=== PATIENT | male | born 1960 | race Hispanic/Latino ===

== ENCOUNTER 2017-10-06 06:20 | Emergency (ER) | payer OTHER, SELFPAY ==
[2017-10-06 07:05] LABS: #Basophils 0.1 thou/uL (0.0-0.2); #Eosinphils 0.1 thou/uL (0.0-0.7); #Lymphocytes 1.7 thou/uL (1.20-3.40); #Monocytes 1.1 thou/uL (0.11-0.59); #Neutrophils 10.4 thou/uL (1.40-6.50); %Basophils 0.6 % (0.0-1.0); %Eosinophils 0.4 % (0.0-10.0); %Lymphocytes 12.4 % (21.0-51.0); %Monocytes 8.3 % (0.0-10.0); %Neutrophils 78.3 % (42.0-75.0); Hemoglobin 15.9 g/dL (14.0-18.0); Mean Corpuscular HGB CONC 33.2 g/dL (32.0-36.0); Mean Corpuscular Hemoglobin 30.2 pg (27.0-31.0); Mean Corpuscular Volume 91.2 fl (80.0-94.0); Mean Platelet Volume 6.8 fL (7.4-10.4); Platelet Count 219 thou/uL (130-400); RBC Distribution Width 12.2 % (11.5-14.5); Red Blood Cell (RBC) Count 5.25 mill/uL (4.70-6.10); White Blood Cell (WBC) Count 13.3 thou/uL (4.8-10.8)
[2017-10-06 07:23] LABS: ALT (SGPT) 69 U/L (8-55); AST (SGOT) 53 U/L (5-34); Acetaminophen Less than 6.0 mcg/mL (10.0-30.0); Albumin 4.2 g/dL (3.5-5.0); Alcohol Less than 10 mg/dL (Less than 10); Alkaline Phosphatase 99 U/L (40-150); Anion Gap 16 mmol/L (10-20); BUN (Urea Nitrogen) 43 mg/dL (8.4-25.7); Bilirubin, Total 1.3 mg/dL (0.2-1.2); Calc. Creatinine Clearance 0 mL/min (70-130); Calcium 9.6 mg/dL (7.8-10.44); Carbon Dioxide 23 mmol/L (22-29); Chloride 100 mmol/L (98-107); Estimated GFR-MDRD 58; Globulin 3.7 g/dL (2.4-3.5); Glucose 142 mg/dL (70-105); Protein, Total 7.9 g/dL (6.0-8.3); Salicylate Less than 8.0 mg/dL (15.0-30.0); Sodium 135 mmol/L (136-145)
[2017-10-06 07:27] LABS: Troponin I Less than 0.010 ng/mL (< 0.028)
[2017-10-06 07:37] LABS: CKMB 8.5 ng/mL (0-6.6)
--- NOTE | 2017-10-06 07:42 | CT ---
HEAD CT WITHOUT CONTRAST: 10/06/2017 HISTORY: Altered mental status. COMPARISON: None. TECHNIQUE: Serial axial CT imaging at 5 mm intervals, from the vertex through the skull base, without contrast. FINDINGS: There is no intracranial hemorrhage, midline shift, or mass effect. There is mild white matter hypod ensity, which may signify a degree of small vessel disease. No intracranial hemorrhage, midline shif t, or mass effect. There is polypoid mucosal thickening within the alveolar recess of the right maxi llary sinus. The imaged paranasal sinuses/mastoid air cells are otherwise unremarkable. No displace d calvarial fracture. IMPRESSION: No acute findings. POS: [facility]
--- NOTE | 2017-10-06 07:45 | RAD ---
CHEST ONE VIEW: HISTORY: Altered mental status. COMPARISON: Chest, one view, 07/30/2015. FINDINGS: The lungs are hypoinflated. Bibasilar atelectasis. No pneumothorax. The cardiac silhouette and med iastinal contours are similar. No acute osseous abnormality. IMPRESSION: Lung hypoinflation and atelectasis with elevation of the right hemidiaphragm, chronic. No acute intr athoracic abnormality. POS: [facility]
[2017-10-06 09:36] LABS: Bilirubin Negative (Negative); Blood, Urine Negative (Negative); Clarity CLEAR (Clear); Glucose, Urine (Dipstick) 500 mg/dL (Negative); Leukocyte Negative (Negative); Nitrite Negative (Negative); Protein, Urine (Dipstick) Trace mg/dL (Neg-Trace); Specific Gravity, Urine 1.027 (1.002-1.036); pH, Urine 5.5 (5.0-9.0)
[2017-10-06 09:49] LABS: Amphetamine Not Detected (NotDetected); Barbiturates Screen Not Detected (NotDetected); Benzodiazepine Screen Not Detected (NotDetected); Cocaine Metabolite Screen Not Detected (NotDetected); Medtox Control Line Valid? VALID (VALID); Medtox Reader # READER 4; Methadone Not Detected (NotDetected); Methamphetamine Not Detected (NotDetected); Opiate Screen Not Detected (NotDetected); Oxycodone Screen Not Detected (NotDetected); Phencyclidine (PCP) Not Detected (NotDetected); THC/Cannabinoid Screen Not Detected (NotDetected); Tricyclic Screen Not Detected (NotDetected)
[2017-10-06 15:13] LABS: CKMB 10.2 ng/mL (0-6.6)
[2017-10-06 16:20] LABS: Troponin I Less than 0.010 ng/mL (< 0.028)
[2017-10-06 20:15] LABS: CKMB 7.1 ng/mL (0-6.6); Critical Call CKMBM RESULT DECREASING
== END 2017-10-07 02:47 ==
LOC: ERS 06:20
DX: F20.9 Schizophrenia, unspecified (principal); E11.9 Type 2 diabetes mellitus without complications; I10 Essential (primary) hypertension; I48.91 Unspecified atrial fibrillation; F31.9 Bipolar disorder, unspecified; F41.9 Anxiety disorder, unspecified; Z79.84 Long term (current) use of oral hypoglycemic drugs; Z79.899 Other long term (current) drug therapy
CPT/HCPCS: 36415; 51701; 70450; 71045; 80053; 80306; 80307; 81003; 82553; 84443; 84484; 85025; 93005; 96360; 96361

== ENCOUNTER 2017-10-09 19:09 | Inpatient (IN) | payer SELFPAY ==
[2017-10-09 20:14] LABS: #Basophils 0.1 thou/uL (0.0-0.2); #Eosinphils 0.2 thou/uL (0.0-0.7); #Lymphocytes 1.8 thou/uL (1.20-3.40); #Monocytes 0.8 thou/uL (0.11-0.59); #Neutrophils 6.4 thou/uL (1.40-6.50); %Basophils 0.6 % (0.0-1.0); %Lymphocytes 19.2 % (21.0-51.0); %Monocytes 8.8 % (0.0-10.0); %Neutrophils 69.3 % (42.0-75.0); Hemoglobin 14.8 g/dL (14.0-18.0); Mean Corpuscular HGB CONC 33.6 g/dL (32.0-36.0); Mean Corpuscular Hemoglobin 30.6 pg (27.0-31.0); Mean Corpuscular Volume 91.1 fl (80.0-94.0); Mean Platelet Volume 6.5 fL (7.4-10.4); Platelet Count 255 thou/uL (130-400); RBC Distribution Width 12.1 % (11.5-14.5); Red Blood Cell (RBC) Count 4.85 mill/uL (4.70-6.10); White Blood Cell (WBC) Count 9.2 thou/uL (4.8-10.8)
[2017-10-09 20:36] LABS: ALT (SGPT) 50 U/L (8-55); AST (SGOT) 55 U/L (5-34); Albumin 3.7 g/dL (3.5-5.0); Alkaline Phosphatase 98 U/L (40-150); Anion Gap 14 mmol/L (10-20); BUN (Urea Nitrogen) 28 mg/dL (8.4-25.7); Bilirubin, Total 0.7 mg/dL (0.2-1.2); CK (CPK) 1618 U/L (30-200); Calc. Creatinine Clearance 0 mL/min (70-130); Calcium 9.2 mg/dL (7.8-10.44); Carbon Dioxide 23 mmol/L (22-29); Chloride 106 mmol/L (98-107); Estimated GFR-MDRD 71; Globulin 3.2 g/dL (2.4-3.5); Glucose 122 mg/dL (70-105); Potassium 4.2 mmol/L (3.5-5.1); Protein, Total 6.9 g/dL (6.0-8.3); Sodium 139 mmol/L (136-145)
[2017-10-09 20:40] LABS: Troponin I Less than 0.010 ng/mL (< 0.028)
[2017-10-09 23:24] LABS: Troponin I Less than 0.010 ng/mL (< 0.028)
[2017-10-10 02:30] LABS: Troponin I 0.013 ng/mL (< 0.028)
[2017-10-10] MEDS ORDERED: Dextrose 5% in Water 1,000 ML IV PRN (13:05)
[2017-10-10] MEDS ORDERED: Dextrose 50% Abboject 50 ML SYRINGE SLOW IVP PRN (13:05)
[2017-10-10] MEDS ORDERED: Acetaminophen 325 MG TAB PO PRN (13:05)
[2017-10-10] MEDS ORDERED: HumaLOG 300 UNITS/3 ML VIAL SC PRN (13:05)
[2017-10-10] MEDS ORDERED: Acetaminophen 650 MG Suppository PR PRN (13:05)
--- NOTE | 2017-10-10 13:21 | HP ---
PRIMARY CARE PHYSICIAN: Dr. Ana Maria Tang CHIEF COMPLAINT: Abnormal labs. HISTORY OF PRESENT ILLNESS: Mr. Klein is a pleasant 57-year-old gentleman who was seen at [facility] on 10/10/2017. The patient is mumbling, unable to provide any history. History was obtained from review of medical chart as well as discussion with the emergency room physi yakov. Mr. Klein was at [facility]. He was found to have elevated CK level and was therefore transferred to the emergency room. REVIEW OF SYSTEMS: Review of systems could not be completed due to patient's noncooperation. PAST MEDICAL HISTORY: Chronic atrial fibrillation, bipolar disorder, hypertension, diabetes mellitus type 2, and schizophrenia. PAST SURGICAL HISTORY: Significant for appendectomy and tonsillectomy. SOCIAL HISTORY: He is a resident at [facility]. No history of tobacco us e, alcohol use or recreational drug use. FAMILY HISTORY: Unable to obtain. ALLERGIES: No known drug allergies. CURRENT MEDICATIONS: Amlodipine 10 mg daily, aspirin 325 mg daily, fluoxetine 10 mg daily, glipizide 5 mg 2 times a day, hydralazine 12.5 mg 3 times a day, lisinopril 30 mg daily, metformin 1000 mg 2 t imes a day, pravastatin 80 mg daily, Risperdal 0.5 mg 2 times a day, Plavix 75 mg daily, Zyprexa 10 m g 2 times a day and Klonopin 2 mg 2 times a day. PHYSICAL EXAMINATION: GENERAL: Mr. Klein is awake and alert, not in acute distress. VITAL SIGNS: Blood pressure is 143/98, pulse is 92, his breathing at rate of 18, and saturating 94% on 2 liters of oxygen. He is afebrile. EYES: No scleral icterus. No conjunctival pallor. ENT: Moist mucosal membranes, no oropharyngeal erythema or exudates. NECK: Supple, nontender, normal range of movement. Trachea is midline. RESPIRATORY: Accessory muscles of breathing are not active. Chest wall movements are symmetric bila terally. LUNGS: Clear to auscultation without wheeze, rhonchi or crepitations. CARDIOVASCULAR: S1 and S2 are heard, regular. Peripheral pulses palpable. No carotid bruit, no per icardial rub. ABDOMEN: Soft, nontender, bowel sounds heard, no hepatomegaly, no splenomegaly. MUSCULOSKELETAL: Power is 5/5 in all 4 extremities. NEUROLOGIC: Cranial nerves II-XII intact. Deep tendon reflexes are 2+. SKIN: No rashes or subcutaneous nodules. LYMPHATIC: No cervical lymphadenopathy. PSYCHIATRIC: Normal mood, normal affect. The patient is oriented to person, place, and time. LABORATORY DATA: Mr. Klein's labs and investigations were reviewed. He had an electrocardiogram , which showed atrial fibrillation, no ST changes to suggest an acute coronary syndrome. He has an u nremarkable CBC, normal sodium, normal potassium, elevated blood urea nitrogen of 28, normal creatini ne, elevated AST of 55, normal ALT, normal alkaline phosphatase, normal total bilirubin and elevated CK of 1618. Troponin I is negative x3. ASSESSMENT AND PLAN: Mr. Klein is a pleasant 57-year-old gentleman who was seen at [facility] on 10/10/2017. His problem list includes: 1. Rhabdomyolysis: Review of medical records reveals that he has had rhabdomyolysis in the past as well. He does not have any muscular rigidity on examination today. He will be admitted to the [facility] for intravenous hydration. We will hold his statin for now and recheck CK level. 2. Diabetes mellitus. Start Accu-Cheks, insulin sliding scale. 3. Atrial fibrillation. Stable, continue home medications. 4. Hypertension: Monitor vital signs, titrate antihypertensives as needed. 5. Schizophrenia and bipolar disorder. Continue home medications. Many thanks for allowing me to participate in your patient's care. Please feel free to contact me wi th any questions or concerns. LEVEL OF RISK: Moderate. LEVEL OF COMPLEXITY: Moderate.
[2017-10-10] MEDS: hydrALAZINE 25 MG TAB PO SCH ×2 (17:42→20:31)
[2017-10-10] MEDS: Sodium Chloride 0.9% 1,000 ML IV SCH ×2 (17:42→20:22)
[2017-10-10] MEDS: glipiZIDE 5 MG TAB PO SCH (17:49)
[2017-10-10] MEDS: metFORMIN 500 MG TAB PO SCH (17:49)
[2017-10-10 18:32] VITALS: BMI 32.9
[2017-10-10] MEDS: risperiDONE 1 MG TAB PO SCH (20:29)
[2017-10-10] MEDS: OLANZapine 5 MG TAB PO SCH (20:29)
[2017-10-10] MEDS: clonazePAM 1 MG TAB PO SCH (20:29)
[2017-10-10] MEDS ORDERED: FLU VACC QS2017-18 36 mo. & older 0.5 ML SYRINGE IM ONE (21:00)
[2017-10-11] MEDS: Sodium Chloride 0.9% 1,000 ML IV SCH ×3 (04:26→19:59)
[2017-10-11 05:40] LABS: #Basophils 0.1 thou/uL (0.0-0.2); #Eosinphils 0.4 thou/uL (0.0-0.7); #Lymphocytes 2.7 thou/uL (1.20-3.40); #Monocytes 0.7 thou/uL (0.11-0.59); #Neutrophils 4.3 thou/uL (1.40-6.50); %Basophils 1.3 % (0.0-1.0); %Eosinophils 4.4 % (0.0-10.0); %Lymphocytes 33.2 % (21.0-51.0); %Monocytes 8.4 % (0.0-10.0); %Neutrophils 52.8 % (42.0-75.0); Hemoglobin 14.9 g/dL (14.0-18.0); Mean Corpuscular Volume 93.8 fl (80.0-94.0); Mean Platelet Volume 6.6 fL (7.4-10.4); Platelet Count 240 thou/uL (130-400); White Blood Cell (WBC) Count 8.2 thou/uL (4.8-10.8)
[2017-10-11 05:48] LABS: Anion Gap 11 mmol/L (10-20); BUN (Urea Nitrogen) 10 mg/dL (8.4-25.7); Calc. Creatinine Clearance 137 mL/min (70-130); Calcium 8.7 mg/dL (7.8-10.44); Carbon Dioxide 27 mmol/L (22-29); Chloride 105 mmol/L (98-107); Estimated GFR-MDRD Greater than 90; Glucose 84 mg/dL (70-105); Sodium 139 mmol/L (136-145)
[2017-10-11] MEDS ORDERED: FLUoxetine HCl 10 MG CAP PO SCH (09:00)
[2017-10-11] MEDS ORDERED: Aspirin 325 mg Enteric Coated Tablet PO SCH (09:00)
[2017-10-11] MEDS ORDERED: Clopidogrel Bisulfate 75 MG TAB PO SCH (09:00)
[2017-10-11] MEDS: Amlodipine 10 MG TAB PO SCH (09:06)
[2017-10-11] MEDS: glipiZIDE 5 MG TAB PO SCH (09:06)
[2017-10-11] MEDS: metFORMIN 500 MG TAB PO SCH ×2 (09:06→16:50)
[2017-10-11] MEDS: clonazePAM 1 MG TAB PO SCH ×2 (09:06→20:01)
[2017-10-11] MEDS: hydrALAZINE 25 MG TAB PO SCH ×3 (09:07→20:01)
[2017-10-11] MEDS: risperiDONE 1 MG TAB PO SCH ×2 (09:08→20:01)
[2017-10-11] MEDS: OLANZapine 5 MG TAB PO SCH ×2 (09:08→20:01)
--- NOTE | 2017-10-11 15:29 | PDOC.PN ---
- Subjective Encounter Start Date: 10/11/17 Encounter Start Time: 15:27 Pt seen for followup re: rhabdomyolysis. Appears comfortable, mumbling, unable to complete ROS. - Objective MAR Reviewed: Yes Vital Signs & Weight: Vital Signs (12 hours) Temp Pulse Resp BP Pulse Ox 10/11/17 11:22 98.1 F 80 16 96/61 92 L 10/11/17 08:00 98 F 73 18 94 L 10/11/17 07:16 98 F 73 18 123/82 94 L 10/11/17 04:26 98.7 F 71 20 143/78 H 95 Weight Weight 210 lb 1.608 oz I&O: 10/10/17 10/11/17 10/12/17 06:59 06:59 06:59 Intake Total 1960 Balance 1960 Result Diagrams: 10/11/17 04:44 10/11/17 04:44 Additional Labs: Accuchecks 10/11/17 10/11/17 10/10/17 11:27 04:45 20:30 POC Glucose 78 82 92 10/10/17 10/10/17 19:30 17:48 POC Glucose 53 L* 93 Phys Exam - Physical Examination Constitutional: NAD HEENT: moist MMs Neck: supple Respiratory: clear to auscultation bilateral Cardiovascular: RRR Gastrointestinal: soft Musculoskeletal: no edema Neurological: moves all 4 limbs Lymphatic: no nodes Psychiatric: normal affect Skin: no rash Dx/Plan (1) Rhabdomyolysis Code(s): M62.82 - RHABDOMYOLYSIS Status: Acute Comment: CK improving. Continue IV fluids, recheck CK level. (2) Atrial fibrillation Code(s): I48.91 - UNSPECIFIED ATRIAL FIBRILLATION Status: Chronic Qualifiers: Atrial fibrillation type: chronic Qualified Code(s): I48.2 - Chronic atrial fibrillation Comment: stable (3) Bipolar disorder Code(s): F31.9 - BIPOLAR DISORDER, UNSPECIFIED Status: Chronic Comment: continue home medications (4) Diabetes type 2, controlled Code(s): E11.9 - TYPE 2 DIABETES MELLITUS WITHOUT COMPLICATIONS Status: Chronic Comment: continue accuchecks, insulin sliding scale (5) Hypertension Code(s): I10 - ESSENTIAL (PRIMARY) HYPERTENSION Status: Chronic Comment: Monitor vital signs, titrate antihypertensives as needed. - Plan * . Back to [facility] when CK improves, likely 24-48 hrs. Review of Systems - Medications/Allergies Allergies/Adverse Reactions: Allergies Allergy/AdvReac Type Severity Reaction Status Date / Time No Known Drug Allergies Allergy Verified 03/07/15 00:36 Medications: Current Medications Acetaminophen (Tylenol) 650 mg PO Q4H PRN PRN Reason: Headache/Fever or Pain Acetaminophen (Tylenol) 650 mg VT Q4H PRN PRN Reason: Headache/Fever or Pain Amlodipine Besylate (Norvasc) 10 mg PO DAILY REPLACED BY [facility] Last Admin: 10/11/17 09:06 Dose: 10 mg Aspirin (Ecotrin) 325 mg PO DAILY REPLACED BY [facility] Last Admin: 10/11/17 09:07 Dose: 325 mg Clonazepam (Klonopin) 2 mg PO BID REPLACED BY [facility] Last Admin: 10/11/17 09:06 Dose: 2 mg Clopidogrel Bisulfate (Plavix) 75 mg PO DAILY REPLACED BY [facility] Last Admin: 10/11/17 09:06 Dose: 75 mg Dextrose/Water (Dextrose 50%) 25 gm SLOW IVP PRN PRN PRN Reason: Hypoglycemia Fluoxetine HCl (Prozac) 10 mg PO DAILY REPLACED BY [facility] Last Admin: 10/11/17 09:06 Dose: 10 mg Glipizide (Glucotrol) 5 mg PO BID-AC REPLACED BY [facility] Last Admin: 10/11/17 09:06 Dose: 5 mg Glucagon (Glucagon) 1 mg IM PRN PRN PRN Reason: Hypoglycemia Hydralazine HCl (Apresoline) 12.5 mg PO TID REPLACED BY [facility] Last Admin: 10/11/17 14:44 Dose: Not Given Dextrose/Water (D5w) 1,000 mls @ 0 mls/hr IV .Q0M PRN; As Directed PRN Reason: Hypoglycemia Sodium Chloride (Normal Saline 0.9%) 1,000 mls @ 125 mls/hr IV .Q8H REPLACED BY [facility] Last Admin: 10/11/17 15:03 Dose: 1,000 mls Insulin Human Lispro (Humalog) 0 units SC .MILD SLIDING SCALE PRN PRN Reason: Mild Correctional Scale Metformin HCl (Glucophage) 1,000 mg PO BID-WM REPLACED BY [facility] Last Admin: 10/11/17 09:06 Dose: 1,000 mg Olanzapine (Zyprexa) 10 mg PO BID REPLACED BY [facility] Last Admin: 10/11/17 09:08 Dose: 10 mg Risperidone (Risperidone) 0.5 mg PO BID REPLACED BY [facility] Last Admin: 10/11/17 09:08 Dose: 0.5 mg
[2017-10-11] MEDS ORDERED: Melatonin 3 MG TAB PO PRN (15:32)
[2017-10-11] MEDS: Lorazepam 1 MG TAB PO SCH (20:01)
[2017-10-11] MEDS ORDERED: glipiZIDE 5 MG TAB PO SCH (21:00)
[2017-10-12] MEDS: Sodium Chloride 0.9% 1,000 ML IV SCH ×2 (04:11→12:15)
[2017-10-12 05:30] LABS: #Basophils 0.1 thou/uL (0.0-0.2); #Eosinphils 0.4 thou/uL (0.0-0.7); #Lymphocytes 2.1 thou/uL (1.20-3.40); #Monocytes 0.6 thou/uL (0.11-0.59); %Basophils 0.9 % (0.0-1.0); %Eosinophils 5.6 % (0.0-10.0); %Lymphocytes 29.6 % (21.0-51.0); %Monocytes 8.6 % (0.0-10.0); %Neutrophils 55.3 % (42.0-75.0); Hemoglobin 14.4 g/dL (14.0-18.0); Mean Corpuscular HGB CONC 32.2 g/dL (32.0-36.0); Mean Corpuscular Hemoglobin 29.6 pg (27.0-31.0); Mean Corpuscular Volume 91.9 fl (80.0-94.0); Mean Platelet Volume 6.4 fL (7.4-10.4); Platelet Count 241 thou/uL (130-400); Red Blood Cell (RBC) Count 4.88 mill/uL (4.70-6.10); White Blood Cell (WBC) Count 7.2 thou/uL (4.8-10.8)
[2017-10-12 05:46] LABS: Anion Gap 11 mmol/L (10-20); BUN (Urea Nitrogen) 11 mg/dL (8.4-25.7); CK (CPK) 502 U/L (30-200); Calc. Creatinine Clearance 129 mL/min (70-130); Calcium 8.9 mg/dL (7.8-10.44); Carbon Dioxide 27 mmol/L (22-29); Chloride 108 mmol/L (98-107); Estimated GFR-MDRD Greater than 90; Glucose 90 mg/dL (70-105); Potassium 4.1 mmol/L (3.5-5.1); Sodium 142 mmol/L (136-145)
[2017-10-12] MEDS ORDERED: glipiZIDE 5 MG TAB PO SCH ×4 (08:00→17:00)
[2017-10-12] MEDS ORDERED: Loratadine 10 MG TAB PO PRN (08:17)
[2017-10-12] MEDS ORDERED: Chloraseptic Spray 180 ml Bottle PO PRN (08:17)
[2017-10-12] MEDS ORDERED: HYDROcodone/Acetaminophen 5/325 mg Tablet PO PRN (08:17)
[2017-10-12] MEDS ORDERED: Loperamide HCl 2 MG CAP PO PRN (08:17)
[2017-10-12] MEDS ORDERED: Zolpidem Tartrate 5 MG TAB PO PRN (08:17)
[2017-10-12] MEDS ORDERED: Milk Of Magnesia 30 ML UDCUP PO PRN (08:17)
[2017-10-12] MEDS ORDERED: Eucerin (Mineral Oil/Petrolatum,White) 30 gm Jar TOP PRN (08:17)
[2017-10-12] MEDS ORDERED: Ondansetron HCl/PF 4 MG/2 ML Vial IVP PRN (08:17)
[2017-10-12] MEDS ORDERED: Artificial Tears 18 DROP/0.9 ML EA EYE PRN (08:17)
[2017-10-12] MEDS ORDERED: hydrALAZINE 20 MG/ML VIAL SLOW IVP PRN (08:17)
[2017-10-12] MEDS ORDERED: Ondansetron ODT 4 MG TAB PO PRN (08:17)
[2017-10-12] MEDS ORDERED: Senokot 8.6 MG TAB PO PRN (08:17)
[2017-10-12] MEDS ORDERED: Sodium Chloride 0.65% Nasal 44 ML BOT EA NARE PRN (08:17)
[2017-10-12] MEDS ORDERED: Diabetic Tussin 200 MG/10 ML UDCUP PO PRN (08:17)
[2017-10-12] MEDS ORDERED: Mag-Al 1200 mg/1200 mg/30 ML UDCUP PO PRN (08:17)
[2017-10-12] MEDS: Famotidine 20 MG TAB PO SCH ×2 (08:41→20:13)
[2017-10-12] MEDS: Lisinopril 20 MG TAB PO SCH (08:41)
[2017-10-12] MEDS: Lorazepam 1 MG TAB PO SCH ×5 (08:42→20:13)
[2017-10-12] MEDS: metFORMIN 500 MG TAB PO SCH (08:42)
[2017-10-12] MEDS: clonazePAM 1 MG TAB PO SCH ×2 (08:42→20:13)
[2017-10-12] MEDS: FLUoxetine HCl 10 MG CAP PO SCH (08:42)
[2017-10-12] MEDS: risperiDONE 1 MG TAB PO SCH ×2 (08:42→20:14)
[2017-10-12] MEDS: Aspirin 325 MG TAB PO SCH (08:42)
[2017-10-12] MEDS: Amlodipine 10 MG TAB PO SCH (08:42)
[2017-10-12] MEDS: OLANZapine 5 MG TAB PO SCH ×2 (08:43→20:14)
[2017-10-12] MEDS: hydrALAZINE 25 MG TAB PO SCH ×3 (08:43→20:14)
[2017-10-12] MEDS: Clopidogrel Bisulfate 75 MG TAB PO SCH (08:43)
--- NOTE | 2017-10-12 11:52 | PDOC.PN ---
- Subjective Encounter Start Date: 10/12/17 Encounter Start Time: 09:00 -: old records requested/rev Patient seen and examined. No new complaints. No overnight events pt is sleepy this morning, he is trying to get out of bed, pulls iv line - Objective MAR Reviewed: Yes Vital Signs & Weight: Vital Signs (12 hours) Temp Pulse Resp BP Pulse Ox 10/12/17 08:43 90 10/12/17 08:00 97.9 F 90 16 138/82 94 L 10/12/17 03:50 98.1 F 73 16 148/94 H 93 L 10/12/17 00:19 94 L 10/12/17 00:00 98.0 F 82 16 126/85 92 L Weight Weight 210 lb 1.608 oz I&O: 10/11/17 10/12/17 10/13/17 06:59 06:59 06:59 Intake Total 1960 1949 Output Total 600 Balance 1960 1349 Result Diagrams: 10/12/17 03:52 10/12/17 03:52 Additional Labs: Accuchecks 10/12/17 10/11/17 10/11/17 04:34 19:18 17:22 POC Glucose 92 116 H 150 H 10/11/17 10/11/17 16:02 11:27 POC Glucose 64 L 78 Phys Exam - Physical Examination Constitutional: NAD HEENT: PERRLA, moist MMs, sclera anicteric Neck: no JVD, supple Respiratory: no wheezing, no rales, no rhonchi Cardiovascular: RRR, no significant murmur, no rub Gastrointestinal: soft, non-tender, no distention, positive bowel sounds Musculoskeletal: no edema, pulses present Neurological: moves all 4 limbs Lymphatic: no nodes Skin: no rash, normal turgor Dx/Plan (1) Hypoglycemia associated with type 2 diabetes mellitus Code(s): E11.649 - TYPE 2 DIABETES MELLITUS WITH HYPOGLYCEMIA WITHOUT COMA Status: Acute (2) Rhabdomyolysis Code(s): M62.82 - RHABDOMYOLYSIS Status: Acute Comment: CK improving. Continue IV fluids, recheck CK level. (3) Bipolar disorder Code(s): F31.9 - BIPOLAR DISORDER, UNSPECIFIED Status: Chronic Comment: continue home medications (4) Diabetes type 2, controlled Code(s): E11.9 - TYPE 2 DIABETES MELLITUS WITHOUT COMPLICATIONS Status: Chronic Comment: continue accuchecks, insulin sliding scale (5) Hypertension Code(s): I10 - ESSENTIAL (PRIMARY) HYPERTENSION Status: Chronic Comment: Monitor vital signs, titrate antihypertensives as needed. (6) Lumbar stenosis with neurogenic claudication Code(s): M48.06 - SPINAL STENOSIS, LUMBAR REGION * DO NOT USE * Status: Chronic (7) Obesity (BMI 30-39.9) Code(s): E66.9 - OBESITY, UNSPECIFIED Status: Chronic (8) Paroxysmal atrial fibrillation Code(s): I48.0 - PAROXYSMAL ATRIAL FIBRILLATION Status: Chronic - Plan cont current plan of care, PT/OT, social media strategist * continue ivf at 75 ml per hour * medication reviewed as below * symptomatic treatment. * will need social work for discharge planning Review of Systems - Review of Systems Other: unable to review due to his variable level of mood - Medications/Allergies Allergies/Adverse Reactions: Allergies Allergy/AdvReac Type Severity Reaction Status Date / Time No Known Drug Allergies Allergy Verified 03/07/15 00:36 Medications: Current Medications Acetaminophen (Tylenol) 650 mg PO Q4H PRN PRN Reason: Headache/Fever or Pain Hydrocodone Bitart/Acetaminophen ([place] 5/325) 1 tab PO Q4H PRN PRN Reason: Moderate Pain (4-6) Al Hydroxide/Mg Hydroxide (Maalox) 15 ml PO Q4H PRN PRN Reason: Heartburn or Indigestion Amlodipine Besylate (Norvasc) 10 mg PO DAILY [facility] Last Admin: 10/12/17 08:42 Dose: 10 mg Artificial Tears (Tears Naturale) 0 drop EA EYE PRN PRN PRN Reason: Dry Eyes Aspirin (Aspirin) 325 mg PO DAILY [facility] Last Admin: 10/12/17 08:42 Dose: 325 mg Clonazepam (Klonopin) 2 mg PO BID [facility] Last Admin: 10/12/17 08:42 Dose: 2 mg Clopidogrel Bisulfate (Plavix) 75 mg PO DAILY [facility] Last Admin: 10/12/17 08:43 Dose: 75 mg Dextrose/Water (Dextrose 50%) 25 gm SLOW IVP PRN PRN PRN Reason: Hypoglycemia Famotidine (Pepcid) 20 mg PO BID [facility] Last Admin: 10/12/17 08:41 Dose: 20 mg Fluoxetine HCl (Prozac) 10 mg PO DAILY [facility] Last Admin: 10/12/17 08:42 Dose: 10 mg Glip[facility]) [facility] Glucagon (Glucagon) 1 mg IM PRN PRN PRN Reason: Hypoglycemia Guaifenesin (Robitussin Sf) 200 mg PO Q4H PRN PRN Reason: Cough Hydralazine HCl (Apresoline) 12.5 mg PO TID [facility] Last Admin: 10/12/17 08:43 Dose: 12.5 mg Hydralazine HCl (Apresoline) 20 mg SLOW IVP Q4H PRN PRN Reason: Systolic BP > 180 Dextrose/Water (D5w) 1,000 mls @ 0 mls/hr IV .Q0M PRN; As Directed PRN Reason: Hypoglycemia Sodium Chloride (Normal Saline 0.9%) 1,000 mls @ 125 mls/hr IV .Q8H [facility] Last Admin: 10/12/17 04:11 Dose: 1,000 mls Insulin Human Lispro (Humalog) 0 units SC .MILD SLIDING SCALE PRN PRN Reason: Mild Correctional Scale Lisinopril (Zestril) 30 mg PO DAILY [facility] Last Admin: 10/12/17 08:41 Dose: 30 mg Loperamide HCl (Imodium) 2 mg PO PRN PRN PRN Reason: Diarrhea/Loose Stools Loratadine (Claritin) 10 mg PO DAILYPRN PRN PRN Reason: Sinus Symptoms Lorazepam (Ativan) 1 mg PO TID [facility] Last Admin: 10/12/17 08:42 Dose: 1 mg Magnesium Hydroxide (Milk Of Magnesium) 30 ml PO DAILYPRN PRN PRN Reason: Constipation Melatonin (Melatonin) 3 mg PO HS PRN PRN Reason: Insomnia Metformin HCl (Glucophage) [facility] Last Admin: 10/12/17 08:42 Dose: 1,000 mg Mineral Oil/White Petrolatum (Eucerin Cream) 0 gm TOP BIDPRN PRN PRN Reason: Dry Skin Olanzapine (Zyprexa) 10 mg PO BID [facility] Last Admin: 10/12/17 08:43 Dose: 10 mg Ondansetron HCl (Zofran Odt) 4 mg PO Q6H PRN PRN Reason: Nausea/Vomiting Ondansetron HCl (Zofran) 4 mg IVP Q6H PRN PRN Reason: Nausea/Vomiting Phenol (Chloraseptic [place] 180 Ml Bot) 0 ml PO PRN PRN PRN Reason: Sore Throat Risperidone (Risperidone) 0.5 mg PO BID [facility] Last Admin: 10/12/17 08:42 Dose: 0.5 mg Senna (Senokot) 2 tab PO HSPRN PRN PRN Reason: Constipation Sodium Chloride ([place] Nasal [place] 0.65%) 0 ml EA NARE QIDPRN PRN PRN Reason: Nasal Congestion Sodium Chloride (Flush - Normal Saline) 10 ml IVF Q12HR [facility] Last Admin: 10/12/17 08:43 Dose: Not Given Sodium Chloride (Flush - Normal Saline) 10 ml IVF PRN PRN PRN Reason: Saline Flush Zolpidem Tartrate (Ambien) 5 mg PO HSPRN PRN PRN Reason: Insomnia
[2017-10-13] MEDS: Sodium Chloride 0.9% 1,000 ML IV SCH ×2 (01:27→16:15)
[2017-10-13 05:04] LABS: #Basophils 0.1 thou/uL (0.0-0.2); #Eosinphils 0.4 thou/uL (0.0-0.7); #Lymphocytes 2.8 thou/uL (1.20-3.40); #Monocytes 0.6 thou/uL (0.11-0.59); #Neutrophils 3.8 thou/uL (1.40-6.50); %Eosinophils 5.2 % (0.0-10.0); %Monocytes 8.3 % (0.0-10.0); %Neutrophils 49.5 % (42.0-75.0); Hemoglobin 14.5 g/dL (14.0-18.0); Mean Corpuscular HGB CONC 33.1 g/dL (32.0-36.0); Mean Corpuscular Hemoglobin 30.4 pg (27.0-31.0); Mean Platelet Volume 6.2 fL (7.4-10.4); Platelet Count 245 thou/uL (130-400); Red Blood Cell (RBC) Count 4.76 mill/uL (4.70-6.10); White Blood Cell (WBC) Count 7.7 thou/uL (4.8-10.8)
[2017-10-13 05:36] LABS: Anion Gap 9 mmol/L (10-20); BUN (Urea Nitrogen) 11 mg/dL (8.4-25.7); CK (CPK) 309 U/L (30-200); Calc. Creatinine Clearance 114 mL/min (70-130); Calcium 8.9 mg/dL (7.8-10.44); Carbon Dioxide 29 mmol/L (22-29); Chloride 107 mmol/L (98-107); Estimated GFR-MDRD 81; Glucose 101 mg/dL (70-105); Potassium 4.1 mmol/L (3.5-5.1); Sodium 141 mmol/L (136-145)
[2017-10-13] MEDS: OLANZapine 5 MG TAB PO SCH ×2 (08:14→20:52)
[2017-10-13] MEDS: clonazePAM 1 MG TAB PO SCH ×2 (08:15→20:52)
[2017-10-13] MEDS: Aspirin 325 MG TAB PO SCH (08:15)
[2017-10-13] MEDS: Famotidine 20 MG TAB PO SCH ×2 (08:15→20:53)
[2017-10-13] MEDS: hydrALAZINE 25 MG TAB PO SCH ×3 (08:15→20:54)
[2017-10-13] MEDS: Amlodipine 10 MG TAB PO SCH (08:15)
[2017-10-13] MEDS: FLUoxetine HCl 10 MG CAP PO SCH (08:15)
[2017-10-13] MEDS: Lisinopril 20 MG TAB PO SCH (08:16)
[2017-10-13] MEDS: Lorazepam 1 MG TAB PO SCH ×4 (08:16→20:53)
[2017-10-13] MEDS: Clopidogrel Bisulfate 75 MG TAB PO SCH (08:16)
[2017-10-13] MEDS: risperiDONE 1 MG TAB PO SCH ×2 (08:16→20:52)
--- NOTE | 2017-10-13 11:01 | PDOC.PN ---
- Subjective Encounter Start Date: 10/13/17 Encounter Start Time: 09:30 Patient seen and examined. No new complaints. No overnight events - Objective MAR Reviewed: Yes Vital Signs & Weight: Vital Signs (12 hours) Temp Pulse Resp BP BP Pulse Ox 10/13/17 08:16 137/86 10/13/17 08:00 98.6 F 77 20 144/84 H 93 L 10/13/17 07:38 98.6 F 77 20 144/84 H 93 L 10/13/17 04:00 97.7 F 88 20 130/85 94 L 10/13/17 00:17 98.3 F 88 20 116/84 95 Weight Weight 210 lb 1.608 oz I&O: 10/12/17 10/13/17 10/14/17 06:59 06:59 06:59 Intake Total 1949 1658 Output Total 600 Balance 1349 1658 Result Diagrams: 10/13/17 04:20 10/13/17 04:20 Additional Labs: Accuchecks 10/13/17 10/12/17 10/12/17 04:39 19:22 16:10 POC Glucose 100 172 H 112 H 10/12/17 11:06 POC Glucose 107 Phys Exam - Physical Examination Constitutional: NAD HEENT: PERRLA, moist MMs, sclera anicteric Neck: no JVD, supple Respiratory: no wheezing, no rales, no rhonchi Cardiovascular: RRR, no significant murmur, no rub Gastrointestinal: soft, non-tender, no distention, positive bowel sounds Musculoskeletal: no edema, pulses present Neurological: non-focal, normal sensation Lymphatic: no nodes Psychiatric: normal affect Skin: no rash, normal turgor Dx/Plan (1) Hypoglycemia associated with type 2 diabetes mellitus Code(s): E11.649 - TYPE 2 DIABETES MELLITUS WITH HYPOGLYCEMIA WITHOUT COMA Status: Acute (2) Rhabdomyolysis Code(s): M62.82 - RHABDOMYOLYSIS Status: Acute Comment: CK improving. Continue IV fluids, recheck CK level. (3) Bipolar disorder Code(s): F31.9 - BIPOLAR DISORDER, UNSPECIFIED Status: Chronic Comment: continue home medications (4) Diabetes type 2, controlled Code(s): E11.9 - TYPE 2 DIABETES MELLITUS WITHOUT COMPLICATIONS Status: Chronic Comment: continue accuchecks, insulin sliding scale (5) Hypertension Code(s): I10 - ESSENTIAL (PRIMARY) HYPERTENSION Status: Chronic Comment: Monitor vital signs, titrate antihypertensives as needed. (6) Lumbar stenosis with neurogenic claudication Code(s): M48.06 - SPINAL STENOSIS, LUMBAR REGION * DO NOT USE * Status: Chronic (7) Obesity (BMI 30-39.9) Code(s): E66.9 - OBESITY, UNSPECIFIED Status: Chronic (8) Paroxysmal atrial fibrillation Code(s): I48.0 - PAROXYSMAL ATRIAL FIBRILLATION Status: Chronic - Plan cont current plan of care * CK improved * today will call [facility] * needs to go back to psych facility if they take him * medication reviewed as below * symptomatic treatment. Review of Systems - Review of Systems Other: not reliable with pt as pt is psychotic - Medications/Allergies Allergies/Adverse Reactions: Allergies Allergy/AdvReac Type Severity Reaction Status Date / Time No Known Drug Allergies Allergy Verified 03/07/15 00:36 Medications: Current Medications Acetaminophen (Tylenol) 650 mg PO Q4H PRN PRN Reason: Headache/Fever or Pain Hydrocodone Bitart/Acetaminophen ([place] 5/325) 1 tab PO Q4H PRN PRN Reason: Moderate Pain (4-6) Al Hydroxide/Mg Hydroxide (Maalox) 15 ml PO Q4H PRN PRN Reason: Heartburn or Indigestion Amlodipine Besylate (Norvasc) 10 mg PO DAILY [facility] Last Admin: 10/13/17 08:15 Dose: 10 mg Artificial Tears (Tears Naturale) 0 drop EA EYE PRN PRN PRN Reason: Dry Eyes Aspirin (Aspirin) 325 mg PO DAILY [facility] Last Admin: 10/13/17 08:15 Dose: 325 mg Clonazepam (Klonopin) 2 mg PO BID [facility] Last Admin: 10/13/17 08:15 Dose: 2 mg Clopidogrel Bisulfate (Plavix) 75 mg PO DAILY [facility] Last Admin: 10/13/17 08:16 Dose: 75 mg Dextrose/Water (Dextrose 50%) 25 gm SLOW IVP PRN PRN PRN Reason: Hypoglycemia Famotidine (Pepcid) 20 mg PO BID [facility] Last Admin: 10/13/17 08:15 Dose: 20 mg Fluoxetine HCl (Prozac) 10 mg PO DAILY [facility] Last Admin: 10/13/17 08:15 Dose: 10 mg Glucagon (Glucagon) 1 mg IM PRN PRN PRN Reason: Hypoglycemia Guaifenesin (Robitussin Sf) 200 mg PO Q4H PRN PRN Reason: Cough Hydralazine HCl (Apresoline) 12.5 mg PO TID [facility] Last Admin: 10/13/17 08:15 Dose: 12.5 mg Hydralazine HCl (Apresoline) 20 mg SLOW IVP Q4H PRN PRN Reason: Systolic BP > 180 Dextrose/Water (D5w) 1,000 mls @ 0 mls/hr IV .Q0M PRN; As Directed PRN Reason: Hypoglycemia Sodium Chloride (Normal Saline 0.9%) 1,000 mls @ 75 mls/hr IV .[id number] [facility] Last Admin: 10/13/17 01:27 Dose: 1,000 mls Insulin Human Lispro (Humalog) 0 units SC .MILD SLIDING SCALE PRN PRN Reason: Mild Correctional Scale Lisinopril (Zestril) 30 mg PO DAILY [facility] Last Admin: 10/13/17 08:16 Dose: 30 mg Loperamide HCl (Imodium) 2 mg PO PRN PRN PRN Reason: Diarrhea/Loose Stools Loratadine (Claritin) 10 mg PO DAILYPRN PRN PRN Reason: Sinus Symptoms Lorazepam (Ativan) 1 mg PO TID [facility] Last Admin: 10/13/17 08:16 Dose: 1 mg Magnesium Hydroxide (Milk Of Magnesium) 30 ml PO DAILYPRN PRN PRN Reason: Constipation Last Admin: 10/13/17 08:29 Dose: 30 ml Melatonin (Melatonin) 3 mg PO HS PRN PRN Reason: Insomnia Mineral Oil/White Petrolatum (Eucerin Cream) 0 gm TOP BIDPRN PRN PRN Reason: Dry Skin Olanzapine (Zyprexa) 10 mg PO BID [facility] Last Admin: 10/13/17 08:14 Dose: 10 mg Ondansetron HCl (Zofran Odt) 4 mg PO Q6H PRN PRN Reason: Nausea/Vomiting Ondansetron HCl (Zofran) 4 mg IVP Q6H PRN PRN Reason: Nausea/Vomiting Phenol (Chloraseptic [place] 180 Ml Bot) 0 ml PO PRN PRN PRN Reason: Sore Throat Risperidone (Risperidone) 0.5 mg PO BID [facility] Last Admin: 10/13/17 08:16 Dose: 0.5 mg Senna (Senokot) 2 tab PO HSPRN PRN PRN Reason: Constipation Sodium Chloride ([place] Nasal [place] 0.65%) 0 ml EA NARE QIDPRN PRN PRN Reason: Nasal Congestion Sodium Chloride (Flush - Normal Saline) 10 ml IVF Q12HR [facility] Last Admin: 10/13/17 08:16 Dose: Not Given Sodium Chloride (Flush - Normal Saline) 10 ml IVF PRN PRN PRN Reason: Saline Flush Zolpidem Tartrate (Ambien) 5 mg PO HSPRN PRN PRN Reason: Insomnia
[2017-10-14] MEDS: Sodium Chloride 0.9% 1,000 ML IV SCH (04:03)
[2017-10-14] MEDS: clonazePAM 1 MG TAB PO SCH ×2 (09:10→20:48)
[2017-10-14] MEDS: Amlodipine 10 MG TAB PO SCH (09:10)
[2017-10-14] MEDS: Aspirin 325 MG TAB PO SCH (09:10)
[2017-10-14] MEDS: hydrALAZINE 25 MG TAB PO SCH ×3 (09:11→20:48)
[2017-10-14] MEDS: Famotidine 20 MG TAB PO SCH ×2 (09:11→20:49)
[2017-10-14] MEDS: FLUoxetine HCl 10 MG CAP PO SCH (09:11)
[2017-10-14] MEDS: Lisinopril 20 MG TAB PO SCH (09:12)
[2017-10-14] MEDS: Lorazepam 1 MG TAB PO SCH ×3 (09:13→20:49)
[2017-10-14] MEDS: Clopidogrel Bisulfate 75 MG TAB PO SCH (09:14)
[2017-10-14] MEDS: OLANZapine 5 MG TAB PO SCH ×2 (09:14→22:06)
[2017-10-14] MEDS: risperiDONE 1 MG TAB PO SCH ×2 (09:58→22:05)
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
--- NOTE | 2017-10-14 23:52 | PDOC.EVN ---
Event Note - Event Note Event Note: Bed free at the inpatient psychiatri c facility, report calleed to Dr Swain, pt accepted. Transferred to [facility] D/C summary per Dr Bhatt
--- NOTE | 2017-10-15 06:55 | PDOC.PN ---
- Subjective Encounter Start Date: 10/15/17 Encounter Start Time: 06:00 Patient seen and examined. No new complaints. No overnight events - Objective MAR Reviewed: Yes Vital Signs & Weight: Vital Signs (12 hours) Temp Pulse Resp BP BP Pulse Ox 10/15/17 04:30 97.7 F 89 20 142/90 H 95 10/15/17 00:52 97.6 F 69 18 123/90 94 L 10/14/17 20:48 79 137/91 H 10/14/17 20:00 98.1 F 77 20 137/91 H 94 L Weight Weight 210 lb 1.608 oz I&O: 10/13/17 10/14/17 10/15/17 06:59 06:59 06:59 Intake Total 6395 569 7849 Balance 3030 674 8938 Result Diagrams: 10/13/17 04:20 10/13/17 04:20 Additional Labs: Accuchecks 10/15/17 10/14/17 10/14/17 05:44 19:32 15:55 POC Glucose 146 H 147 H 91 10/14/17 11:10 POC Glucose 109 Phys Exam - Physical Examination Constitutional: NAD HEENT: PERRLA, moist MMs, sclera anicteric Neck: no JVD, supple Respiratory: no wheezing, no rales, no rhonchi Cardiovascular: RRR, no significant murmur, no rub Gastrointestinal: soft, non-tender, no distention, positive bowel sounds Musculoskeletal: no edema, pulses present Neurological: non-focal, normal sensation Lymphatic: no nodes Psychiatric: normal affect Skin: no rash, normal turgor Dx/Plan (1) Hypoglycemia associated with type 2 diabetes mellitus Code(s): E11.649 - TYPE 2 DIABETES MELLITUS WITH HYPOGLYCEMIA WITHOUT COMA Status: Resolved (2) Rhabdomyolysis Code(s): M62.82 - RHABDOMYOLYSIS Status: Resolved Comment: CK improving. Continue IV fluids, recheck CK level. (3) Bipolar disorder Code(s): F31.9 - BIPOLAR DISORDER, UNSPECIFIED Status: Chronic Comment: continue home medications (4) Diabetes type 2, controlled Code(s): E11.9 - TYPE 2 DIABETES MELLITUS WITHOUT COMPLICATIONS Status: Chronic Comment: continue accuchecks, insulin sliding scale (5) Hypertension Code(s): I10 - ESSENTIAL (PRIMARY) HYPERTENSION Status: Chronic Comment: Monitor vital signs, titrate antihypertensives as needed. (6) Lumbar stenosis with neurogenic claudication Code(s): M48.06 - SPINAL STENOSIS, LUMBAR REGION * DO NOT USE * Status: Chronic (7) Obesity (BMI 30-39.9) Code(s): E66.9 - OBESITY, UNSPECIFIED Status: Chronic (8) Paroxysmal atrial fibrillation Code(s): I48.0 - PAROXYSMAL ATRIAL FIBRILLATION Status: Chronic - Plan cont current plan of care * medication reviewed as below * symptomatic treatment * plan for discharge to psych facility. Review of Systems - Review of Systems Eyes: negative: Pain, Vision Change, Conjunctivae Inflammation, Eyelid Inflammation, Redness, Other ENT: negative: Ear Pain, Ear Discharge, Nose Pain, Nose Discharge, Nose Congestion, Mouth Pain, Mouth Swelling, Throat Pain, Throat Swelling, Other Respiratory: negative: Cough, Dry, Shortness of Breath, Hemoptysis, SOB with Excertion, Pleuritic Pain, Sputum, Wheezing Cardiovascular: negative: chest pain, palpitations, orthopnea, paroxysmal nocturnal dyspnea, edema, light headedness, other Gastrointestinal: negative: Nausea, Vomiting, Abdominal Pain, Diarrhea, Constipation, Melena, Hematochezia, Other Genitourinary: negative: Dysuria, Frequency, Incontinence, Hematuria, Retention , Other Musculoskeletal: negative: Neck Pain, Shoulder Pain, Arm Pain, Back Pain, Hand Pain, Leg Pain, Foot Pain, Other - Medications/Allergies Allergies/Adverse Reactions: Allergies Allergy/AdvReac Type Severity Reaction Status Date / Time No Known Drug Allergies Allergy Verified 03/07/15 00:36 Medications: Current Medications Acetaminophen (Tylenol) 650 mg PO Q4H PRN PRN Reason: Headache/Fever or Pain Last Admin: 10/13/17 12:49 Dose: 650 mg Hydrocodone Bitart/Acetaminophen ([place] 5/325) 1 tab PO Q4H PRN PRN Reason: Moderate Pain (4-6) Al Hydroxide/Mg Hydroxide (Maalox) 15 ml PO Q4H PRN PRN Reason: Heartburn or Indigestion Amlodipine Besylate (Norvasc) 10 mg PO DAILY [facility] Last Admin: 10/14/17 09:10 Dose: 10 mg Artificial Tears (Tears Naturale) 0 drop EA EYE PRN PRN PRN Reason: Dry Eyes Aspirin (Aspirin) 325 mg PO DAILY [facility] Last Admin: 10/14/17 09:10 Dose: 325 mg Clonazepam (Klonopin) 2 mg PO BID [facility] Last Admin: 10/14/17 20:48 Dose: 2 mg Clopidogrel Bisulfate (Plavix) 75 mg PO DAILY [facility] Last Admin: 10/14/17 09:14 Dose: 75 mg Dextrose/Water (Dextrose 50%) 25 gm SLOW IVP PRN PRN PRN Reason: Hypoglycemia Famotidine (Pepcid) 20 mg PO BID [facility] Last Admin: 10/14/17 20:49 Dose: 20 mg Fluoxetine HCl (Prozac) 10 mg PO DAILY [facility] Last Admin: 10/14/17 09:11 Dose: 10 mg Glucagon (Glucagon) 1 mg IM PRN PRN PRN Reason: Hypoglycemia Guaifenesin (Robitussin Sf) 200 mg PO Q4H PRN PRN Reason: Cough Hydralazine HCl (Apresoline) 12.5 mg PO TID [facility] Last Admin: 10/14/17 20:48 Dose: 12.5 mg Hydralazine HCl (Apresoline) 20 mg SLOW IVP Q4H PRN PRN Reason: Systolic BP > 180 Dextrose/Water (D5w) 1,000 mls @ 0 mls/hr IV .Q0M PRN; As Directed PRN Reason: Hypoglycemia Insulin Human Lispro (Humalog) 0 units SC .MILD SLIDING SCALE PRN PRN Reason: Mild Correctional Scale Lisinopril (Zestril) 30 mg PO DAILY [facility] Last Admin: 10/14/17 09:12 Dose: 30 mg Loperamide HCl (Imodium) 2 mg PO PRN PRN PRN Reason: Diarrhea/Loose Stools Loratadine (Claritin) 10 mg PO DAILYPRN PRN PRN Reason: Sinus Symptoms Lorazepam (Ativan) 1 mg PO TID [facility] Last Admin: 10/14/17 20:49 Dose: 1 mg Magnesium Hydroxide (Milk Of Magnesium) 30 ml PO DAILYPRN PRN PRN Reason: Constipation Last Admin: 10/13/17 08:29 Dose: 30 ml Melatonin (Melatonin) 3 mg PO HS PRN PRN Reason: Insomnia Mineral Oil/White Petrolatum (Eucerin Cream) 0 gm TOP BIDPRN PRN PRN Reason: Dry Skin Olanzapine (Zyprexa) 10 mg PO BID [facility] Last Admin: 10/14/17 22:06 Dose: 10 mg Ondansetron HCl (Zofran Odt) 4 mg PO Q6H PRN PRN Reason: Nausea/Vomiting Ondansetron HCl (Zofran) 4 mg IVP Q6H PRN PRN Reason: Nausea/Vomiting Phenol (Chloraseptic [place] 180 Ml Bot) 0 ml PO PRN PRN PRN Reason: Sore Throat Risperidone (Risperidone) 0.5 mg PO BID [facility] Last Admin: 10/14/17 22:05 Dose: 0.5 mg Senna (Senokot) 2 tab PO HSPRN PRN PRN Reason: Constipation Sodium Chloride ([place] Nasal [place] 0.65%) 0 ml EA NARE QIDPRN PRN PRN Reason: Nasal Congestion Sodium Chloride (Flush - Normal Saline) 10 ml IVF Q12HR [facility] Last Admin: 10/14/17 20:54 Dose: 10 ml Sodium Chloride (Flush - Normal Saline) 10 ml IVF PRN PRN PRN Reason: Saline Flush Zolpidem Tartrate (Ambien) 5 mg PO HSPRN PRN PRN Reason: Insomnia
[2017-10-15 08:08] VITALS: BP 107/78
[2017-10-15] MEDS: Clopidogrel Bisulfate 75 MG TAB PO SCH (08:28)
[2017-10-15] MEDS: Famotidine 20 MG TAB PO SCH (08:28)
[2017-10-15] MEDS: FLUoxetine HCl 10 MG CAP PO SCH (08:28)
[2017-10-15] MEDS: Aspirin 325 MG TAB PO SCH (08:28)
[2017-10-15] MEDS: risperiDONE 1 MG TAB PO SCH (08:29)
[2017-10-15] MEDS: OLANZapine 5 MG TAB PO SCH (08:29)
[2017-10-15 08:48] VITALS: TEMP 97.2
--- NOTE | 2017-10-15 11:55 | DIS ---
DATE OF ADMISSION: 10/09/2017 DATE OF DISCHARGE: 10/15/2017 PRIMARY CARE PHYSICIAN: [facility] call admission. DISCHARGE DISPOSITION: Inpatient psych facility. PRIMARY DISCHARGE DIAGNOSES: Psychosis, rhabdomyolysis. SECONDARY DISCHARGE DIAGNOSES: Schizophrenia, bipolar disorder, diabetes type 2, hypertension, lumba r stenosis with neurogenic claudication, obesity with body mass index 32, paroxysmal atrial fibrillat ion, diabetes type 2, hypoglycemia and rhabdomyolysis improved. PRIMARY PROCEDURE/OPERATION: None. RADIOLOGICAL INVESTIGATION: None. SIGNIFICANT LABORATORY DATA: Hemoglobin 14.5, CK 309, creatinine 0.96. DISCHARGE MEDICATIONS: Amlodipine 10 mg p.o. daily, aspirin 325 mg p.o. daily, clonazepam 2 mg p.o. b.i.d., Plavix 75 mg p.o. daily, Prozac 10 mg p.o. daily, glipizide 5 mg p.o. b.i.d., hydralazine 12. 5 mg p.o. t.i.d., lisinopril 30 mg p.o. daily, Ativan 1 mg p.o. t.i.d., melatonin 3 mg p.o. at bedtim e p.r.n., metformin 1000 mg p.o. b.i.d., Zyprexa 10 mg p.o. b.i.d., pravastatin 80 mg p.o. at bedtime , and risperidone 0.5 mg p.o. b.i.d. CONTRAINDICATIONS: None. CODE STATUS: FULL CODE. INPATIENT CONSULTANTS: None. ALLERGIES: No known drug allergy. DISCHARGE PLAN: Post hospital, patient will follow up with primary care physician. The patient is d ischarged to inpatient psych facility at [facility]. HOSPITAL COURSE: A 57-year-old male who was admitted by Dr. Arias, please see his H&P for f urther details. This patient has underlying history of bipolar disorder, schizophrenia. He was at [facility] where he was found with rhabdomyolysis and that is why he was sent to our hospital for medical treatment. The patient was hydrated with IV fluid and his CK improved to basel ine and normal. While in hospital, he was persistently psychotic and that is why we consulted [facility] a nd MR agreed to send him to inpatient psych facility. At this point, patient is hemodynamically stable while in hospital. He had one episode of hypoglycem ia, but that was resolved. His rhabdomyolysis, improved. The patient is seen and examined this morning, doc to doc was done. The patient is [facility]. Please see my progress note from today for further detail.
--- NOTE | 2017-10-18 22:58 | EKG ---
Test Reason : Blood Pressure : / mmHG Vent. Rate : 097 BPM Atrial Rate : 053 BPM P-R Int : 000 ms QRS Dur : 082 ms QT Int : 340 ms P-R-T Axes : 000 037 043 degrees QTc Int : 431 ms Atrial fibrillation RSR' or QR pattern in V1 suggests right ventricular conduction delay Septal infarct , age undetermined Abnormal ECG Confirmed by SANDI SEVILLA, SHELLEY ([id number]), manager editorial GARY CALIXTO ([id number]) on 10/18/2017 10:58:05 PM Referred By: Confirmed By:SHELLEY JUNIOR MD
== END 2017-10-15 08:47 | DRG 558 ==
LOC: ERS 19:09 → ERHOLD 21:10 → T4-B 10-10 15:58 → 3SW 10-14 23:53 → T4-B 10-15 00:04
PROVIDERS: ADMIT Internal Medicine; ATTEND Internal Medicine
PROC: 3E0234Z Introduction of Serum, Toxoid and Vaccine into Muscle, Percutaneous Approach (ICD-10-PCS; principal; 2017-10-15)
DX: Z23 Encounter for immunization; F20.9 Schizophrenia, unspecified; Z79.4 Long term (current) use of insulin; I48.2 Chronic atrial fibrillation; E66.9 Obesity, unspecified; M48.062 Spinal stenosis, lumbar region with neurogenic claudication; M62.82 Rhabdomyolysis; I48.0 Paroxysmal atrial fibrillation; E11.649 Type 2 diabetes mellitus with hypoglycemia without coma; F31.9 Bipolar disorder, unspecified; I10 Essential (primary) hypertension; Z68.32 Body mass index [BMI] 32.0-32.9, adult
CPT/HCPCS: 36415; 36416; 80048; 80053; 82550; 82553; 84484; 85025; 90471; 90682; 90732; 93005; 96360; 96361; A4216; G0008; G0009; Q2036

== ENCOUNTER 2017-10-25 15:46 | Observation (INO) | payer SELFPAY ==
[2017-10-25 16:38] LABS: Bilirubin Small (Negative); Blood, Urine Negative (Negative); Clarity CLEAR (Clear); Glucose, Urine (Dipstick) Negative (Negative); Leukocyte Negative (Negative); Nitrite Negative (Negative); Protein, Urine (Dipstick) Trace mg/dL (Neg-Trace); Specific Gravity, Urine 1.026 (1.002-1.036)
[2017-10-25 16:41] LABS: #Basophils 0.1 thou/uL (0.0-0.2); #Eosinphils 0.2 thou/uL (0.0-0.7); #Lymphocytes 2.8 thou/uL (1.20-3.40); #Monocytes 0.5 thou/uL (0.11-0.59); #Neutrophils 3.8 thou/uL (1.40-6.50); %Basophils 1.2 % (0.0-1.0); %Eosinophils 2.4 % (0.0-10.0); %Lymphocytes 38.5 % (21.0-51.0); %Monocytes 6.9 % (0.0-10.0); Hemoglobin 13.9 g/dL (14.0-18.0); Mean Corpuscular HGB CONC 33.5 g/dL (32.0-36.0); Mean Corpuscular Hemoglobin 31.3 pg (27.0-31.0); Mean Corpuscular Volume 93.3 fl (80.0-94.0); Mean Platelet Volume 7.3 fL (7.4-10.4); Platelet Count 229 thou/uL (130-400); RBC Distribution Width 12.2 % (11.5-14.5); Red Blood Cell (RBC) Count 4.44 mill/uL (4.70-6.10); White Blood Cell (WBC) Count 7.4 thou/uL (4.8-10.8)
[2017-10-25 16:52] LABS: Amphetamine Not Detected (NotDetected); Barbiturates Screen Not Detected (NotDetected); Benzodiazepine Screen Not Detected (NotDetected); Cocaine Metabolite Screen Not Detected (NotDetected); Medtox Control Line Valid? VALID (VALID); Medtox Reader # READER 1; Methadone Not Detected (NotDetected); Methamphetamine Not Detected (NotDetected); Opiate Screen Not Detected (NotDetected); Oxycodone Screen Not Detected (NotDetected); Phencyclidine (PCP) Not Detected (NotDetected); THC/Cannabinoid Screen Not Detected (NotDetected); Tricyclic Screen Not Detected (NotDetected)
[2017-10-25 16:55] LABS: Lactic Acid 3.3 mmol/L (0.5-2.2)
[2017-10-25 17:02] LABS: ALT (SGPT) 57 U/L (8-55); AST (SGOT) 65 U/L (5-34); Alkaline Phosphatase 92 U/L (40-150); Anion Gap 16 mmol/L (10-20); BUN (Urea Nitrogen) 20 mg/dL (8.4-25.7); Bilirubin, Total 0.7 mg/dL (0.2-1.2); CK (CPK) 1783 U/L (30-200); Calc. Creatinine Clearance 0 mL/min (70-130); Calcium 9.5 mg/dL (7.8-10.44); Carbon Dioxide 22 mmol/L (22-29); Chloride 106 mmol/L (98-107); Estimated GFR-MDRD 79; Globulin 3.2 g/dL (2.4-3.5); Glucose 106 mg/dL (70-105); Protein, Total 7.2 g/dL (6.0-8.3); Sodium 140 mmol/L (136-145)
[2017-10-25 17:05] LABS: Troponin I Less than 0.010 ng/mL (< 0.028)
[2017-10-25 17:10] LABS: CKMB 9.1 ng/mL (0-6.6)
--- NOTE | 2017-10-25 17:28 | RAD ---
SINGLE VIEW OF THE CHEST: 10/25/17 COMPARISON: 10/06/17 HISTORY: Altered mental status with abdominal pain. FINDINGS: Single view of the chest shows a normal sized cardiomediastinal silhouette. There is no evidence of c onsolidation, mass, or pleural effusion. The bones are unremarkable. IMPRESSION: No evidence of acute cardiopulmonary disease. POS: [facility]
--- NOTE | 2017-10-25 17:34 | CT ---
CT OF THE BRAIN WITHOUT CONTRAST: 10/25/17 COMPARISON: None. HISTORY: Altered mental status. History of schizophrenia and bipolar disorder. TECHNIQUE: Multiple contiguous axial images were obtained in a CT of the brain without contrast. FINDINGS: The brain is normal in morphology and attenuation without focal lesions or confluent areas of infarct ion. There is no evidence of hydrocephalus, intracranial hemorrhage or extra-axial fluid collection. The calvarium and overlying soft tissues are unremarkable. The visualized paranasal sinuses and masto id air cells are well aerated. IMPRESSION: No evidence of acute intracranial abnormality. POS: [facility]
--- NOTE | 2017-10-25 17:36 | CT ---
CT OF THE ABDOMEN AND PELVIS WITH CONTRAST: 10/25/17 COMPARISON: None. HISTORY: Right sided abdominal pain. Patient has schizophrenic and bipolar disorder. TECHNIQUE: Multiple contiguous axial images were obtained in a CT of the abdomen and pelvis with contrast. Coron al reformats were performed. FINDINGS: There is a 4.4 cm cyst in the left kidney. The liver, gallbladder, right kidney, adrenal glands, sple en, and pancreas are unremarkable. No free air, free fluid or stranding changes are seen in the abdom en or pelvis. The large and small bowel are unremarkable. The appendix is normal. No abdominal or pelvic lymphadeno odin are seen. Degenerative changes are seen in the spine. The visualized inferior thorax and abdomi nal wall soft tissues are unremarkable. IMPRESSION: 1. No evidence of acute intra-abdominal/pelvic abnormality. 2. Left renal cyst. POS: [facility]
--- NOTE | 2017-10-25 23:24 | HP ---
PRIMARY CARE PHYSICIAN: [facility] call [facility]. REASON FOR ADMISSION: Transfer from [facility] for rhabdomyolysis. HISTORY OF PRESENT ILLNESS: A 57-year-old male who has underlying schizophrenia, who was re cently admitted in our hospital on 10/10/2017 and he was discharged to [facility] on 10/15/2017. During that admission, we treated him for rhabdomyolysis. Unfortunately, thi s patient is schizophrenic and he is talking irrelevantly and he is not able to provide any reliable history, so history from him is not obtained. At [facility], they checked total CK, it was elevated. In the emergency r oom, the patient was given IV fluid. The patient's renal function was normal. The patient was tried to send him back to [facility], but they refused to take him and that is why patient is being admitted in our hospital for observation. REVIEW OF SYSTEMS: All review of systems tried to review with the patient, but unable to review katie use of his cognitive status, underlying schizophrenia and he is completely unreliable. ALLERGIES: No known drug allergy. CURRENT HOME MEDICATIONS: Amlodipine 10 mg p.o. daily, glipizide 5 mg p.o. b.i.d., lisinopril 30 mg p.o. daily, metformin 1000 mg p.o. b.i.d., risperidone 0.5 mg twice daily, Plavix 75 mg p.o. daily, D epakote 250 mg p.o. b.i.d., Pepcid 20 mg twice daily, Remeron 15 mg p.o. daily, perphenazine 2 mg twi ce daily. PAST MEDICAL HISTORY: Chronic atrial fibrillation, hypertension, diabetes type 2. PAST PSYCHIATRIC HISTORY: Bipolar disorder, schizophrenia. PAST SURGICAL HISTORY: Appendicectomy, tonsillectomy. SOCIAL HISTORY: The patient is transferred from [facility]. No history o f tobacco, alcohol or illicit drug abuse. FAMILY HISTORY: No strong family history of premature coronary artery disease, stroke or cancer as p er our medical record. EMERGENCY ROOM COURSE: The patient has received IV fluid 3 liter. PHYSICAL EXAMINATION: VITAL SIGNS: On arrival, blood pressure 118/80, pulse 83 irregular, respiratory rate 17, temperature 99.3, saturation 99% on room air, weight 90.7 kilograms. GENERAL: The patient is currently awake, talking irrelevantly, confused, psychotic. HEAD: Normocephalic, atraumatic. EYES: Pupils are round, reactive to light. Extraocular muscle intact. ENT: Oropharynx within normal limits. Moist mucous membranes. No oral lesion, no pharyngeal erythe ma, no exudate. NECK: Supple, no JVD, no thyromegaly, no carotid bruit, no jugular venous distention. LUNGS: Clear to auscultation without any rhonchi or rales. CARDIAC: S1, S2 irregularly irregular. No murmur elicited, no gallop, no rub. ABDOMEN: Soft, bowel sounds present, nontender, nondistended. No organomegaly, no mass, no suprapub ic tenderness. BACK: Unremarkable, no CVA tenderness. EXTREMITIES: Upper extremity: Passive movement of all joints are normal. Lower extremity: Trace p edal edema noted. No calf tenderness. Good distal pulsation. SKIN: No skin rash. HEMATOLOGICAL SYSTEM: No lymphadenopathy. PSYCHIATRIC: The patient is psychotic at this point, talking irrelevantly and incoherently. NEUROLOGIC: No focal neurological deficit noted. He moves all 4 limbs. Detailed neurological exami nemours foundation is not possible because of uncooperativeness. SIGNIFICANT LABORATORY DATA: EKG showing atrial fibrillation with controlled ventricular response. CT brain based on my review, no acute intracranial process. CT of the abdomen and pelvis showed no e vidence of intra-abdominal process. Chest x-ray based on my review, no acute cardiopulmonary process . CBC: WBC 7.4, hemoglobin 13.9, platelet 229. BMP: Sodium 140, potassium 4.0, chloride 106, carb on dioxide 22, anion gap 16, BUN 20, creatinine 0.98, glucose 106, calcium 9.5. LFT: AST 65, ALT 57 , alkaline phosphatase 92, albumin 4.0. CK 1783, CK-MB 9.1, troponin I less than 0.010. Ammonia lev el 40. Lactic acid 3.3 and then 1.8. Urinalysis unremarkable. Urine drug screen negative. ASSESSMENT AND PLAN: IMPRESSION: 1. Rhabdomyolysis. Looking at his old record, the patient has fluctuating level of total CK, suspec ting from his psychiatric medication, contributing to elevated total CK. The patient's renal functio n is normal. The patient has received IV fluid. The patient is currently asymptomatic from this per spective and because of total CK elevated and that is why suspecting his LFT abnormal as well as CK-M B is elevated. 2. Chronic atrial fibrillation, rate controlled. The patient is not a candidate for chronic anticoa gulation therapy because of his cognitive status. He will benefit from only aspirin therapy and his CHADS2 score is also very low. 3. Diabetes, type 2. We will continue glipizide 5 mg p.o. b.i.d., metformin 1000 mg p.o. b.i.d. and insulin as per sliding scale per protocol. 4. Hypertension. We will continue lisinopril 30 mg p.o. daily, amlodipine 10 mg p.o. daily. 5. Anxiety, depression, and bipolar disorder. At this point, we will continue patient medication, D epakote 250 mg twice daily, risperidone 0.5 mg twice daily and perphenazine 2 mg twice daily, and Rem loyda 15 mg p.o. daily. 6. Obesity. Dietary education given. 7. Lactic acidosis, may be related with metformin, but currently is improved. He does not have any source of infection. 8. Transaminitis, likely related with rhabdomyolysis. We will check his hepatitis profile tomorrow morning. 9. Deep venous thrombosis prophylaxis, Lovenox 40 mg subcu daily. 10. Gastrointestinal prophylaxis, Pepcid 20 mg p.o. b.i.d. 11. Code status: The patient is FULL CODE. The patient does not have any surrogate decision maker. Disposition plan based on clinical course. The patient will need [facility] evaluation and again psychiatr ic placement.
[2017-10-26] MEDS ORDERED: Sodium Chloride 0.45% 1,000 ML IV SCH (00:15)
[2017-10-26] MEDS ORDERED: Loperamide HCl 2 MG CAP PO PRN (00:29)
[2017-10-26] MEDS ORDERED: HumaLOG 300 UNITS/3 ML VIAL SC PRN ×2 (00:29)
[2017-10-26] MEDS ORDERED: Mag-Al 1200 mg/1200 mg/30 ML UDCUP PO PRN (00:29)
[2017-10-26] MEDS ORDERED: Milk Of Magnesia 30 ML UDCUP PO PRN ×2 (00:29→11:13)
[2017-10-26] MEDS ORDERED: Senokot 8.6 MG TAB PO PRN (00:29)
[2017-10-26] MEDS ORDERED: Dextrose 50% Abboject 50 ML SYRINGE SLOW IVP PRN (00:29)
[2017-10-26] MEDS ORDERED: Dextrose 5% in Water 1,000 ML IV PRN (00:29)
[2017-10-26] MEDS ORDERED: HYDROcodone/Acetaminophen 5/325 mg Tablet PO PRN (00:29)
[2017-10-26] MEDS ORDERED: Ondansetron ODT 4 MG TAB PO PRN (00:29)
[2017-10-26] MEDS ORDERED: Ondansetron HCl/PF 4 MG/2 ML Vial IVP PRN (00:29)
[2017-10-26] MEDS ORDERED: Zolpidem Tartrate 5 MG TAB PO PRN (00:29)
[2017-10-26] MEDS: Sodium Chloride 0.9% 1,000 ML IV SCH ×2 (01:39→14:59)
[2017-10-26 05:13] LABS: #Basophils 0.1 thou/uL (0.0-0.2); #Eosinphils 0.2 thou/uL (0.0-0.7); #Lymphocytes 3.1 thou/uL (1.20-3.40); #Monocytes 0.6 thou/uL (0.11-0.59); %Basophils 1.2 % (0.0-1.0); %Eosinophils 3.1 % (0.0-10.0); %Lymphocytes 44.2 % (21.0-51.0); %Monocytes 8.3 % (0.0-10.0); %Neutrophils 43.2 % (42.0-75.0); Hemoglobin 14.1 g/dL (14.0-18.0); Mean Corpuscular HGB CONC 33.5 g/dL (32.0-36.0); Mean Corpuscular Hemoglobin 30.6 pg (27.0-31.0); Mean Corpuscular Volume 91.2 fl (80.0-94.0); Mean Platelet Volume 6.9 fL (7.4-10.4); Platelet Count 213 thou/uL (130-400); Red Blood Cell (RBC) Count 4.61 mill/uL (4.70-6.10); White Blood Cell (WBC) Count 6.9 thou/uL (4.8-10.8)
[2017-10-26 05:45] LABS: ALT (SGPT) 57 U/L (8-55); AST (SGOT) 62 U/L (5-34); Albumin 3.9 g/dL (3.5-5.0); Alkaline Phosphatase 87 U/L (40-150); Anion Gap 11 mmol/L (10-20); BUN (Urea Nitrogen) 14 mg/dL (8.4-25.7); Bilirubin, Total 1.2 mg/dL (0.2-1.2); CK (CPK) 1495 U/L (30-200); Calc. Creatinine Clearance 125 mL/min (70-130); Calcium 9.1 mg/dL (7.8-10.44); Carbon Dioxide 27 mmol/L (22-29); Chloride 106 mmol/L (98-107); Estimated GFR-MDRD Greater than 90; Globulin 3.3 g/dL (2.4-3.5); Glucose 90 mg/dL (70-105); Potassium 3.8 mmol/L (3.5-5.1); Protein, Total 7.2 g/dL (6.0-8.3); Sodium 140 mmol/L (136-145)
[2017-10-26 05:48] LABS: HBCM Index 0.08 S/CO (0-0.79); HBSAg Index 0.19 S/CO (0-0.99); Hep A IgM AB Non-Reactive (NonReactive); Hep A IgM S/CO 0.13 S/CO (0-0.79); Hep B Surf Ag Non-Reactive S/CO (NonReactive); Hep C IgG Ab Non-Reactive (NonReactive); Hepatitis B Core IGM Abs Non-Reactive (NonReactive)
[2017-10-26] MEDS: Acetaminophen 325 MG TAB PO PRN (09:21)
[2017-10-26] MEDS: Famotidine 20 MG TAB PO SCH (09:21)
[2017-10-26] MEDS: Enoxaparin Sodium 40 MG/0.4 ML SYRINGE SC SCH (09:21)
[2017-10-26] MEDS ORDERED: Mag-Al Plus 1200 MG/1200 MG/120 MG/30 ML UDCUP PO PRN (11:13)
[2017-10-26] MEDS ORDERED: Docusate 100 MG CAP PO PRN (11:13)
[2017-10-26] MEDS ORDERED: hydrOXYzine Pamoate 25 mg Capsule PO PRN (11:13)
[2017-10-26] MEDS ORDERED: Acetaminophen ER (8hr) 650 MG TAB PO PRN ×2 (11:13)
[2017-10-26] MEDS ORDERED: cloNIDine 0.1 MG TAB PO PRN (11:13)
--- NOTE | 2017-10-26 11:18 | PDOC.PN ---
- Subjective Encounter Start Date: 10/26/17 Encounter Start Time: 07:40 Pt seen for followup re: rhabdomyolysis. Mumbling, unable to answer questions, unable to complete ROS. - Objective Resuscitation Status: Resuscitation Status FULL:Full Resuscitation MAR Reviewed: Yes Vital Signs & Weight: Vital Signs (12 hours) Temp Pulse Resp BP Pulse Ox 10/26/17 04:00 98.1 F 73 17 103/65 96 10/26/17 02:49 99 I&O: 10/25/17 10/26/17 10/27/17 06:59 06:59 06:59 Intake Total 375 Output Total 300 Balance 75 Result Diagrams: 10/26/17 04:53 10/26/17 04:53 Additional Labs: Accuchecks 10/26/17 06:27 POC Glucose 95 EKG Reviewed by me: Yes (Tele: marlen steve) Phys Exam - Physical Examination Obese HEENT: PERRLA, moist MMs, sclera anicteric, oral pharynx no lesions Neck: no nodes, no JVD, supple, full ROM Respiratory: no wheezing, no rales, no rhonchi, clear to auscultation bilateral Cardiovascular: no rub, irregular Gastrointestinal: soft, non-tender, no distention, positive bowel sounds Neurological: moves all 4 limbs Psychiatric: normal affect Dx/Plan (1) Rhabdomyolysis Code(s): M62.82 - RHABDOMYOLYSIS Status: Acute Comment: Continue IV fluids, follow CK levels. Etiology unclear at this time. (2) Diabetes type 2, controlled Code(s): E11.9 - TYPE 2 DIABETES MELLITUS WITHOUT COMPLICATIONS Status: Chronic Comment: On accuchecks, insulin sliding scale (3) Hypertension Code(s): I10 - ESSENTIAL (PRIMARY) HYPERTENSION Status: Chronic Comment: Monitor vital signs, titrate antihypertensives as needed. (4) Obesity (BMI 30-39.9) Code(s): E66.9 - OBESITY, UNSPECIFIED Status: Chronic Comment: stable (5) Paroxysmal atrial fibrillation Code(s): I48.0 - PAROXYSMAL ATRIAL FIBRILLATION Status: Chronic Comment: Rate-controlled. (6) Bipolar disorder Code(s): F31.9 - BIPOLAR DISORDER, UNSPECIFIED Status: Chronic Comment: Resume home medications - Plan * . Discontinue monitoring specialist, transfer to medical floor. Review of Systems - Medications/Allergies Allergies/Adverse Reactions: Allergies Allergy/AdvReac Type Severity Reaction Status Date / Time No Known Drug Allergies Allergy Verified 03/07/15 00:36 Medications: Current Medications Acetaminophen (Tylenol) 650 mg PO Q4H PRN PRN Reason: Headache/Fever or Pain Last Admin: 10/26/17 09:21 Dose: 650 mg Acetaminophen (Tylenol Er (8hr Arthritis Pain)) 650 mg PO Q4H PRN PRN Reason: Pain Hydrocodone Bitart/Acetaminophen ([place] 5/325) 1 tab PO Q4H PRN PRN Reason: Moderate Pain (4-6) Al Hydroxide/Mg Hydroxide (Maalox) 30 ml PO Q6H PRN PRN Reason: Heartburn or Indigestion Al Hydroxide/Mg Hydroxide (Maalox Plus) 30 ml PO Q4HR PRN PRN Reason: GI Upset Amlodipine Besylate (Norvasc) 10 mg PO DAILY [facility] Clonidine (Catapres) 0.1 mg PO TID PRN PRN Reason: Hypertension Clopidogrel Bisulfate (Plavix) 75 mg PO DAILY [facility] Dextrose/Water (Dextrose 50%) 25 gm SLOW IVP PRN PRN PRN Reason: Hypoglycemia Divalproex Sodium (Depakote Er) 500 mg PO HS [facility] Divalproex Sodium (Depakote Er) 250 mg PO DAILY [facility] Docusate Sodium (Colace) 100 mg PO DAILY PRN PRN Reason: Constipation Enoxaparin Sodium (Lovenox) 40 mg SC 0900 [facility] Last Admin: 10/26/17 09:21 Dose: 40 mg Famotidine (Pepcid) 20 mg PO BID [facility] Last Admin: 10/26/17 09:21 Dose: 20 mg Famotidine (Pepcid) 20 mg PO BID [facility] Fluoxetine HCl (Prozac) 10 mg PO DAILY [facility] Glipizide (Glucotrol) 5 mg PO DAILY [facility] Glucagon (Glucagon) 1 mg IM PRN PRN PRN Reason: Hypoglycemia Hydroxyzine Pamoate (Vistaril) 50 mg PO HS PRN PRN Reason: Insomnia Dextrose/Water (D5w) 1,000 mls @ 0 mls/hr IV .Q0M PRN; As Directed PRN Reason: Hypoglycemia Sodium Chloride (Normal Saline 0.9%) 1,000 mls @ 75 mls/hr IV .[id number] [facility] Last Admin: 10/26/17 01:39 Dose: 1,000 mls Insulin Human Lispro (Humalog) 0 units SC .MODERATE SLIDING SC PRN PRN Reason: Moderate Correctional Scale Insulin Human Lispro (Humalog) 0 units SC .BEDTIME SLIDING SC PRN PRN Reason: Bedtime Correctional Scale Lisinopril (Zestril) 30 mg PO DAILY [facility] Loperamide HCl (Imodium) 2 mg PO PRN PRN PRN Reason: Diarrhea/Loose Stools Loratadine (Claritin) 10 mg PO DAILY [facility] Magnesium Hydroxide (Milk Of Magnesium) 30 ml PO DAILYPRN PRN PRN Reason: Constipation Magnesium Hydroxide (Milk Of Magnesium) 30 ml PO Q4H PRN PRN Reason: Constipation Metformin HCl (Glucophage) 1,000 mg PO BID [facility] Mirtazapine (Remeron) 15 mg PO HS [facility] Non-Formulary Medication (Risperidone [Risperdal]) 0.5 mg PO DAILY [facility] Ondansetron HCl (Zofran Odt) 4 mg PO Q6H PRN PRN Reason: Nausea/Vomiting Ondansetron HCl (Zofran) 4 mg IVP Q6H PRN PRN Reason: Nausea/Vomiting Perphenazine (Trilafon) 2 mg PO BID [facility] Risperidone (Risperidone) 1 mg PO HS [facility] Senna (Senokot) 2 tab PO HSPRN PRN PRN Reason: Constipation Sodium Chloride (Flush - Normal Saline) 10 ml IVF PRN PRN PRN Reason: Saline Flush Zolpidem Tartrate (Ambien) 5 mg PO HSPRN PRN PRN Reason: Insomnia
[2017-10-26] MEDS ORDERED: Lorazepam 0.5 MG TAB PO SCH (14:30)
[2017-10-26] MEDS ORDERED: risperiDONE 1 MG TAB PO SCH (14:30)
[2017-10-26] MEDS ORDERED: Perphenazine 2 MG TAB PO SCH (14:30)
[2017-10-26] MEDS ORDERED: FLUoxetine HCl 10 MG CAP PO SCH (14:30)
[2017-10-26] MEDS ORDERED: Famotidine 20 MG TAB PO SCH (21:00)
[2017-10-26] MEDS: metFORMIN 500 MG TAB PO SCH (21:51)
[2017-10-26] MEDS: risperiDONE 1 MG TAB PO SCH (21:52)
[2017-10-26] MEDS: Mirtazapine 15 MG TAB PO SCH (21:52)
[2017-10-26] MEDS: Perphenazine 2 MG TAB PO SCH (22:14)
[2017-10-27] MEDS: Famotidine 20 MG TAB PO SCH ×3 (04:03→21:06)
[2017-10-27] MEDS: Sodium Chloride 0.9% 1,000 ML IV SCH ×2 (04:45→18:49)
[2017-10-27 05:23] LABS: #Basophils 0.1 thou/uL (0.0-0.2); #Eosinphils 0.2 thou/uL (0.0-0.7); #Lymphocytes 2.9 thou/uL (1.20-3.40); #Monocytes 0.5 thou/uL (0.11-0.59); #Neutrophils 2.3 thou/uL (1.40-6.50); %Basophils 1.1 % (0.0-1.0); %Eosinophils 3.9 % (0.0-10.0); %Lymphocytes 48.3 % (21.0-51.0); %Monocytes 8.1 % (0.0-10.0); %Neutrophils 38.5 % (42.0-75.0); Hemoglobin 14.5 g/dL (14.0-18.0); Mean Corpuscular Hemoglobin 30.7 pg (27.0-31.0); Mean Corpuscular Volume 93.1 fl (80.0-94.0); Mean Platelet Volume 7.4 fL (7.4-10.4); Platelet Count 224 thou/uL (130-400); RBC Distribution Width 11.9 % (11.5-14.5); Red Blood Cell (RBC) Count 4.71 mill/uL (4.70-6.10)
[2017-10-27 05:57] LABS: Anion Gap 16 mmol/L (10-20); BUN (Urea Nitrogen) 13 mg/dL (8.4-25.7); CK (CPK) 876 U/L (30-200); Calc. Creatinine Clearance 114 mL/min (70-130); Calcium 9.1 mg/dL (7.8-10.44); Carbon Dioxide 20 mmol/L (22-29); Chloride 107 mmol/L (98-107); Estimated GFR-MDRD 86; Glucose 97 mg/dL (70-105); Potassium 4.1 mmol/L (3.5-5.1); Sodium 139 mmol/L (136-145)
[2017-10-27] MEDS: risperiDONE 1 MG TAB PO SCH ×2 (08:52→21:07)
[2017-10-27] MEDS: Amlodipine 10 MG TAB PO SCH (08:53)
[2017-10-27] MEDS: Loratadine 10 MG TAB PO SCH (08:53)
[2017-10-27] MEDS: Clopidogrel Bisulfate 75 MG TAB PO SCH (08:53)
[2017-10-27] MEDS: metFORMIN 500 MG TAB PO SCH ×2 (08:53→21:06)
[2017-10-27] MEDS: Lisinopril 20 MG TAB PO SCH (08:54)
[2017-10-27] MEDS: FLUoxetine HCl 10 MG CAP PO SCH (08:54)
[2017-10-27] MEDS: glipiZIDE 5 MG TAB PO SCH (08:54)
[2017-10-27] MEDS: Perphenazine 2 MG TAB PO SCH ×2 (11:13→21:07)
[2017-10-27] MEDS: Enoxaparin Sodium 40 MG/0.4 ML SYRINGE SC SCH (11:13)
[2017-10-27 13:45] LABS: Troponin I Less than 0.010 ng/mL (< 0.028)
--- NOTE | 2017-10-27 14:55 | PDOC.PN ---
- Subjective Encounter Start Date: 10/27/17 Encounter Start Time: 14:54 Pt seen for followup re: rhabdomyolysis. Denies any chest pain or shortness of breath at this time, but reportedly had chest discomfort earlier per nursing staff. Otherwise, pt is mumbling, unable to complete ROS. - Objective Resuscitation Status: Resuscitation Status FULL:Full Resuscitation MAR Reviewed: Yes Vital Signs & Weight: Vital Signs (12 hours) Temp Pulse Resp BP Pulse Ox 10/27/17 11:20 98.5 F 94 18 146/89 H 94 L 10/27/17 08:40 98.5 F 75 18 146/97 H 94 L 10/27/17 03:51 98.4 F 79 16 162/110 H 93 L Weight Admit Weight 199 lb 3.2 oz Weight 199 lb 3.2 oz I&O: 10/26/17 10/27/17 10/28/17 06:59 06:59 06:59 Intake Total 375 3520 Output Total 300 2300 Balance 75 1220 Result Diagrams: 10/27/17 05:01 10/27/17 05:01 Additional Labs: Accuchecks 10/27/17 10/27/17 10/27/17 12:53 11:45 05:43 POC Glucose 107 57 L* 98 10/26/17 10/26/17 20:13 16:43 POC Glucose 125 H 85 EKG Reviewed by me: Yes (Tele: a. fib; 12 lead EKG: a. fib, no ST elevations) Phys Exam - Physical Examination Obese HEENT: PERRLA, moist MMs, sclera anicteric, oral pharynx no lesions Neck: no nodes, no JVD, supple, full ROM Respiratory: no wheezing, no rales, no rhonchi, clear to auscultation bilateral Cardiovascular: no rub, irregular Gastrointestinal: soft, non-tender, no distention, positive bowel sounds Musculoskeletal: pulses present Neurological: moves all 4 limbs Lymphatic: no nodes Psychiatric: normal affect Skin: no rash Dx/Plan (1) Rhabdomyolysis Code(s): M62.82 - RHABDOMYOLYSIS Status: Acute Comment: Continue IV fluids, CK improving. (2) Chest pain Code(s): R07.9 - CHEST PAIN, UNSPECIFIED Status: Acute Comment: Pt denies chest pain at this time. Trend troponins to r/o ACS. (3) Diabetes type 2, controlled Code(s): E11.9 - TYPE 2 DIABETES MELLITUS WITHOUT COMPLICATIONS Status: Chronic Comment: continue accuchecks, insulin sliding scale (4) Hypertension Code(s): I10 - ESSENTIAL (PRIMARY) HYPERTENSION Status: Chronic Comment: titrate antihypertensives as needed. (5) Obesity (BMI 30-39.9) Code(s): E66.9 - OBESITY, UNSPECIFIED Status: Chronic Comment: stable (6) Paroxysmal atrial fibrillation Code(s): I48.0 - PAROXYSMAL ATRIAL FIBRILLATION Status: Chronic Comment: Rate-controlled. (7) Bipolar disorder Code(s): F31.9 - BIPOLAR DISORDER, UNSPECIFIED Status: Chronic Comment: Resume home medications - Plan * . Review of Systems - Medications/Allergies Allergies/Adverse Reactions: Allergies Allergy/AdvReac Type Severity Reaction Status Date / Time No Known Drug Allergies Allergy Verified 03/07/15 00:36 Medications: Current Medications Acetaminophen (Tylenol) 650 mg PO Q4H PRN PRN Reason: Headache/Fever or Pain Last Admin: 10/26/17 09:21 Dose: 650 mg Hydrocodone Bitart/Acetaminophen ([place] 5/325) 1 tab PO Q4H PRN PRN Reason: Moderate Pain (4-6) Al Hydroxide/Mg Hydroxide (Maalox) 30 ml PO Q6H PRN PRN Reason: Heartburn or Indigestion Al Hydroxide/Mg Hydroxide (Maalox Plus) 30 ml PO Q4HR PRN PRN Reason: GI Upset Amlodipine Besylate (Norvasc) 10 mg PO DAILY [facility] Last Admin: 10/27/17 08:53 Dose: 10 mg Clonidine (Catapres) 0.1 mg PO TID PRN PRN Reason: Hypertension Clopidogrel Bisulfate (Plavix) 75 mg PO DAILY [facility] Last Admin: 10/27/17 08:53 Dose: 75 mg Dextrose/Water (Dextrose 50%) 25 gm SLOW IVP PRN PRN PRN Reason: Hypoglycemia Divalproex Sodium (Depakote Er) 500 mg PO HS [facility] Last Admin: 10/26/17 21:51 Dose: 500 mg Divalproex Sodium (Depakote Er) 250 mg PO DAILY [facility] Last Admin: 10/27/17 08:53 Dose: 250 mg Docusate Sodium (Colace) 100 mg PO DAILY PRN PRN Reason: Constipation Last Admin: 10/26/17 21:52 Dose: 100 mg Enoxaparin Sodium (Lovenox) 40 mg SC 0900 [facility] Last Admin: 10/27/17 11:13 Dose: 40 mg Famotidine (Pepcid) 20 mg PO BID [facility] Last Admin: 10/27/17 08:54 Dose: 20 mg Fluoxetine HCl (Prozac) 10 mg PO DAILY [facility] Last Admin: 10/27/17 08:54 Dose: 10 mg Glipizide (Glucotrol) 5 mg PO DAILY [facility] Last Admin: 10/27/17 08:54 Dose: 5 mg Glucagon (Glucagon) 1 mg IM PRN PRN PRN Reason: Hypoglycemia Hydroxyzine Pamoate (Vistaril) 50 mg PO HS PRN PRN Reason: Insomnia Dextrose/Water (D5w) 1,000 mls @ 0 mls/hr IV .Q0M PRN; As Directed PRN Reason: Hypoglycemia Sodium Chloride (Normal Saline 0.9%) 1,000 mls @ 75 mls/hr IV .[id number] [facility] Last Admin: 10/27/17 04:45 Dose: 1,000 mls Insulin Human Lispro (Humalog) 0 units SC .MODERATE SLIDING SC PRN PRN Reason: Moderate Correctional Scale Insulin Human Lispro (Humalog) 0 units SC .BEDTIME SLIDING SC PRN PRN Reason: Bedtime Correctional Scale Lisinopril (Zestril) 30 mg PO DAILY [facility] Last Admin: 10/27/17 08:54 Dose: 30 mg Loperamide HCl (Imodium) 2 mg PO PRN PRN PRN Reason: Diarrhea/Loose Stools Loratadine (Claritin) 10 mg PO DAILY [facility] Last Admin: 10/27/17 08:53 Dose: 10 mg Magnesium Hydroxide (Milk Of Magnesium) 30 ml PO Q4H PRN PRN Reason: Constipation Metformin HCl (Glucophage) 1,000 mg PO BID [facility] Last Admin: 10/27/17 08:53 Dose: 1,000 mg Mirtazapine (Remeron) 15 mg PO HS [facility] Last Admin: 10/26/17 21:52 Dose: 15 mg Ondansetron HCl (Zofran Odt) 4 mg PO Q6H PRN PRN Reason: Nausea/Vomiting Ondansetron HCl (Zofran) 4 mg IVP Q6H PRN PRN Reason: Nausea/Vomiting Perphenazine (Trilafon) 2 mg PO BID [facility] Last Admin: 10/27/17 11:13 Dose: 2 mg Risperidone (Risperidone) 0.5 mg PO DAILY [facility] Last Admin: 10/27/17 08:52 Dose: 0.5 mg Risperidone (Risperidone) 1 mg PO HS [facility] Last Admin: 10/26/17 21:52 Dose: 1 mg Senna (Senokot) 2 tab PO HSPRN PRN PRN Reason: Constipation Sodium Chloride (Flush - Normal Saline) 10 ml IVF PRN PRN PRN Reason: Saline Flush Zolpidem Tartrate (Ambien) 5 mg PO HSPRN PRN PRN Reason: Insomnia Last Admin: 10/26/17 21:52 Dose: 5 mg
[2017-10-27 17:38] LABS: CKMB 2.5 ng/mL (0-6.6); Troponin I Less than 0.010 ng/mL (< 0.028)
[2017-10-27] MEDS: Mirtazapine 15 MG TAB PO SCH (21:07)
[2017-10-27] MEDS: Acetaminophen 325 MG TAB PO PRN (21:08)
[2017-10-28 05:16] LABS: #Eosinphils 0.3 thou/uL (0.0-0.7); #Lymphocytes 2.8 thou/uL (1.20-3.40); #Monocytes 0.6 thou/uL (0.11-0.59); #Neutrophils 2.9 thou/uL (1.40-6.50); %Basophils 0.5 % (0.0-1.0); %Eosinophils 4.5 % (0.0-10.0); %Lymphocytes 42.1 % (21.0-51.0); %Monocytes 9.4 % (0.0-10.0); %Neutrophils 43.5 % (42.0-75.0); Hemoglobin 14.6 g/dL (14.0-18.0); Mean Corpuscular HGB CONC 33.3 g/dL (32.0-36.0); Mean Corpuscular Hemoglobin 30.1 pg (27.0-31.0); Mean Corpuscular Volume 90.6 fl (80.0-94.0); Mean Platelet Volume 7.3 fL (7.4-10.4); Platelet Count 237 thou/uL (130-400); RBC Distribution Width 12.1 % (11.5-14.5); Red Blood Cell (RBC) Count 4.84 mill/uL (4.70-6.10); White Blood Cell (WBC) Count 6.6 thou/uL (4.8-10.8)
[2017-10-28 05:50] LABS: Anion Gap 13 mmol/L (10-20); BUN (Urea Nitrogen) 13 mg/dL (8.4-25.7); CK (CPK) 535 U/L (30-200); Calc. Creatinine Clearance 116 mL/min (70-130); Carbon Dioxide 22 mmol/L (22-29); Chloride 107 mmol/L (98-107); Critical Call Chemistry 2NO.HSS@550; Estimated GFR-MDRD 87; Glucose 104 mg/dL (70-105); Potassium 3.9 mmol/L (3.5-5.1); Sodium 138 mmol/L (136-145)
[2017-10-28 06:37] LABS: Calcium 9.8 mg/dL (7.8-10.44)
[2017-10-28] MEDS: Sodium Chloride 0.9% 1,000 ML IV SCH ×2 (08:25→19:10)
[2017-10-28] MEDS: Lisinopril 20 MG TAB PO SCH (09:22)
[2017-10-28] MEDS: Enoxaparin Sodium 40 MG/0.4 ML SYRINGE SC SCH (09:22)
[2017-10-28] MEDS: Clopidogrel Bisulfate 75 MG TAB PO SCH (09:22)
[2017-10-28] MEDS: metFORMIN 500 MG TAB PO SCH ×2 (09:22→22:15)
[2017-10-28] MEDS: risperiDONE 1 MG TAB PO SCH ×2 (09:23→22:16)
[2017-10-28] MEDS: FLUoxetine HCl 10 MG CAP PO SCH (09:23)
[2017-10-28] MEDS: Loratadine 10 MG TAB PO SCH (09:23)
[2017-10-28] MEDS: Amlodipine 10 MG TAB PO SCH (09:23)
[2017-10-28] MEDS: glipiZIDE 5 MG TAB PO SCH (09:23)
[2017-10-28] MEDS: Famotidine 20 MG TAB PO SCH ×2 (09:24→22:14)
[2017-10-28] MEDS: Perphenazine 2 MG TAB PO SCH ×2 (09:24→22:16)
--- NOTE | 2017-10-28 14:30 | PDOC.PN ---
- Subjective Encounter Start Date: 10/28/17 Encounter Start Time: 07:40 Pt seen for followup re: rhabdomyolysis. Mumbling, unable to complete ROS. He does deny having any chest pain. - Objective Resuscitation Status: Resuscitation Status FULL:Full Resuscitation MAR Reviewed: Yes Vital Signs & Weight: Vital Signs (12 hours) Temp Pulse Resp BP BP Pulse Ox 10/28/17 12:03 98.4 F 75 18 138/82 95 10/28/17 08:55 99.0 F 84 16 137/77 94 L 10/28/17 08:10 99.0 F 84 16 10/28/17 04:30 97.6 F 74 18 141/88 H 93 L Weight Admit Weight 199 lb 3.2 oz Weight 205 lb 5 oz I&O: 10/27/17 10/28/17 10/29/17 06:59 06:59 06:59 Intake Total 3520 2460 472 Output Total 2300 850 Balance 1220 2460 -378 Result Diagrams: 10/28/17 04:42 10/28/17 04:42 Additional Labs: Accuchecks 10/28/17 10/28/17 10/27/17 10:16 05:55 20:40 POC Glucose 135 H 112 H 114 H 10/27/17 16:50 POC Glucose 90 EKG Reviewed by me: Yes (Tele: marlen steve) Phys Exam - Physical Examination Constitutional: NAD HEENT: PERRLA, moist MMs, sclera anicteric, oral pharynx no lesions Neck: no nodes, no JVD, supple, full ROM Respiratory: no wheezing, no rales, no rhonchi, clear to auscultation bilateral Cardiovascular: no rub, irregular Gastrointestinal: soft, non-tender, no distention, positive bowel sounds Neurological: moves all 4 limbs Psychiatric: normal affect Dx/Plan (1) Rhabdomyolysis Code(s): M62.82 - RHABDOMYOLYSIS Status: Acute Comment: CK improving. Continue IV fluids for now until discharge. (2) Diabetes type 2, controlled Code(s): E11.9 - TYPE 2 DIABETES MELLITUS WITHOUT COMPLICATIONS Status: Chronic Comment: continue accuchecks, insulin sliding scale (3) Hypertension Code(s): I10 - ESSENTIAL (PRIMARY) HYPERTENSION Status: Chronic Comment: Monitor vital signs and titrate antihypertensives as needed. Controlled at this time. (4) Obesity (BMI 30-39.9) Code(s): E66.9 - OBESITY, UNSPECIFIED Status: Chronic Comment: stable (5) Paroxysmal atrial fibrillation Code(s): I48.0 - PAROXYSMAL ATRIAL FIBRILLATION Status: Chronic Comment: Rate-controlled. (6) Bipolar disorder Code(s): F31.9 - BIPOLAR DISORDER, UNSPECIFIED Status: Chronic Comment: home medications resumed (7) Chest pain Code(s): R07.9 - CHEST PAIN, UNSPECIFIED Status: Resolved Comment: Pt denies chest pain. - Plan * . Pt medically cleared for discharge. Await [facility] input. Review of Systems - Medications/Allergies Allergies/Adverse Reactions: Allergies Allergy/AdvReac Type Severity Reaction Status Date / Time No Known Drug Allergies Allergy Verified 03/07/15 00:36 Medications: Current Medications Acetaminophen (Tylenol) 650 mg PO Q4H PRN PRN Reason: Headache/Fever or Pain Last Admin: 10/27/17 21:08 Dose: 650 mg Hydrocodone Bitart/Acetaminophen ([place] 5/325) 1 tab PO Q4H PRN PRN Reason: Moderate Pain (4-6) Al Hydroxide/Mg Hydroxide (Maalox) 30 ml PO Q6H PRN PRN Reason: Heartburn or Indigestion Al Hydroxide/Mg Hydroxide (Maalox Plus) 30 ml PO Q4HR PRN PRN Reason: GI Upset Amlodipine Besylate (Norvasc) [address] [facility] Last Admin: 10/28/17 09:23 Dose: 10 mg Clonidine (Catapres) 0.1 mg PO TID PRN PRN Reason: Hypertension Clopidogrel Bisulfate (Plavix) [address] [facility] Last Admin: 10/28/17 09:22 Dose: 75 mg Dextrose/Water (Dextrose 50%) 25 gm SLOW IVP PRN PRN PRN Reason: Hypoglycemia Divalproex Sodium (Depakote Er) [address] [facility] Last Admin: 10/27/17 21:06 Dose: 500 mg Divalproex Sodium (Depakote Er) [address] [facility] Last Admin: 10/28/17 09:24 Dose: 250 mg Docusate Sodium (Colace) 100 mg PO DAILY PRN PRN Reason: Constipation Last Admin: 10/26/17 21:52 Dose: 100 mg Enoxaparin Sodium (Lovenox) [address] [facility] Last Admin: 10/28/17 09:22 Dose: 40 mg Famotidine (Pepcid) [address] [facility] Last Admin: 10/28/17 09:24 Dose: 20 mg Fluoxetine HCl (Prozac) [address] [facility] Last Admin: 10/28/17 09:23 Dose: 10 mg Glipizide (Glucotrol) [address] [facility] Last Admin: 10/28/17 09:23 Dose: 5 mg Glucagon (Glucagon) 1 mg IM PRN PRN PRN Reason: Hypoglycemia Hydroxyzine Pamoate (Vistaril) 50 mg PO HS PRN PRN Reason: Insomnia Dextrose/Water (D5w) 1,000 mls @ 0 mls/hr IV .Q0M PRN; As Directed PRN Reason: Hypoglycemia Sodium Chloride (Normal Saline 0.9%) 1,000 mls @ 75 mls/hr IV .[id number] [facility] Last Admin: 10/28/17 08:25 Dose: Not Given Insulin Human Lispro (Humalog) 0 units SC .MODERATE SLIDING SC PRN PRN Reason: Moderate Correctional Scale Insulin Human Lispro (Humalog) 0 units SC .BEDTIME SLIDING SC PRN PRN Reason: Bedtime Correctional Scale Lisinopril (Zestril) [address] [facility] Last Admin: 10/28/17 09:22 Dose: 30 mg Loperamide HCl (Imodium) 2 mg PO PRN PRN PRN Reason: Diarrhea/Loose Stools Loratadine (Claritin) [address] [facility] Last Admin: 10/28/17 09:23 Dose: 10 mg Magnesium Hydroxide (Milk Of Magnesium) 30 ml PO Q4H PRN PRN Reason: Constipation Metformin HCl (Glucophage) 1,[address] [facility] Last Admin: 10/28/17 09:22 Dose: 1,000 mg Mirtazapine (Remeron) [address] [facility] Last Admin: 10/27/17 21:07 Dose: 15 mg Ondansetron HCl (Zofran Odt) 4 mg PO Q6H PRN PRN Reason: Nausea/Vomiting Ondansetron HCl (Zofran) 4 mg IVP Q6H PRN PRN Reason: Nausea/Vomiting Perphenazine (Trilafon) [address] [facility] Last Admin: 10/28/17 09:24 Dose: 2 mg Risperidone (Risperidone) 0.5 mg PO DAILY [facility] Last Admin: 10/28/17 09:23 Dose: 0.5 mg Risperidone (Risperidone) [address] [facility] Last Admin: 10/27/17 21:07 Dose: 1 mg Senna (Senokot) 2 tab PO HSPRN PRN PRN Reason: Constipation Sodium Chloride (Flush - Normal Saline) 10 ml IVF PRN PRN PRN Reason: Saline Flush Zolpidem Tartrate (Ambien) 5 mg PO HSPRN PRN PRN Reason: Insomnia Last Admin: 10/26/17 21:52 Dose: 5 mg
[2017-10-28] MEDS: Mirtazapine 15 MG TAB PO SCH (22:15)
[2017-10-29 04:59] LABS: #Basophils 0.1 thou/uL (0.0-0.2); #Eosinphils 0.3 thou/uL (0.0-0.7); #Lymphocytes 2.7 thou/uL (1.20-3.40); #Monocytes 0.7 thou/uL (0.11-0.59); #Neutrophils 3.9 thou/uL (1.40-6.50); %Basophils 0.7 % (0.0-1.0); %Eosinophils 3.7 % (0.0-10.0); %Lymphocytes 35.5 % (21.0-51.0); %Monocytes 8.9 % (0.0-10.0); %Neutrophils 51.2 % (42.0-75.0); Hemoglobin 14.2 g/dL (14.0-18.0); Mean Corpuscular HGB CONC 33.2 g/dL (32.0-36.0); Mean Corpuscular Hemoglobin 30.1 pg (27.0-31.0); Mean Corpuscular Volume 90.7 fl (80.0-94.0); Platelet Count 241 thou/uL (130-400); Red Blood Cell (RBC) Count 4.72 mill/uL (4.70-6.10); White Blood Cell (WBC) Count 7.6 thou/uL (4.8-10.8)
[2017-10-29 05:13] LABS: Anion Gap 12 mmol/L (10-20); BUN (Urea Nitrogen) 16 mg/dL (8.4-25.7); CK (CPK) 355 U/L (30-200); Calc. Creatinine Clearance 105 mL/min (70-130); Calcium 9.9 mg/dL (7.8-10.44); Carbon Dioxide 27 mmol/L (22-29); Chloride 105 mmol/L (98-107); Estimated GFR-MDRD 75; Glucose 95 mg/dL (70-105); Potassium 3.9 mmol/L (3.5-5.1); Sodium 140 mmol/L (136-145)
[2017-10-29] MEDS: Enoxaparin Sodium 40 MG/0.4 ML SYRINGE SC SCH (09:36)
[2017-10-29] MEDS: Lisinopril 20 MG TAB PO SCH (09:36)
[2017-10-29] MEDS: Famotidine 20 MG TAB PO SCH ×2 (09:36→19:32)
[2017-10-29] MEDS: Amlodipine 10 MG TAB PO SCH (09:37)
[2017-10-29] MEDS: Clopidogrel Bisulfate 75 MG TAB PO SCH (09:37)
[2017-10-29] MEDS: FLUoxetine HCl 10 MG CAP PO SCH (09:37)
[2017-10-29] MEDS: glipiZIDE 5 MG TAB PO SCH (09:37)
[2017-10-29] MEDS: Perphenazine 2 MG TAB PO SCH ×2 (09:37→19:32)
[2017-10-29] MEDS: metFORMIN 500 MG TAB PO SCH ×2 (09:37→19:32)
[2017-10-29] MEDS: Loratadine 10 MG TAB PO SCH (09:38)
[2017-10-29] MEDS: risperiDONE 1 MG TAB PO SCH ×3 (09:38→19:32)
--- NOTE | 2017-10-29 12:36 | PDOC.PN ---
- Subjective Encounter Start Date: 10/29/17 Encounter Start Time: 08:20 Pt seen for followup re: rhabdomyolysis. Unable to complete ROS because pt was mumbling. - Objective Resuscitation Status: Resuscitation Status FULL:Full Resuscitation MAR Reviewed: Yes Vital Signs & Weight: Vital Signs (12 hours) Temp Pulse Resp BP BP BP Pulse Ox 10/29/17 11:57 97.3 F L 91 18 118/81 91 L 10/29/17 09:37 80 10/29/17 09:36 141/88 H 10/29/17 08:00 98.2 F 80 20 10/29/17 07:58 98.2 F 80 20 133/92 H 94 L 10/29/17 04:00 98.6 F 75 20 148/95 H 93 L Weight Admit Weight 199 lb 3.2 oz Weight 205 lb 5 oz I&O: 10/28/17 10/29/17 10/30/17 06:59 06:59 06:59 Intake Total 2460 2200 Output Total 1950 Balance 2460 250 Result Diagrams: 10/29/17 04:35 10/29/17 04:35 Additional Labs: Accuchecks 10/29/17 10/29/17 10/28/17 11:32 04:34 19:48 POC Glucose 131 H 89 144 H 10/28/17 16:34 POC Glucose 72 Phys Exam - Physical Examination Constitutional: NAD HEENT: moist MMs Neck: supple Respiratory: clear to auscultation bilateral Cardiovascular: RRR Gastrointestinal: soft, non-tender Neurological: moves all 4 limbs Psychiatric: normal affect Dx/Plan (1) Rhabdomyolysis Code(s): M62.82 - RHABDOMYOLYSIS Status: Acute Comment: CK improved, pt if off of IV fluids. maintaining good oral intake. (2) Diabetes type 2, controlled Code(s): E11.9 - TYPE 2 DIABETES MELLITUS WITHOUT COMPLICATIONS Status: Chronic Comment: accuchecks, insulin sliding scale (3) Hypertension Code(s): I10 - ESSENTIAL (PRIMARY) HYPERTENSION Status: Chronic Comment: Stable (4) Obesity (BMI 30-39.9) Code(s): E66.9 - OBESITY, UNSPECIFIED Status: Chronic Comment: stable (5) Paroxysmal atrial fibrillation Code(s): I48.0 - PAROXYSMAL ATRIAL FIBRILLATION Status: Chronic Comment: Rate-controlled. (6) Bipolar disorder Code(s): F31.9 - BIPOLAR DISORDER, UNSPECIFIED Status: Chronic Comment: home medications resumed (7) Chest pain Code(s): R07.9 - CHEST PAIN, UNSPECIFIED Status: Resolved - Plan * . Review of Systems - Medications/Allergies Allergies/Adverse Reactions: Allergies Allergy/AdvReac Type Severity Reaction Status Date / Time No Known Drug Allergies Allergy Verified 03/07/15 00:36 Medications: Current Medications Acetaminophen (Tylenol) 650 mg PO Q4H PRN PRN Reason: Headache/Fever or Pain Last Admin: 10/27/17 21:08 Dose: 650 mg Hydrocodone Bitart/Acetaminophen ([place] 5/325) 1 tab PO Q4H PRN PRN Reason: Moderate Pain (4-6) Al Hydroxide/Mg Hydroxide (Maalox) 30 ml PO Q6H PRN PRN Reason: Heartburn or Indigestion Al Hydroxide/Mg Hydroxide (Maalox Plus) 30 ml PO Q4HR PRN PRN Reason: GI Upset Amlodipine Besylate (Norvasc) 10 mg PO DAILY [facility] Last Admin: 10/29/17 09:37 Dose: 10 mg Clonidine (Catapres) 0.1 mg PO TID PRN PRN Reason: Hypertension Clopidogrel Bisulfate (Plavix) 75 mg PO DAILY [facility] Last Admin: 10/29/17 09:37 Dose: 75 mg Dextrose/Water (Dextrose 50%) 25 gm SLOW IVP PRN PRN PRN Reason: Hypoglycemia Divalproex Sodium (Depakote Er) 500 mg PO HS [facility] Last Admin: 10/28/17 22:15 Dose: 500 mg Divalproex Sodium (Depakote Er) 250 mg PO DAILY [facility] Last Admin: 10/29/17 09:37 Dose: 250 mg Docusate Sodium (Colace) 100 mg PO DAILY PRN PRN Reason: Constipation Last Admin: 10/26/17 21:52 Dose: 100 mg Enoxaparin Sodium (Lovenox) 40 mg SC 0900 [facility] Last Admin: 10/29/17 09:36 Dose: 40 mg Famotidine (Pepcid) 20 mg PO BID [facility] Last Admin: 10/29/17 09:36 Dose: 20 mg Fluoxetine HCl (Prozac) 10 mg PO DAILY [facility] Last Admin: 10/29/17 09:37 Dose: 10 mg Glipizide (Glucotrol) 5 mg PO DAILY [facility] Last Admin: 10/29/17 09:37 Dose: 5 mg Glucagon (Glucagon) 1 mg IM PRN PRN PRN Reason: Hypoglycemia Hydroxyzine Pamoate (Vistaril) 50 mg PO HS PRN PRN Reason: Insomnia Dextrose/Water (D5w) 1,000 mls @ 0 mls/hr IV .Q0M PRN; As Directed PRN Reason: Hypoglycemia Insulin Human Lispro (Humalog) 0 units SC .MODERATE SLIDING SC PRN PRN Reason: Moderate Correctional Scale Insulin Human Lispro (Humalog) 0 units SC .BEDTIME SLIDING SC PRN PRN Reason: Bedtime Correctional Scale Lisinopril (Zestril) 30 mg PO DAILY [facility] Last Admin: 10/29/17 09:36 Dose: 30 mg Loperamide HCl (Imodium) 2 mg PO PRN PRN PRN Reason: Diarrhea/Loose Stools Loratadine (Claritin) 10 mg PO DAILY [facility] Last Admin: 10/29/17 09:38 Dose: 10 mg Magnesium Hydroxide (Milk Of Magnesium) 30 ml PO Q4H PRN PRN Reason: Constipation Metformin HCl (Glucophage) 1,000 mg PO BID [facility] Last Admin: 10/29/17 09:37 Dose: 1,000 mg Mirtazapine (Remeron) 15 mg PO HS [facility] Last Admin: 10/28/17 22:15 Dose: 15 mg Ondansetron HCl (Zofran Odt) 4 mg PO Q6H PRN PRN Reason: Nausea/Vomiting Ondansetron HCl (Zofran) 4 mg IVP Q6H PRN PRN Reason: Nausea/Vomiting Perphenazine (Trilafon) 2 mg PO BID [facility] Last Admin: 10/29/17 09:37 Dose: 2 mg Risperidone (Risperidone) 0.5 mg PO DAILY [facility] Last Admin: 10/29/17 09:38 Dose: 0.5 mg Risperidone (Risperidone) 1 mg PO HS [facility] Last Admin: 10/28/17 22:16 Dose: 1 mg Senna (Senokot) 2 tab PO HSPRN PRN PRN Reason: Constipation Sodium Chloride (Flush - Normal Saline) 10 ml IVF PRN PRN PRN Reason: Saline Flush Zolpidem Tartrate (Ambien) 5 mg PO HSPRN PRN PRN Reason: Insomnia Last Admin: 10/26/17 21:52 Dose: 5 mg
[2017-10-29 14:36] VITALS: BMI 34.1
[2017-10-29] MEDS: Mirtazapine 15 MG TAB PO SCH (19:32)
[2017-10-30] MEDS ORDERED: Ziprasidone 20 MG VIAL ONE (06:52)
[2017-10-30] MEDS ORDERED: Ziprasidone 20 MG VIAL IM SCH (07:00)
[2017-10-30] MEDS: Enoxaparin Sodium 40 MG/0.4 ML SYRINGE SC SCH (07:26)
[2017-10-30] MEDS: metFORMIN 500 MG TAB PO SCH (07:27)
[2017-10-30] MEDS: Lisinopril 20 MG TAB PO SCH (07:27)
[2017-10-30] MEDS: Amlodipine 10 MG TAB PO SCH (07:28)
[2017-10-30] MEDS: Famotidine 20 MG TAB PO SCH (07:28)
[2017-10-30] MEDS: risperiDONE 1 MG TAB PO SCH (07:28)
[2017-10-30] MEDS: FLUoxetine HCl 10 MG CAP PO SCH (07:28)
[2017-10-30] MEDS: glipiZIDE 5 MG TAB PO SCH (07:28)
[2017-10-30] MEDS: Clopidogrel Bisulfate 75 MG TAB PO SCH (07:28)
[2017-10-30] MEDS: Perphenazine 2 MG TAB PO SCH (07:28)
[2017-10-30] MEDS: Loratadine 10 MG TAB PO SCH (07:29)
[2017-10-30 07:41] VITALS: BP 127/89
[2017-10-30 09:22] VITALS: TEMP 98.4
--- NOTE | 2017-10-31 00:42 | DIS ---
DATE OF ADMISSION: 10/25/2017 DATE OF DISCHARGE: 10/30/2017 PRIMARY CARE PROVIDER: None. DISCHARGE DIAGNOSIS: Rhabdomyolysis. CONDITION OF PATIENT ON THE DAY OF DISCHARGE: Stable. I assessed Mr. Klein on the day of discha rge. He was mumbling, unable to provide any history. Vital signs are stable. S1 and S2 are heard, irregular. Lungs are clear to auscultation bilaterally. HOSPITAL COURSE: Mr. Klein is a pleasant 57-year-old gentleman who was admitted to [facility] on 10/25/2017 for rhabdomyolysis. He was treated with intravenous fluids. His creatinine was normal. On 10/29/2017, his CK level had improved to 355, down from 1814 on 10/25/2017 . [facility] was consulted. He is being discharged to [facility], from where he was admitted to the hospital. DISCHARGE DESTINATION: [facility]. DISCHARGE MEDICATIONS: No change was made to his preadmission home medications as dictated on histor y and physical note from 10/25/2017.
--- NOTE | 2017-11-02 08:39 | EKG ---
Test Reason : C/O CHEST PAIN Blood Pressure : / mmHG Vent. Rate : 098 BPM Atrial Rate : 078 BPM P-R Int : 000 ms QRS Dur : 092 ms QT Int : 344 ms P-R-T Axes : 000 028 -07 degrees QTc Int : 439 ms Atrial fibrillation Nonspecific T wave abnormality , probably digitalis effect Abnormal ECG Confirmed by MELISSA CASTRO MD ([id number]) on 11/02/2017 8:39:14 AM Referred By: RAMONA Confirmed By:MELISSA CASTRO MD
== END 2017-10-30 12:26 | disposition short-term general hospital (02) ==
LOC: ERS 15:46 → 2NO 22:32 → T4-A 10-28 19:04
PROVIDERS: ADMIT Internal Medicine; ATTEND Internal Medicine
DX: M62.82 Rhabdomyolysis (principal); F20.9 Schizophrenia, unspecified; I48.2 Chronic atrial fibrillation; I10 Essential (primary) hypertension; E11.9 Type 2 diabetes mellitus without complications; F31.9 Bipolar disorder, unspecified; F41.9 Anxiety disorder, unspecified; E66.9 Obesity, unspecified; E87.2 Acidosis; R74.0 Nonspecific elevation of levels of transaminase and lactic acid dehydrogenase [LDH]; R07.9 Chest pain, unspecified; Z68.34 Body mass index [BMI] 34.0-34.9, adult; Z79.84 Long term (current) use of oral hypoglycemic drugs; Z79.02 Long term (current) use of antithrombotics/antiplatelets; Z79.899 Other long term (current) drug therapy; Z90.49 Acquired absence of other specified parts of digestive tract; Z90.89 Acquired absence of other organs
CPT/HCPCS: 36415; 36416; 51701; 70450; 71045; 74177; 80048; 80053; 80074; 80306; 81003; 82140; 82550; 82553; 83605; 84484; 85025; 87086; 93005; 93010; 96360; 96361; 96372; G0378; G8996-GN-CH; G8997-GN-CH; J1650; J3486; Q0175

== ENCOUNTER 2017-11-06 04:21 | Emergency (ER) | payer SELFPAY ==
[2017-11-06 04:56] LABS: #Basophils 0.1 thou/uL (0.0-0.2); #Eosinphils 0.2 thou/uL (0.0-0.7); #Lymphocytes 2.6 thou/uL (1.20-3.40); #Monocytes 0.6 thou/uL (0.11-0.59); #Neutrophils 2.6 thou/uL (1.40-6.50); %Eosinophils 3.8 % (0.0-10.0); %Lymphocytes 42.5 % (21.0-51.0); %Monocytes 10.2 % (0.0-10.0); %Neutrophils 42.4 % (42.0-75.0); Hemoglobin 13.9 g/dL (14.0-18.0); Mean Corpuscular Hemoglobin 31.1 pg (27.0-31.0); Mean Corpuscular Volume 91.4 fl (80.0-94.0); Mean Platelet Volume 6.8 fL (7.4-10.4); Platelet Count 273 thou/uL (130-400); Red Blood Cell (RBC) Count 4.46 mill/uL (4.70-6.10)
[2017-11-06 05:15] LABS: ALT (SGPT) 70 U/L (8-55); AST (SGOT) 47 U/L (5-34); Albumin 4.1 g/dL (3.5-5.0); Alkaline Phosphatase 90 U/L (40-150); Anion Gap 11 mmol/L (10-20); BUN (Urea Nitrogen) 26 mg/dL (8.4-25.7); Bilirubin, Total 0.9 mg/dL (0.2-1.2); CK (CPK) 248 U/L (30-200); Calc. Creatinine Clearance 0 mL/min (70-130); Calcium 9.6 mg/dL (7.8-10.44); Carbon Dioxide 27 mmol/L (22-29); Chloride 105 mmol/L (98-107); Estimated GFR-MDRD 81; Globulin 3.2 g/dL (2.4-3.5); Glucose 93 mg/dL (70-105); Lipase 23 U/L (8-78); Potassium 4.1 mmol/L (3.5-5.1); Protein, Total 7.3 g/dL (6.0-8.3); Sodium 139 mmol/L (136-145)
[2017-11-06 05:20] LABS: CKMB 1.8 ng/mL (0-6.6); Troponin I Less than 0.010 ng/mL (< 0.028)
--- NOTE | 2017-11-06 09:01 | RAD ---
PORTABLE CHEST: Date: 11/06/17 COMPARISON: 10/15/17 study. HISTORY: Chest pain. FINDINGS: Heart size is upper limits of normal. Mediastinal structures appear unremarkable. Lungs are clear of any infiltrative process. IMPRESSION: No active intrathoracic disease. POS: [facility]
== END 2017-11-06 06:20 | disposition home or self-care (01) ==
LOC: ERS 04:21
DX: R07.9 Chest pain, unspecified (principal); F29 Unspecified psychosis not due to a substance or known physiological condition; I48.91 Unspecified atrial fibrillation; E11.9 Type 2 diabetes mellitus without complications; I10 Essential (primary) hypertension; F20.9 Schizophrenia, unspecified; F41.9 Anxiety disorder, unspecified; F31.9 Bipolar disorder, unspecified; Z79.84 Long term (current) use of oral hypoglycemic drugs; Z79.02 Long term (current) use of antithrombotics/antiplatelets; Z79.899 Other long term (current) drug therapy
CPT/HCPCS: 71045; 80053; 82550; 82553; 83690; 83880; 84484; 85025; 85379; 93005

== ENCOUNTER 2017-11-25 20:55 | Emergency (ER) | payer SELFPAY ==
[2017-11-25 21:45] LABS: Bilirubin Negative (Negative); Blood, Urine Negative (Negative); Clarity CLEAR (Clear); Glucose, Urine (Dipstick) Negative (Negative); Leukocyte Negative (Negative); Nitrite Negative (Negative); Protein, Urine (Dipstick) Negative (Neg-Trace); Specific Gravity, Urine 1.008 (1.002-1.036); Urobilinogen 0.2 mg/dL (0.2-1.0); pH, Urine 6.5 (5.0-9.0)
[2017-11-25 21:46] LABS: #Basophils 0.1 thou/uL (0.0-0.2); #Eosinphils 0.2 thou/uL (0.0-0.7); #Lymphocytes 2.8 thou/uL (1.20-3.40); #Monocytes 0.9 thou/uL (0.11-0.59); #Neutrophils 2.4 thou/uL (1.40-6.50); %Basophils 1.4 % (0.0-1.0); %Eosinophils 3.5 % (0.0-10.0); %Lymphocytes 44.2 % (21.0-51.0); %Monocytes 13.6 % (0.0-10.0); %Neutrophils 37.3 % (42.0-75.0); Mean Corpuscular HGB CONC 34.7 g/dL (32.0-36.0); Mean Corpuscular Hemoglobin 31.4 pg (27.0-31.0); Mean Corpuscular Volume 90.6 fl (80.0-94.0); Mean Platelet Volume 6.3 fL (7.4-10.4); Platelet Count 203 thou/uL (130-400); RBC Distribution Width 12.3 % (11.5-14.5); Red Blood Cell (RBC) Count 4.44 mill/uL (4.70-6.10); White Blood Cell (WBC) Count 6.3 thou/uL (4.8-10.8)
[2017-11-25 21:54] LABS: Amphetamine Not Detected (NotDetected); Barbiturates Screen Not Detected (NotDetected); Benzodiazepine Screen Not Detected (NotDetected); Cocaine Metabolite Screen Not Detected (NotDetected); Medtox Control Line Valid? VALID (VALID); Medtox Reader # READER 1; Methadone Not Detected (NotDetected); Methamphetamine Not Detected (NotDetected); Opiate Screen Not Detected (NotDetected); Oxycodone Screen Not Detected (NotDetected); Phencyclidine (PCP) Not Detected (NotDetected); THC/Cannabinoid Screen Not Detected (NotDetected); Tricyclic Screen Not Detected (NotDetected)
[2017-11-25 22:07] LABS: ALT (SGPT) 45 U/L (8-55); AST (SGOT) 37 U/L (5-34); Acetaminophen Less than 6.0 mcg/mL (10.0-30.0); Alcohol Less than 10 mg/dL (Less than 10); Alkaline Phosphatase 92 U/L (40-150); Anion Gap 8 mmol/L (10-20); BUN (Urea Nitrogen) 16 mg/dL (8.4-25.7); Bilirubin, Total 0.5 mg/dL (0.2-1.2); CK (CPK) 221 U/L (30-200); Calc. Creatinine Clearance 0 mL/min (70-130); Calcium 9.5 mg/dL (7.8-10.44); Carbon Dioxide 30 mmol/L (22-29); Chloride 105 mmol/L (98-107); Estimated GFR-MDRD 89; Globulin 3.2 g/dL (2.4-3.5); Glucose 135 mg/dL (70-105); Protein, Total 7.2 g/dL (6.0-8.3); Salicylate Less than 8.0 mg/dL (15.0-30.0); Sodium 139 mmol/L (136-145)
== END 2017-11-26 00:50 | disposition home or self-care (01) ==
LOC: ERS 20:55 → EEVIPCON 20:55 → ERS 11-26 00:50
DX: Z00.8 Encounter for other general examination (principal); E11.9 Type 2 diabetes mellitus without complications; F31.9 Bipolar disorder, unspecified; F41.9 Anxiety disorder, unspecified; F20.9 Schizophrenia, unspecified; I10 Essential (primary) hypertension; Z79.84 Long term (current) use of oral hypoglycemic drugs; Z79.899 Other long term (current) drug therapy
CPT/HCPCS: 36415; 80053; 80306; 80307; 81003; 82550; 84443; 85025; 93005; 94760; 96360

== ENCOUNTER 2017-11-29 17:48 | Emergency (ER) | payer SELFPAY ==
[2017-11-29 18:55] LABS: Hemoglobin 13.7 g/dL (14.0-18.0); Mean Corpuscular HGB CONC 33.6 g/dL (32.0-36.0); Mean Corpuscular Hemoglobin 30.7 pg (27.0-31.0); Mean Corpuscular Volume 91.4 fl (80.0-94.0); Mean Platelet Volume 6.5 fL (7.4-10.4); Platelet Count 198 thou/uL (130-400); RBC Distribution Width 12.3 % (11.5-14.5); Red Blood Cell (RBC) Count 4.47 mill/uL (4.70-6.10); White Blood Cell (WBC) Count 4.5 thou/uL (4.8-10.8)
[2017-11-29 19:08] LABS: Acetaminophen Less than 6.0 mcg/mL (10.0-30.0); Alcohol Less than 10 mg/dL (Less than 10); Salicylate Less than 8.0 mg/dL (15.0-30.0)
[2017-11-29 19:10] LABS: Eosinophils 4 % (0-10); Lymphocytes 55 % (21-51); MDiff Complete? YES; Monocytes 15 % (0-10); Neutrophil 13 % (42-75); PLT Morphology Comment Appears Adequate; RBC Morphology Normal; Reactive Lymphocytes 10 % (0-10)
[2017-11-29 19:12] LABS: ALT (SGPT) 46 U/L (8-55); AST (SGOT) 39 U/L (5-34); Albumin 3.8 g/dL (3.5-5.0); Alkaline Phosphatase 87 U/L (40-150); Anion Gap 15 mmol/L (10-20); BUN (Urea Nitrogen) 15 mg/dL (8.4-25.7); Bilirubin, Total 0.6 mg/dL (0.2-1.2); CK (CPK) 358 U/L (30-200); Calc. Creatinine Clearance 0 mL/min (70-130); Calcium 8.9 mg/dL (7.8-10.44); Carbon Dioxide 21 mmol/L (22-29); Chloride 106 mmol/L (98-107); Estimated GFR-MDRD 77; Globulin 3.1 g/dL (2.4-3.5); Glucose 121 mg/dL (70-105); Potassium 3.7 mmol/L (3.5-5.1); Protein, Total 6.9 g/dL (6.0-8.3); Sodium 138 mmol/L (136-145)
[2017-11-29 19:59] LABS: Bilirubin Negative (Negative); Blood, Urine Negative (Negative); Clarity CLEAR (Clear); Glucose, Urine (Dipstick) 500 mg/dL (Negative); Leukocyte Negative (Negative); Nitrite Negative (Negative); Protein, Urine (Dipstick) Negative (Neg-Trace); Specific Gravity, Urine 1.013 (1.002-1.036)
[2017-11-29 20:10] LABS: Amphetamine Not Detected (NotDetected); Barbiturates Screen Not Detected (NotDetected); Benzodiazepine Screen Not Detected (NotDetected); Cocaine Metabolite Screen Not Detected (NotDetected); Medtox Control Line Valid? VALID (VALID); Medtox Reader # READER 1; Methadone Not Detected (NotDetected); Methamphetamine Not Detected (NotDetected); Opiate Screen Not Detected (NotDetected); Oxycodone Screen Not Detected (NotDetected); Phencyclidine (PCP) Not Detected (NotDetected); THC/Cannabinoid Screen Not Detected (NotDetected); Tricyclic Screen Not Detected (NotDetected)
[2017-11-30] MEDS ORDERED: Aspirin 325 MG TAB ONE (14:06)
[2017-11-30] MEDS ORDERED: Amlodipine 5 MG TAB ONE (14:06)
[2017-11-30] MEDS ORDERED: Famotidine 20 MG TAB ONE (14:06)
[2017-11-30] MEDS ORDERED: Lisinopril 10 MG TAB ONE (14:06)
[2017-11-30] MEDS ORDERED: Lorazepam 1 MG TAB ONE (14:06)
[2017-11-30] MEDS ORDERED: metFORMIN 500 MG TAB PO SCH (14:15)
[2017-11-30] MEDS ORDERED: glipiZIDE 5 MG TAB PO SCH (14:15)
[2017-12-01] MEDS ORDERED: glipiZIDE 5 MG TAB PO ONE (08:00)
[2017-12-01] MEDS ORDERED: Divalproex Sodium DR 500 MG TAB PO ONE (08:00)
[2017-12-01] MEDS ORDERED: metFORMIN 500 MG TAB PO ONE (08:00)
[2017-12-01] MEDS ORDERED: Divalproex Sodium DR 500 MG TAB PO SCH (20:15)
[2017-12-01] MEDS ORDERED: clonazePAM 1 MG TAB PO SCH (20:15)
[2017-12-02] MEDS ORDERED: Famotidine 20 MG TAB PO SCH (08:30)
[2017-12-02] MEDS ORDERED: Lisinopril 10 MG TAB PO SCH (08:30)
[2017-12-02] MEDS ORDERED: Amlodipine 10 MG TAB PO SCH (08:30)
[2017-12-02] MEDS ORDERED: clonazePAM 1 MG TAB PO SCH ×2 (08:30→21:30)
[2017-12-02] MEDS ORDERED: glipiZIDE 5 MG TAB PO SCH (08:30)
[2017-12-02] MEDS ORDERED: metFORMIN 500 MG TAB PO SCH ×2 (08:30→21:30)
[2017-12-02] MEDS ORDERED: Mirtazapine 15 MG TAB PO SCH (21:30)
[2017-12-02] MEDS ORDERED: Divalproex Sodium DR 500 MG TAB PO ONE (21:30)
== END 2017-12-02 21:24 ==
LOC: ERS 17:48
DX: F20.9 Schizophrenia, unspecified (principal); E11.9 Type 2 diabetes mellitus without complications; I10 Essential (primary) hypertension; I48.91 Unspecified atrial fibrillation; F41.9 Anxiety disorder, unspecified; F31.9 Bipolar disorder, unspecified; Z79.84 Long term (current) use of oral hypoglycemic drugs; Z79.82 Long term (current) use of aspirin; Z79.899 Other long term (current) drug therapy
CPT/HCPCS: 36416; 80053; 80306; 80307; 81003; 82550; 84443; 85025; 96360

== ENCOUNTER 2018-01-17 17:58 | Inpatient (IN) | payer SELFPAY ==
[2018-01-17 18:42] LABS: #Basophils 0.1 thou/uL (0.0-0.2); #Eosinphils 0.1 thou/uL (0.0-0.7); #Lymphocytes 3.4 thou/uL (1.20-3.40); #Monocytes 1.3 thou/uL (0.11-0.59); #Neutrophils 8.2 thou/uL (1.40-6.50); %Basophils 0.7 % (0.0-1.0); %Lymphocytes 25.8 % (21.0-51.0); %Neutrophils 62.4 % (42.0-75.0); Hemoglobin 16.9 g/dL (14.0-18.0); Mean Corpuscular HGB CONC 33.6 g/dL (32.0-36.0); Mean Corpuscular Hemoglobin 30.6 pg (27.0-31.0); Mean Corpuscular Volume 91.1 fL (78.0-98.0); Mean Platelet Volume 6.7 fL (7.4-10.4); Platelet Count 305 thou/uL (130-400); RBC Distribution Width 11.9 % (11.5-14.5); Red Blood Cell (RBC) Count 5.53 mill/uL (4.70-6.10); White Blood Cell (WBC) Count 13.1 thou/uL (4.8-10.8)
[2018-01-17 19:00] LABS: ALT (SGPT) 52 U/L (8-55); AST (SGOT) 49 U/L (5-34); Albumin 4.5 g/dL (3.5-5.0); Alkaline Phosphatase 121 U/L (40-150); Anion Gap 19 mmol/L (10-20); BUN (Urea Nitrogen) 45 mg/dL (8.4-25.7); Bilirubin, Total 1.3 mg/dL (0.2-1.2); CK (CPK) 1284 U/L (30-200); Calc. Creatinine Clearance 0 mL/min (70-130); Calcium 9.9 mg/dL (7.8-10.44); Carbon Dioxide 20 mmol/L (22-29); Chloride 105 mmol/L (98-107); Estimated GFR-MDRD 44; Glucose 170 mg/dL (70-105); Lipase 27 U/L (8-78); Potassium 4.2 mmol/L (3.5-5.1); Protein, Total 8.5 g/dL (6.0-8.3); Sodium 140 mmol/L (136-145)
--- NOTE | 2018-01-17 19:00 | CT ---
CT OF THE BRAIN WITHOUT CONTRAST: 01/17/18 COMPARISON: 10/25/17. HISTORY: Altered mental status. TECHNIQUE: Multiple contiguous axial images were obtained in a CT of the brain without contrast. FINDINGS: The brain is normal in morphology and attenuation without focal lesions or confluent areas of infarct ion. There is no evidence of hydrocephalus, intracranial hemorrhage, or extra-axial fluid collection. The calvarium and overlying soft tissues are unremarkable. There is a mucous retention cyst in the ri ght maxillary sinus. The mastoid air cells are well aerated. IMPRESSION: No evidence of acute intracranial abnormality. POS: [facility]
--- NOTE | 2018-01-17 19:01 | RAD ---
SINGLE VIEW OF THE CHEST: 01/17/18 COMPARISON: None. HISTORY: Altered mental status. Chest pain. FINDINGS: Single view of the chest shows an enlarged cardiomediastinal silhouette. There is stable elevation of the right hemidiaphragm. There is no evidence of consolidation, mass, or pleural effusion. IMPRESSION: Cardiomegaly. POS: [facility]
[2018-01-17 19:02] LABS: Bilirubin Small (Negative); Blood, Urine Negative (Negative); Clarity CLEAR (Clear); Glucose, Urine (Dipstick) Negative (Negative); Leukocyte Trace (Negative); Nitrite Negative (Negative); Protein, Urine (Dipstick) 100 mg/dL (Neg-Trace); pH, Urine 5.5 (5.0-9.0)
[2018-01-17 19:04] LABS: Bacteria/HPF None Seen HPF (None Seen); Pathc Cast-AUWi Flag 2.18 (0-2.49); RBC/HPF 0-3 HPF (0-3); Squamous Epithelial 0-3 HPF (0-3); WBC/HPF 0-3 HPF (0-3)
[2018-01-17 19:04] LABS: CKMB 5.4 ng/mL (0-6.6); Troponin I Less than 0.010 ng/mL (< 0.028)
[2018-01-17 19:09] LABS: Hyaline Casts/LPF 0-3 HYALINE CAST LPF (0-3 Hyaline); Renal Epithelial None Seen HPF (0-3); Transitional Epithelial NONE SEEN HPF (0-3)
[2018-01-17] MEDS ORDERED: Cefepime 2 GM in Sodium Chloride 0.9% 100 ML IVPB SCH (20:45)
[2018-01-17 21:19] LABS: Acetaminophen Less than 6.0 mcg/mL (10.0-30.0); Alcohol Less than 10 mg/dL (Less than 10); Salicylate Less than 8.0 mg/dL (15.0-30.0)
[2018-01-17 21:33] LABS: Amphetamine Not Detected (NotDetected); Barbiturates Screen Not Detected (NotDetected); Benzodiazepine Screen Not Detected (NotDetected); Cocaine Metabolite Screen Not Detected (NotDetected); Medtox Control Line Valid? VALID (VALID); Medtox Reader # READER 1; Methadone Not Detected (NotDetected); Methamphetamine Not Detected (NotDetected); Opiate Screen Not Detected (NotDetected); Oxycodone Screen Not Detected (NotDetected); Phencyclidine (PCP) Not Detected (NotDetected); THC/Cannabinoid Screen Not Detected (NotDetected); Tricyclic Screen Not Detected (NotDetected)
[2018-01-17] MEDS ORDERED: Docusate 100 MG CAP PO PRN (21:34)
[2018-01-17] MEDS ORDERED: cloNIDine 0.1 MG TAB PO PRN (21:34)
[2018-01-17] MEDS ORDERED: cefTRIAXone\\ROCEPHIN 2 GM VIAL ONE (21:39)
[2018-01-17] MEDS ORDERED: Dextrose 50% Abboject 50 ML SYRINGE SLOW IVP PRN (22:07)
[2018-01-17] MEDS ORDERED: Dextrose 5% in Water 1,000 ML IV PRN (22:07)
[2018-01-17 22:17] LABS: CSF Source CSF; Clarity Clear (Clear); RBC Count - Manual 1 /cumm (None Seen); Tube # 4; WBC/NonHematics Count - Manual 2 /cumm (0-5)
[2018-01-17 22:18] LABS: CSF Source CSF; Clarity Clear (Clear); RBC Count - Manual 8 /cumm (None Seen); Tube # 1; WBC/NonHematics Count - Manual 1 /cumm (0-5)
[2018-01-17 22:39] LABS: Lactic Acid 1.3 mmol/L (0.5-2.2)
[2018-01-17 23:08] LABS: Color Of CSF Supernatant COLORLESS (Colorless); Unspun CSF Color COLORLESS (Colorless)
[2018-01-17 23:09] LABS: Tube # 3
[2018-01-17 23:15] LABS: CSF, Glucose 97 mg/dl (40-70); CSF, Protein 39 mg/dL (15-40)
--- NOTE | 2018-01-18 00:19 | HP ---
CODE STATUS: FULL CODE. HISTORY OF PRESENT ILLNESS: This is a 57-year-old male patient with past medical history of schizophrenia, history is obtained from records and ER staff since patient does not communicate properly, although he is alert. The patient presented with chief complaint of change in mental status. The patient had been confused, this is a recurrent admission for the same problem, he had been here in the hospital last time in records was in 2017 for the same symptoms. The patient seems to be confused, and noncooperative during the interview, only answer simple questions, the patient seems to be rigid, some hyperthermia with 100.9. Symptoms are moderate to severe, he seems calm, no clear triggers, no alleviating factors. We are considering diagnosis of infection, tap has been done. Also another diagnosis we were considering is neuroleptic malignant syndrome; however, it is not clear what medication he was taking at home, there is no hemodynamic or autonomic instability at this point. We will monitor on tele. We will hold psych medications. We will need Neurology assisted in the morning for further management, if patient deteriorates, we will place him in ICU. Respiratory status is stable. REVIEW OF SYSTEMS: Unable to obtain since patient is not able to give a clear history. PAST MEDICAL HISTORY: History of diabetes, type 2; hypertension; atrial fibrillation. PAST SURGICAL HISTORY: No surgical history found in records. PSYCHIATRIC HISTORY: Schizophrenia, anxiety, bipolar disorder, depression. SOCIAL HISTORY: No alcohol, no drugs. No smoking history. ALLERGIES: No reported drug allergies. MEDICATIONS: On record, metformin, Pepcid, Remeron, Norvasc, Glucotrol, lisinopril, aspirin, clonazepam, Depakote. This list was as per last admission , unable to know if this is completely accurate. PHYSICAL EXAMINATION: VITAL SIGNS: On presentation, blood pressure 108/79 with heart rate 99, respiratory rate 15, temperature 100.6, saturation 98 on room air. GENERAL APPEARANCE: The patient is alert, disoriented, unable to answer simple questions. HEENT: Eyes: Normal conjunctivae. Moist oral mucosa. Anicteric. NECK: No JVD. RESPIRATORY: Bilateral air entry. No rales, no wheezing. Symmetric expansion. CARDIOVASCULAR: Normal rate, regular rhythm, no murmurs, no gallops, no edema. ABDOMEN: Soft, normal bowel sounds. MUSCULOSKELETAL: Baseline range of motion and strength. No tenderness. The patient is rigid bilaterally with increased tone. SKIN: Warm and intact. No pallor, no rash, no redness. NEUROLOGIC: The patient has increased muscle tone in all 4 extremities. Able to bend his knees and also right upper extremities; however, there is some resistance with. Cranial nerves seem to be intact. PSYCHIATRIC: The patient is with a flat affect, no anxious, suboptimal judgment. LABORATORY DATA AND IMAGING: Labs are reviewed. White count 13.1, hemoglobin 16, MCV 91, platelet count 305. Sodium 140, potassium 4.2, chloride 105, carbon dioxide 20, anion gap 19, BUN 45, creatinine 1.6. In previous admissions , as per old records the creatinine was 1.0. Glucose 170. Lactic acid 2.3, calcium 9.9, total bilirubin 1.3, AST 49. CK 1284. Serum total protein 8.5, globulin 4.0, lipase 27. TSH 2.8. A urine was done. The patient has no red blood cells, no white blood cells, negative for blood. Urine tox was negative. Brain CT was done. The patient has no evidence of any acute intracranial abnormality. Chest x-ray was reviewed. The patient has cardiomegaly. EKG was discussed with the performing physician from ER, no acute abnormalities were seen. ASSESSMENT AND PLAN: The patient will be placed in the hospital for the following medical problems. 1. Fever of 100.6, unclear etiology. The patient also has increased rigidity, increased CK, elevated BUN and creatinine, there is always concern for neuroleptic malignant syndrome; however, it is not clear what medication the patient was taken at home. In one of the list, there was listed risperidone; however, in the other list is not showing that the patient was taken it. We will continue to monitor him. The patient has altered mental status, hyperthermia, and increased muscle tones with increased CK, however, but there is no hemodynamic or autonomic instability. We will monitor the patient on telemetry, we will rule out infection, spinal tap has been done, not resulted yet. For now, we will cover with broad spectrum antibiotics, follow cultures. We will hold any antipsychotic medications. 2. Uncontrolled diabetes, hyperglycemia, reconcile home medications. Sliding scale for optimal control. 3. Lactic acidosis. The patient has a lactic acid of 2.3. We will treat underlying condition. Continue hydration. Could be secondary to underlying sepsis. 4. Possible sepsis. The patient has elevated white count, fever, lactic acidosis, started on broad spectrum antibiotics, source not clear. If infection present, most likely source could be culture and sensitivity. Follow up culture, continue antibiotics, IV fluids. 5. Increase CK, small increase in CK of 1284, we will monitor CK. We will increase hydration. 6. Dehydration. The patient has high BUN and creatinine, we will continue hydration. Monitor kidney function. 7. Acute kidney injury with elevation of creatinine to 1.6. In previous admissions as per old records is1.0. Continue hydration, monitor kidney function. If not improving, may need Nephrology evaluation for assistance. 8. Deep venous thrombosis prophylaxis. 9. 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 Unclear, he had been taking medications at home. We will monitor, if any NMS is ruled out, need to restart the patient on antipsychotic medications. We will need neuro see him in the morning and psych evaluation. KIMD
[2018-01-18] MEDS: Sodium Chloride 0.9% 1,000 ML IV SCH ×4 (01:12→20:30)
[2018-01-18] MEDS: Cefepime 2 GM in Sodium Chloride 0.9% 100 ML IVPB SCH ×2 (01:19→15:14)
[2018-01-18] MEDS ORDERED: Famotidine 20 MG TAB PO SCH (09:00)
[2018-01-18] MEDS: Amlodipine 10 MG TAB PO SCH (09:04)
[2018-01-18] MEDS: Vancomycin HCl 1 GM in Premix Bag 1 BAG IVPB SCH ×2 (09:04→20:29)
[2018-01-18] MEDS: Clopidogrel Bisulfate 75 MG TAB PO SCH (09:05)
[2018-01-18] MEDS ORDERED: Cefepime 2 GM in Sodium Chloride 0.9% 100 ML IVPB SCH (10:00)
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
--- NOTE | 2018-01-18 12:24 | PDOC.PN ---
- Subjective Encounter Start Date: 01/18/18 Encounter Start Time: 08:45 Subjective: awake, responds to 1 or 2 questions well but moslty tangential responses or -: he remains mute. Not in distress -: says he is hungry - Objective MAR Reviewed: Yes Vital Signs & Weight: Vital Signs (12 hours) Temp Pulse Resp BP Pulse Ox 01/18/18 09:04 94 01/18/18 08:52 100.5 F H 94 28 H 178/95 H 98 01/18/18 04:00 99.1 F 97 16 149/92 H 99 Weight Weight 199 lb 1.6 oz Result Diagrams: 01/17/18 18:29 01/17/18 18:29 Additional Labs: Accuchecks 01/18/18 01/18/18 11:08 06:01 POC Glucose 214 H 130 H Phys Exam - Physical Examination HEENT: PERRLA, sclera anicteric Neck: no JVD, supple Respiratory: no wheezing, no rales Cardiovascular: RRR, no significant murmur Gastrointestinal: soft, non-tender, positive bowel sounds Musculoskeletal: no edema, pulses present Neurological: non-focal, moves all 4 limbs not fully oriented, flat affect, has been hallucinating per staff Dx/Plan (1) Acute encephalopathy Code(s): G93.40 - ENCEPHALOPATHY, UNSPECIFIED Status: Acute (2) Rhabdomyolysis Code(s): M62.82 - RHABDOMYOLYSIS Status: Acute (3) Sepsis Code(s): A41.9 - SEPSIS, UNSPECIFIED ORGANISM Status: Suspected Qualifiers: Sepsis type: sepsis due to unspecified organism Qualified Code(s): A41.9 - Sepsis, unspecified organism (4) Schizoaffective disorder Code(s): F25.9 - SCHIZOAFFECTIVE DISORDER, UNSPECIFIED Status: Chronic Qualifiers: Schizoaffective disorder type: unspecified Qualified Code(s): F25.9 - Schizoaffective disorder, unspecified (5) Diabetes type 2, controlled Code(s): E11.9 - TYPE 2 DIABETES MELLITUS WITHOUT COMPLICATIONS Status: Chronic Qualifiers: Diabetes mellitus director of food and nutrition insulin use: without mcc use Diabetes mellitus complication status: with unspecified complications Qualified Code(s) : E11.8 - Type 2 diabetes mellitus with unspecified complications Comment: accuchecks, insulin sliding scale (6) Hypertension Code(s): I10 - ESSENTIAL (PRIMARY) HYPERTENSION Status: Chronic Qualifiers: Hypertension type: essential hypertension Qualified Code(s): I10 - Essential (primary) hypertension Comment: Stable (7) Obesity (BMI 30-39.9) Code(s): E66.9 - OBESITY, UNSPECIFIED Status: Chronic - Plan continue iv hydration and antibiotics for 24hrs -: prelim blood csx2 and csf gram stain are -ve, UA is -ve for inf -: cxr shows no infiltrate but has right hemidiaphragm elevated ?chronic -: will dc antibiotics in am if he remains afebrile -: [facility] help to obtain home med list, unclear baseline cognition * . ck, cmp and cbc levels today and in am Will likely need inpt psych hospitalization May have 1:1 sitter (was suicidal and homicidal prior to arrival?) Hopefully by am he will be able to respond better with hydration. Will talk to son later today and get more info Review of Systems - Medications/Allergies Allergies/Adverse Reactions: Allergies Allergy/AdvReac Type Severity Reaction Status Date / Time No Known Drug Allergies Allergy Verified 01/17/18 23:28 Medications: Current Medications Acetaminophen (Tylenol Er (8hr Arthritis Pain)) 650 mg PO Q4H PRN PRN Reason: Pain Amlodipine Besylate (Norvasc) 10 mg PO DAILY [facility] Last Admin: 01/18/18 09:04 Dose: 10 mg Clonidine (Catapres) 0.1 mg PO TID PRN PRN Reason: Hypertension Clopidogrel Bisulfate (Plavix) 75 mg PO DAILY [facility] Last Admin: 01/18/18 09:05 Dose: 75 mg Dextrose/Water (Dextrose 50%) 25 gm SLOW IVP PRN PRN PRN Reason: Hypoglycemia Divalproex Sodium (Depakote Er) 500 mg PO HS [facility] Divalproex Sodium (Depakote Er) 250 mg PO DAILY [facility] Last Admin: 01/18/18 09:23 Dose: 250 mg Docusate Sodium (Colace) 100 mg PO DAILY PRN PRN Reason: Constipation Famotidine (Pepcid) 20 mg PO DAILY [facility] Last Admin: 01/18/18 09:05 Dose: 20 mg Glucagon (Glucagon) 1 mg IM PRN PRN PRN Reason: Hypoglycemia Sodium Chloride (Normal Saline 0.9%) 1,000 mls @ 150 mls/hr IV .Q6H40M [facility] Last Admin: 01/18/18 09:01 Dose: 1,000 mls Vancomycin HCl 1 gm/ Device 200 mls @ 200 mls/hr IVPB Q12HR [facility] Last Admin: 01/18/18 09:04 Dose: 200 mls Dextrose/Water (D5w) 1,000 mls @ 0 mls/hr IV .Q0M PRN; As Directed PRN Reason: Hypoglycemia Cefepime HCl 2 gm/ Sodium (Chloride) 100 mls @ 200 mls/hr IVPB 0200,1400 [facility] Last Admin: 01/18/18 01:19 Dose: 100 mls Insulin Human Regular (Humulin R) 0 units SC .MILD SLIDING SCALE PRN PRN Reason: Mild Correctional Scale
[2018-01-18 12:36] LABS: #Basophils 0.1 thou/uL (0.0-0.2); #Eosinphils 0.1 thou/uL (0.0-0.7); #Lymphocytes 2.6 thou/uL (1.20-3.40); #Monocytes 0.8 thou/uL (0.11-0.59); #Neutrophils 5.4 thou/uL (1.40-6.50); %Basophils 1.1 % (0.0-1.0); %Lymphocytes 28.6 % (21.0-51.0); %Monocytes 9.1 % (0.0-10.0); %Neutrophils 60.1 % (42.0-75.0); Hemoglobin 16.1 g/dL (14.0-18.0); Mean Corpuscular Hemoglobin 30.7 pg (27.0-31.0); Mean Corpuscular Volume 90.2 fL (78.0-98.0); Mean Platelet Volume 6.8 fL (7.4-10.4); Platelet Count 251 thou/uL (130-400); RBC Distribution Width 11.8 % (11.5-14.5); Red Blood Cell (RBC) Count 5.26 mill/uL (4.70-6.10)
[2018-01-18 12:56] LABS: Lactic Acid 1.5 mmol/L (0.5-2.2)
[2018-01-18 13:04] LABS: ALT (SGPT) 45 U/L (8-55); AST (SGOT) 43 U/L (5-34); Albumin 4.1 g/dL (3.5-5.0); Alkaline Phosphatase 109 U/L (40-150); Anion Gap 16 mmol/L (10-20); BUN (Urea Nitrogen) 26 mg/dL (8.4-25.7); Bilirubin, Total 1.3 mg/dL (0.2-1.2); CK (CPK) 971 U/L (30-200); Calc. Creatinine Clearance 97 mL/min (70-130); Calcium 9.5 mg/dL (7.8-10.44); Carbon Dioxide 21 mmol/L (22-29); Chloride 106 mmol/L (98-107); Estimated GFR-MDRD 71; Globulin 3.7 g/dL (2.4-3.5); Glucose 175 mg/dL (70-105); Protein, Total 7.8 g/dL (6.0-8.3); Sodium 139 mmol/L (136-145)
[2018-01-18] MEDS: Insulin Regular 300 UNITS/3 ML VIAL SC PRN (13:20)
[2018-01-18] MEDS: Famotidine 20 MG TAB PO SCH (20:29)
[2018-01-19] MEDS: Cefepime 2 GM in Sodium Chloride 0.9% 100 ML IVPB SCH (01:46)
[2018-01-19] MEDS: Sodium Chloride 0.9% 1,000 ML IV SCH ×2 (04:06→07:35)
[2018-01-19 05:11] LABS: #Eosinphils 0.3 thou/uL (0.0-0.7); #Lymphocytes 1.9 thou/uL (1.20-3.40); #Monocytes 0.7 thou/uL (0.11-0.59); #Neutrophils 3.7 thou/uL (1.40-6.50); %Basophils 0.5 % (0.0-1.0); %Eosinophils 3.9 % (0.0-10.0); %Lymphocytes 28.7 % (21.0-51.0); %Monocytes 11.1 % (0.0-10.0); %Neutrophils 55.7 % (42.0-75.0); Mean Corpuscular HGB CONC 33.6 g/dL (32.0-36.0); Mean Corpuscular Hemoglobin 30.3 pg (27.0-31.0); Mean Corpuscular Volume 90.2 fL (78.0-98.0); Mean Platelet Volume 6.8 fL (7.4-10.4); Platelet Count 195 thou/uL (130-400); RBC Distribution Width 11.6 % (11.5-14.5); Red Blood Cell (RBC) Count 4.97 mill/uL (4.70-6.10); White Blood Cell (WBC) Count 6.6 thou/uL (4.8-10.8)
[2018-01-19 05:41] LABS: ALT (SGPT) 44 U/L (8-55); AST (SGOT) 40 U/L (5-34); Albumin 3.7 g/dL (3.5-5.0); Alkaline Phosphatase 100 U/L (40-150); Anion Gap 13 mmol/L (10-20); BUN (Urea Nitrogen) 21 mg/dL (8.4-25.7); Bilirubin, Total 1.4 mg/dL (0.2-1.2); CK (CPK) 603 U/L (30-200); Calc. Creatinine Clearance 117 mL/min (70-130); Carbon Dioxide 24 mmol/L (22-29); Chloride 108 mmol/L (98-107); Estimated GFR-MDRD 88; Globulin 3.2 g/dL (2.4-3.5); Glucose 139 mg/dL (70-105); Potassium 3.6 mmol/L (3.5-5.1); Protein, Total 6.9 g/dL (6.0-8.3); Sodium 141 mmol/L (136-145)
[2018-01-19 08:40] LABS: Vancomycin, Trough 8.4 ug/mL
[2018-01-19] MEDS: Benztropine 1 MG TAB PO SCH (09:36)
[2018-01-19] MEDS: Amlodipine 10 MG TAB PO SCH (09:36)
[2018-01-19] MEDS: Clopidogrel Bisulfate 75 MG TAB PO SCH (09:36)
[2018-01-19] MEDS: Famotidine 20 MG TAB PO SCH ×2 (09:36→20:27)
--- NOTE | 2018-01-19 10:21 | PDOC.PN ---
- Subjective Encounter Start Date: 01/19/18 Encounter Start Time: 08:30 Subjective: awake, ate his breakfast -: not communicating much this am -: walked 80ft with PT yesterday - Objective MAR Reviewed: Yes Vital Signs & Weight: Vital Signs (12 hours) Temp Pulse Resp BP Pulse Ox 01/19/18 08:35 98.9 F 98 20 138/82 92 L 01/19/18 03:45 98.8 F 98 21 H 144/87 H 94 L 01/18/18 23:25 98.4 F 87 20 168/88 H 93 L Weight Weight 200 lb 11.2 oz I&O: 01/18/18 01/19/18 01/20/18 06:59 06:59 06:59 Intake Total 4139 Balance 4139 Result Diagrams: 01/19/18 04:49 01/19/18 04:49 Additional Labs: Accuchecks 01/19/18 01/18/18 01/18/18 06:09 20:57 17:05 POC Glucose 127 H 148 H 160 H 01/18/18 11:08 POC Glucose 214 H Phys Exam - Physical Examination HEENT: PERRLA, moist MMs Neck: no JVD, supple Respiratory: no wheezing, no rales Cardiovascular: no significant murmur, irregular Gastrointestinal: soft, non-tender, positive bowel sounds Musculoskeletal: no edema, pulses present Neurological: non-focal, moves all 4 limbs Dx/Plan (1) Acute encephalopathy Code(s): G93.40 - ENCEPHALOPATHY, UNSPECIFIED Status: Acute (2) Rhabdomyolysis Code(s): M62.82 - RHABDOMYOLYSIS Status: Acute (3) Sepsis Code(s): A41.9 - SEPSIS, UNSPECIFIED ORGANISM Status: Ruled-out Qualifiers: Sepsis type: sepsis due to unspecified organism Qualified Code(s): A41.9 - Sepsis, unspecified organism (4) Schizoaffective disorder Code(s): F25.9 - SCHIZOAFFECTIVE DISORDER, UNSPECIFIED Status: Chronic Qualifiers: Schizoaffective disorder type: unspecified Qualified Code(s): F25.9 - Schizoaffective disorder, unspecified (5) Diabetes type 2, controlled Code(s): E11.9 - TYPE 2 DIABETES MELLITUS WITHOUT COMPLICATIONS Status: Chronic Qualifiers: Diabetes mellitus skilled nursing insulin use: without skilled nursing use Diabetes mellitus complication status: with unspecified complications Qualified Code(s) : E11.8 - Type 2 diabetes mellitus with unspecified complications Comment: accuchecks, insulin sliding scale (6) Hypertension Code(s): I10 - ESSENTIAL (PRIMARY) HYPERTENSION Status: Chronic Qualifiers: Hypertension type: essential hypertension Qualified Code(s): I10 - Essential (primary) hypertension Comment: Stable (7) Obesity (BMI 30-39.9) Code(s): E66.9 - OBESITY, UNSPECIFIED Status: Chronic - Plan has afib/flutter on telemetry, will add cardizem cd 120mg bid, asp -: echo, dc norvasc, cefepime and vanc, add omnicef -: vaca cultures are -ve -: ck levels down to 603, no focal signs on clinical exam -: add geodon 20mg QHS with cogentin to depakote * . Needs in psychiatric facility, [facility] to start working towards the same. to ambulate as tolerated, has 1:1 sitter due to homicidal/suicidal ideation on arrival, none here so far, doesn't talk much to know anything. Review of Systems - Medications/Allergies Allergies/Adverse Reactions: Allergies Allergy/AdvReac Type Severity Reaction Status Date / Time No Known Drug Allergies Allergy Verified 01/17/18 23:28 Medications: Current Medications Acetaminophen (Tylenol Er (8hr Arthritis Pain)) 650 mg PO Q4H PRN PRN Reason: Pain Benztropine Mesylate (Cogentin) 1 mg PO DAILY [facility] Last Admin: 01/19/18 09:36 Dose: 1 mg Cefdinir (Omnicef) 300 mg PO BID [facility] Clonidine (Catapres) 0.1 mg PO TID PRN PRN Reason: Hypertension Clopidogrel Bisulfate (Plavix) 75 mg PO DAILY [facility] Last Admin: 01/19/18 09:36 Dose: 75 mg Dextrose/Water (Dextrose 50%) 25 gm SLOW IVP PRN PRN PRN Reason: Hypoglycemia Diltiazem HCl (Cardizem Cd) 120 mg PO BID [facility] Divalproex Sodium (Depakote Er) 500 mg PO HS [facility] Last Admin: 01/18/18 20:29 Dose: 500 mg Divalproex Sodium (Depakote Er) 250 mg PO DAILY [facility] Last Admin: 01/18/18 09:23 Dose: 250 mg Docusate Sodium (Colace) 100 mg PO DAILY PRN PRN Reason: Constipation Famotidine (Pepcid) 20 mg PO BID [facility] Last Admin: 01/19/18 09:36 Dose: 20 mg Glucagon (Glucagon) 1 mg IM PRN PRN PRN Reason: Hypoglycemia Dextrose/Water (D5w) 1,000 mls @ 0 mls/hr IV .Q0M PRN; As Directed PRN Reason: Hypoglycemia Insulin Human Regular (Humulin R) 0 units SC .MILD SLIDING SCALE PRN PRN Reason: Mild Correctional Scale Last Admin: 01/18/18 13:20 Dose: 3 unit Sodium Chloride (Flush - Normal Saline) 10 ml IVF Q12HR [facility] Last Admin: 01/19/18 09:36 Dose: 10 ml Sodium Chloride (Flush - Normal Saline) 10 ml IVF PRN PRN PRN Reason: Saline Flush Ziprasidone (Geodon) 20 mg PO HS [facility]
[2018-01-19] MEDS ORDERED: Furosemide 20 MG TAB PO SCH (10:30)
[2018-01-19] MEDS: Cefdinir 300 MG CAP PO SCH (20:27)
[2018-01-19] MEDS: Ziprasidone 20 MG CAP PO SCH (20:28)
[2018-01-20] MEDS: Benztropine 1 MG TAB PO SCH (11:57)
[2018-01-20] MEDS: Cefdinir 300 MG CAP PO SCH ×2 (11:57→22:27)
[2018-01-20] MEDS: Aspirin 325 MG TAB PO SCH (11:57)
[2018-01-20] MEDS: Famotidine 20 MG TAB PO SCH ×2 (11:58→22:28)
[2018-01-20] MEDS: Clopidogrel Bisulfate 75 MG TAB PO SCH (11:58)
--- NOTE | 2018-01-20 12:22 | PDOC.PN ---
- Subjective Encounter Start Date: 01/20/18 Encounter Start Time: 10:30 Subjective: awake, is closing his eyes and blinking rapidly -: not in distress -: sitter at bedside - Objective MAR Reviewed: Yes Vital Signs & Weight: Vital Signs (12 hours) Temp Pulse Resp BP Pulse Ox 01/20/18 08:00 97.1 F L 85 16 136/91 H 93 L 01/20/18 03:17 97.5 F L 85 17 116/71 93 L Weight Weight 197 lb 9.6 oz I&O: 01/19/18 01/20/18 01/21/18 06:59 06:59 06:59 Intake Total 4139 1384 Balance 4139 1384 Result Diagrams: 01/19/18 04:49 01/19/18 04:49 Additional Labs: Accuchecks 01/20/18 01/19/18 01/19/18 05:47 20:37 17:10 POC Glucose 129 H 203 H 151 H Phys Exam - Physical Examination HEENT: PERRLA, moist MMs Neck: no JVD, supple Respiratory: no wheezing, no rales Cardiovascular: RRR, no significant murmur Gastrointestinal: soft, no distention, positive bowel sounds Musculoskeletal: no edema, pulses present Neurological: non-focal, moves all 4 limbs Dx/Plan (1) Acute encephalopathy Code(s): G93.40 - ENCEPHALOPATHY, UNSPECIFIED Status: Acute Comment: sec to psychosis (2) Rhabdomyolysis Code(s): M62.82 - RHABDOMYOLYSIS Status: Acute Comment: resoving (3) Sepsis Code(s): A41.9 - SEPSIS, UNSPECIFIED ORGANISM Status: Ruled-out Qualifiers: Sepsis type: sepsis due to unspecified organism Qualified Code(s): A41.9 - Sepsis, unspecified organism (4) Schizoaffective disorder Code(s): F25.9 - SCHIZOAFFECTIVE DISORDER, UNSPECIFIED Status: Chronic Qualifiers: Schizoaffective disorder type: unspecified Qualified Code(s): F25.9 - Schizoaffective disorder, unspecified (5) Diabetes type 2, controlled Code(s): E11.9 - TYPE 2 DIABETES MELLITUS WITHOUT COMPLICATIONS Status: Chronic Qualifiers: Diabetes mellitus terminal operator insulin use: without terminal operator use Diabetes mellitus complication status: with unspecified complications Qualified Code(s) : E11.8 - Type 2 diabetes mellitus with unspecified complications Comment: accuchecks, insulin sliding scale (6) Hypertension Code(s): I10 - ESSENTIAL (PRIMARY) HYPERTENSION Status: Chronic Qualifiers: Hypertension type: essential hypertension Qualified Code(s): I10 - Essential (primary) hypertension Comment: Stable (7) Obesity (BMI 30-39.9) Code(s): E66.9 - OBESITY, UNSPECIFIED Status: Chronic (8) Afib Code(s): I48.91 - UNSPECIFIED ATRIAL FIBRILLATION Status: Chronic Qualifiers: Atrial fibrillation type: chronic Qualified Code(s): I48.2 - Chronic atrial fibrillation - Plan hemostable -: tx to medical floor -: to do MRI brain for completion sake to r/o organic issue -: needs inpt psychiatric unit, has no health insurance now -: [facility] is working on placement * . started geodon from last night with cogentin. may dc omnicef on discharge is on cardizem CD 120mg bid for chronic afib/flutter which is rate controlled Echo shows good ef. Ambulated 180ft day before yesterday, to mobilize as tolerated, oob to chair etc. sitter for h/o suicidal ideation prior to arrival. Review of Systems - Medications/Allergies Allergies/Adverse Reactions: Allergies Allergy/AdvReac Type Severity Reaction Status Date / Time No Known Drug Allergies Allergy Verified 01/17/18 23:28 Medications: Current Medications Acetaminophen (Tylenol Er (8hr Arthritis Pain)) 650 mg PO Q4H PRN PRN Reason: Pain Aspirin (Aspirin) 325 mg PO DAILY [facility] Last Admin: 01/20/18 11:57 Dose: Not Given Benztropine Mesylate (Cogentin) 1 mg PO DAILY [facility] Last Admin: 01/20/18 11:57 Dose: Not Given Cefdinir (Omnicef) 300 mg PO BID [facility] Last Admin: 01/20/18 11:57 Dose: Not Given Clonidine (Catapres) 0.1 mg PO TID PRN PRN Reason: Hypertension Clopidogrel Bisulfate (Plavix) 75 mg PO DAILY [facility] Last Admin: 01/20/18 11:58 Dose: Not Given Dextrose/Water (Dextrose 50%) 25 gm SLOW IVP PRN PRN PRN Reason: Hypoglycemia Diltiazem HCl (Cardizem Cd) 120 mg PO BID [facility] Last Admin: 01/20/18 11:58 Dose: Not Given Divalproex Sodium (Depakote Er) 500 mg PO HS [facility] Last Admin: 01/19/18 20:27 Dose: 500 mg Divalproex Sodium (Depakote Er) 250 mg PO DAILY [facility] Last Admin: 01/20/18 11:58 Dose: Not Given Docusate Sodium (Colace) 100 mg PO DAILY PRN PRN Reason: Constipation Famotidine (Pepcid) 20 mg PO BID [facility] Last Admin: 01/20/18 11:58 Dose: Not Given Glucagon (Glucagon) 1 mg IM PRN PRN PRN Reason: Hypoglycemia Dextrose/Water (D5w) 1,000 mls @ 0 mls/hr IV .Q0M PRN; As Directed PRN Reason: Hypoglycemia Insulin Human Regular (Humulin R) 0 units SC .MILD SLIDING SCALE PRN PRN Reason: Mild Correctional Scale Last Admin: 01/18/18 13:20 Dose: 3 unit Sodium Chloride (Flush - Normal Saline) 10 ml IVF Q12HR [facility] Last Admin: 01/20/18 09:15 Dose: 10 ml Sodium Chloride (Flush - Normal Saline) 10 ml IVF PRN PRN PRN Reason: Saline Flush Ziprasidone (Geodon) 20 mg PO HS [facility] Last Admin: 01/19/18 20:28 Dose: 20 mg
[2018-01-20 13:06] LABS: Anion Gap 12 mmol/L (10-20); BUN (Urea Nitrogen) 21 mg/dL (8.4-25.7); CK (CPK) 310 U/L (30-200); Calc. Creatinine Clearance 108 mL/min (70-130); Calcium 9.3 mg/dL (7.8-10.44); Carbon Dioxide 25 mmol/L (22-29); Chloride 106 mmol/L (98-107); Estimated GFR-MDRD 81; Glucose 149 mg/dL (70-105); Potassium 3.9 mmol/L (3.5-5.1); Sodium 139 mmol/L (136-145)
[2018-01-20 17:13] LABS: West Nile Virus IgG Ab - CSF Negative (Negative); West Nile Virus IgM Ab - CSF Negative (Negative)
[2018-01-20] MEDS: Ziprasidone 20 MG CAP PO SCH (22:28)
[2018-01-21 05:53] LABS: Anion Gap 12 mmol/L (10-20); BUN (Urea Nitrogen) 26 mg/dL (8.4-25.7); CK (CPK) 216 U/L (30-200); Calc. Creatinine Clearance 98 mL/min (70-130); Calcium 9.7 mg/dL (7.8-10.44); Carbon Dioxide 26 mmol/L (22-29); Chloride 108 mmol/L (98-107); Estimated GFR-MDRD 73; Glucose 136 mg/dL (70-105); Sodium 142 mmol/L (136-145)
[2018-01-21] MEDS: Aspirin 325 MG TAB PO SCH (09:00)
[2018-01-21] MEDS: Cefdinir 300 MG CAP PO SCH ×2 (09:01→20:03)
[2018-01-21] MEDS: Benztropine 1 MG TAB PO SCH (09:01)
[2018-01-21] MEDS: Clopidogrel Bisulfate 75 MG TAB PO SCH (09:01)
[2018-01-21] MEDS: Famotidine 20 MG TAB PO SCH ×2 (09:02→20:03)
[2018-01-21] MEDS: cloNIDine 0.1mg/24 Hour PATCH TD SCH (10:15)
--- NOTE | 2018-01-21 15:07 | PDOC.PN ---
- Subjective Encounter Start Date: 01/21/18 Encounter Start Time: 07:40 Pt seen for followup re: acute encephalopathy. Pt not speaking, unable to complete ROS. - Objective MAR Reviewed: Yes Vital Signs & Weight: Vital Signs (12 hours) Temp Pulse Resp BP Pulse Ox 01/21/18 09:01 99 01/21/18 08:01 99 F 99 16 156/103 H 95 01/21/18 08:00 99 F 78 16 95 01/21/18 04:00 144/90 H Weight Weight 193 lb I&O: 01/20/18 01/21/18 01/22/18 06:59 06:59 06:59 Intake Total 1384 Balance 1384 Result Diagrams: 01/19/18 04:49 01/21/18 05:09 Additional Labs: Accuchecks 01/21/18 01/21/18 01/21/18 11:54 04:52 00:23 POC Glucose 135 H 125 H 112 H 01/20/18 01/20/18 01/20/18 19:18 16:20 10:47 POC Glucose 114 H 124 H 141 H Labs reviewed by me Phys Exam - Physical Examination Constitutional: NAD HEENT: moist MMs, sclera anicteric, oral pharynx no lesions, 2+ tonsils Neck: no nodes, no JVD, supple, full ROM Respiratory: no wheezing, no rales, no rhonchi, clear to auscultation bilateral Cardiovascular: RRR, no rub S1, S2 Gastrointestinal: soft, non-tender, no distention, positive bowel sounds Neurological: moves all 4 limbs Psychiatric: normal affect Deviation from normal: Unable to assess orientation to person, place or time Dx/Plan (1) Acute encephalopathy Code(s): G93.40 - ENCEPHALOPATHY, UNSPECIFIED Status: Acute Comment: Improving (2) Rhabdomyolysis Code(s): M62.82 - RHABDOMYOLYSIS Status: Acute Comment: CK improving (3) Bipolar disorder Code(s): F31.9 - BIPOLAR DISORDER, UNSPECIFIED Status: Chronic Comment: await [facility] evrosi (4) Diabetes type 2, controlled Code(s): E11.9 - TYPE 2 DIABETES MELLITUS WITHOUT COMPLICATIONS Status: Chronic Qualifiers: Diabetes mellitus longterm insulin use: without longterm use Diabetes mellitus complication status: with unspecified complications Qualified Code(s) : E11.8 - Type 2 diabetes mellitus with unspecified complications Comment: continue accuchecks, insulin sliding scale (5) Hypertension Code(s): I10 - ESSENTIAL (PRIMARY) HYPERTENSION Status: Chronic Qualifiers: Hypertension type: essential hypertension Qualified Code(s): I10 - Essential (primary) hypertension Comment: controlled - Plan * . Review of Systems - Medications/Allergies Allergies/Adverse Reactions: Allergies Allergy/AdvReac Type Severity Reaction Status Date / Time No Known Drug Allergies Allergy Verified 01/17/18 23:28 Medications: Current Medications Acetaminophen (Tylenol Er (8hr Arthritis Pain)) 650 mg PO Q4H PRN PRN Reason: Pain Aspirin (Aspirin) 325 mg PO DAILY [facility] Last Admin: 01/21/18 09:00 Dose: Not Given Benztropine Mesylate (Cogentin) 1 mg PO DAILY [facility] Last Admin: 01/21/18 09:01 Dose: Not Given Cefdinir (Omnicef) 300 mg PO BID [facility] Last Admin: 01/21/18 09:01 Dose: Not Given Clonidine (Catapres) 0.1 mg PO TID PRN PRN Reason: Hypertension Clonidine (Rxakrfsv-Fbk-5 Patch) 0.1 mg TD Q7D [facility] Last Admin: 01/21/18 10:15 Dose: 0.1 mg Clopidogrel Bisulfate (Plavix) 75 mg PO DAILY [facility] Last Admin: 01/21/18 09:01 Dose: Not Given Dextrose/Water (Dextrose 50%) 25 gm SLOW IVP PRN PRN PRN Reason: Hypoglycemia Diltiazem HCl (Cardizem Cd) 120 mg PO BID [facility] Last Admin: 01/21/18 09:01 Dose: Not Given Divalproex Sodium (Depakote Er) 500 mg PO HS [facility] Last Admin: 01/20/18 22:28 Dose: Not Given Divalproex Sodium (Depakote Er) 250 mg PO DAILY [facility] Last Admin: 01/21/18 09:02 Dose: Not Given Docusate Sodium (Colace) 100 mg PO DAILY PRN PRN Reason: Constipation Famotidine (Pepcid) 20 mg PO BID [facility] Last Admin: 01/21/18 09:02 Dose: Not Given Glucagon (Glucagon) 1 mg IM PRN PRN PRN Reason: Hypoglycemia Dextrose/Water (D5w) 1,000 mls @ 0 mls/hr IV .Q0M PRN; As Directed PRN Reason: Hypoglycemia Insulin Human Regular (Humulin R) 0 units SC .MILD SLIDING SCALE PRN PRN Reason: Mild Correctional Scale Last Admin: 01/18/18 13:20 Dose: 3 unit Sodium Chloride (Flush - Normal Saline) 10 ml IVF Q12HR [facility] Last Admin: 01/21/18 09:02 Dose: 10 ml Sodium Chloride (Flush - Normal Saline) 10 ml IVF PRN PRN PRN Reason: Saline Flush Ziprasidone (Geodon) 20 mg PO HS [facility] Last Admin: 01/20/18 22:28 Dose: Not Given
[2018-01-21] MEDS: Sodium Chloride 0.9% 1,000 ML IV SCH (18:33)
[2018-01-21] MEDS: Ziprasidone 20 MG CAP PO SCH (20:03)
[2018-01-22] MEDS: Sodium Chloride 0.9% 1,000 ML IV SCH ×2 (06:15→12:52)
[2018-01-22] MEDS: Cefdinir 300 MG CAP PO SCH ×2 (08:13→20:49)
[2018-01-22] MEDS: Aspirin 325 MG TAB PO SCH (08:13)
[2018-01-22] MEDS: Famotidine 20 MG TAB PO SCH ×2 (08:14→20:50)
[2018-01-22] MEDS: Benztropine 1 MG TAB PO SCH (08:14)
[2018-01-22] MEDS: Clopidogrel Bisulfate 75 MG TAB PO SCH (08:15)
[2018-01-22] MEDS ORDERED: Aspirin 300 MG Suppository PR SCH (11:45)
[2018-01-22] MEDS ORDERED: Valproate Sodium 250 MG in Sodium Chloride 0.9% 100 ML IVPB SCH (11:45)
--- NOTE | 2018-01-22 15:09 | PDOC.PN ---
- Subjective Encounter Start Date: 01/22/18 Encounter Start Time: 10:40 Pt seen for followup re: acute encephalopathy. Pt is nonverbal, unable to complete ROS. - Objective MAR Reviewed: Yes Vital Signs & Weight: Vital Signs (12 hours) Temp Pulse Resp BP BP BP Pulse Ox 01/22/18 11:30 98.6 F 101 H 18 164/104 H 92 L 01/22/18 08:14 80 145/94 H 01/22/18 08:02 97.8 F 80 20 95 01/22/18 08:00 97.8 F 80 20 145/94 H 95 01/22/18 03:53 98.5 F 96 20 147/99 H 92 L Weight Weight 191 lb I&O: 01/21/18 01/22/18 01/23/18 06:59 06:59 06:59 Intake Total 1200 Balance 1200 Result Diagrams: 01/19/18 04:49 01/21/18 05:09 Additional Labs: Accuchecks 01/22/18 01/22/18 01/22/18 10:45 08:22 06:19 POC Glucose 119 H 127 H 121 H 01/21/18 01/21/18 21:09 16:31 POC Glucose 118 H 125 H Labs reviewed by me Phys Exam - Physical Examination Constitutional: NAD HEENT: moist MMs, sclera anicteric, oral pharynx no lesions, 2+ tonsils Neck: no nodes, no JVD, supple, full ROM Respiratory: no wheezing, no rales, no rhonchi, clear to auscultation bilateral Cardiovascular: RRR, no rub S1, S2 Gastrointestinal: soft, non-tender, no distention, positive bowel sounds Neurological: moves all 4 limbs Psychiatric: normal affect Dx/Plan (1) Acute encephalopathy Code(s): G93.40 - ENCEPHALOPATHY, UNSPECIFIED Status: Acute Comment: Improving, continue Geodon (2) Rhabdomyolysis Code(s): M62.82 - RHABDOMYOLYSIS Status: Acute Comment: Improving (3) Bipolar disorder Code(s): F31.9 - BIPOLAR DISORDER, UNSPECIFIED Status: Chronic Comment: await [facility] eval (4) Diabetes type 2, controlled Code(s): E11.9 - TYPE 2 DIABETES MELLITUS WITHOUT COMPLICATIONS Status: Chronic Qualifiers: Diabetes mellitus middle or intermediate school principal insulin use: without senior living use Diabetes mellitus complication status: with unspecified complications Qualified Code(s) : E11.8 - Type 2 diabetes mellitus with unspecified complications Comment: on accuchecks, insulin sliding scale (5) Hypertension Code(s): I10 - ESSENTIAL (PRIMARY) HYPERTENSION Status: Chronic Qualifiers: Hypertension type: essential hypertension Qualified Code(s): I10 - Essential (primary) hypertension Comment: controlled - Plan * . Review of Systems - Medications/Allergies Allergies/Adverse Reactions: Allergies Allergy/AdvReac Type Severity Reaction Status Date / Time No Known Drug Allergies Allergy Verified 01/17/18 23:28 Medications: Current Medications Acetaminophen (Tylenol Er (8hr Arthritis Pain)) 650 mg PO Q4H PRN PRN Reason: Pain Aspirin (Aspirin) 300 mg [place] DAILY [facility] Benztropine Mesylate (Cogentin) 1 mg PO DAILY [facility] Last Admin: 01/22/18 08:14 Dose: Not Given Cefdinir (Omnicef) 300 mg PO BID [facility] Last Admin: 01/22/18 08:13 Dose: Not Given Clonidine (Catapres) 0.1 mg PO TID PRN PRN Reason: Hypertension Clonidine (Kaqijysh-Zfh-6 Patch) 0.1 mg TD Q7D [facility] Last Admin: 01/21/18 10:15 Dose: 0.1 mg Clopidogrel Bisulfate (Plavix) 75 mg PO DAILY [facility] Last Admin: 01/22/18 08:15 Dose: Not Given Dextrose/Water (Dextrose 50%) 25 gm SLOW IVP PRN PRN PRN Reason: Hypoglycemia Diltiazem HCl (Cardizem Cd) 120 mg PO BID [facility] Last Admin: 01/22/18 08:14 Dose: Not Given Docusate Sodium (Colace) 100 mg PO DAILY PRN PRN Reason: Constipation Famotidine (Pepcid) 20 mg PO BID [facility] Last Admin: 01/22/18 08:14 Dose: Not Given Glucagon (Glucagon) 1 mg IM PRN PRN PRN Reason: Hypoglycemia Dextrose/Water (D5w) 1,000 mls @ 0 mls/hr IV .Q0M PRN; As Directed PRN Reason: Hypoglycemia Sodium Chloride (Normal Saline 0.9%) 1,000 mls @ 100 mls/hr IV .Q10H [facility] Last Admin: 01/22/18 12:52 Dose: 1,000 mls Valproic Acid 250 mg/ Sodium (Chloride) 102.5 mls @ 205 mls/hr IVPB QAM [facility] Valproic Acid 500 mg/ Sodium (Chloride) 105 mls @ 210 mls/hr IVPB HS [facility] Insulin Human Regular (Humulin R) 0 units SC .MILD SLIDING SCALE PRN PRN Reason: Mild Correctional Scale Last Admin: 01/18/18 13:20 Dose: 3 unit Sodium Chloride (Flush - Normal Saline) 10 ml IVF Q12HR [facility] Last Admin: 01/22/18 08:15 Dose: 10 ml Sodium Chloride (Flush - Normal Saline) 10 ml IVF PRN PRN PRN Reason: Saline Flush Ziprasidone (Geodon) 20 mg PO HS [facility] Last Admin: 01/21/18 20:03 Dose: Not Given
[2018-01-22] MEDS: Dextrose 5 % And 0.9 % NaCl 1,000 ML IV SCH (17:05)
[2018-01-22] MEDS: Ziprasidone 20 MG CAP PO SCH (20:50)
[2018-01-22] MEDS: Valproate Sodium 500 MG in Sodium Chloride 0.9% 100 ML IVPB SCH (20:53)
[2018-01-23] MEDS: Dextrose 5 % And 0.9 % NaCl 1,000 ML IV SCH ×2 (04:12→15:01)
[2018-01-23 05:25] LABS: #Basophils 0.1 thou/uL (0.0-0.2); #Eosinphils 0.3 thou/uL (0.0-0.7); #Lymphocytes 2.9 thou/uL (1.20-3.40); #Monocytes 0.6 thou/uL (0.11-0.59); #Neutrophils 4.2 thou/uL (1.40-6.50); %Basophils 1.1 % (0.0-1.0); %Eosinophils 4.1 % (0.0-10.0); %Lymphocytes 35.2 % (21.0-51.0); %Monocytes 7.9 % (0.0-10.0); %Neutrophils 51.8 % (42.0-75.0); Hemoglobin 15.7 g/dL (14.0-18.0); Mean Corpuscular HGB CONC 34.1 g/dL (32.0-36.0); Mean Corpuscular Hemoglobin 30.5 pg (27.0-31.0); Mean Corpuscular Volume 89.6 fL (78.0-98.0); Platelet Count 268 thou/uL (130-400); RBC Distribution Width 11.7 % (11.5-14.5); Red Blood Cell (RBC) Count 5.15 mill/uL (4.70-6.10); White Blood Cell (WBC) Count 8.1 thou/uL (4.8-10.8)
[2018-01-23 05:36] LABS: Anion Gap 13 mmol/L (10-20); BUN (Urea Nitrogen) 25 mg/dL (8.4-25.7); CK (CPK) 150 U/L (30-200); Calc. Creatinine Clearance 105 mL/min (70-130); Calcium 9.1 mg/dL (7.8-10.44); Carbon Dioxide 23 mmol/L (22-29); Chloride 109 mmol/L (98-107); Estimated GFR-MDRD 82; Glucose 141 mg/dL (70-105); Potassium 3.7 mmol/L (3.5-5.1); Sodium 141 mmol/L (136-145)
[2018-01-23] MEDS: Valproate Sodium 250 MG in Sodium Chloride 0.9% 100 ML IVPB SCH (08:27)
[2018-01-23] MEDS: Benztropine 1 MG TAB PO SCH (08:28)
[2018-01-23] MEDS: Aspirin 300 MG Suppository PR SCH (08:28)
[2018-01-23] MEDS: Cefdinir 300 MG CAP PO SCH ×2 (08:28→20:19)
[2018-01-23] MEDS: Clopidogrel Bisulfate 75 MG TAB PO SCH (08:31)
[2018-01-23] MEDS: Famotidine 20 MG TAB PO SCH ×2 (08:31→20:20)
[2018-01-23] MEDS ORDERED: hydrALAZINE 20 MG/ML VIAL SLOW IVP PRN (09:38)
--- NOTE | 2018-01-23 18:33 | PDOC.PN ---
- Subjective Encounter Start Date: 01/23/18 Encounter Start Time: 12:00 Ptseen for followup re: acute encephalopathy. Not answering questions, unable to complete ROS. - Objective MAR Reviewed: Yes Vital Signs & Weight: Vital Signs (12 hours) Temp Pulse Resp BP BP BP Pulse Ox 01/23/18 15:18 98.6 F 86 20 144/95 H 98 01/23/18 12:19 97.9 F 85 20 144/92 H 95 01/23/18 12:00 97.6 F 100 22 H 153/92 H 94 L 01/23/18 08:24 98.8 F 91 20 163/103 H 95 01/23/18 07:33 98.8 F 98 20 154/115 H 91 L Weight Weight 194 lb I&O: 01/22/18 01/23/18 01/24/18 06:59 06:59 06:59 Intake Total 1200 1100 1000 Balance 1200 1100 1000 Result Diagrams: 01/23/18 04:25 01/23/18 04:25 Additional Labs: Accuchecks 01/23/18 01/23/18 01/22/18 11:21 05:01 19:52 POC Glucose 142 H 144 H 129 H Labs reviewed by me Phys Exam - Physical Examination Obese HEENT: moist MMs, sclera anicteric, oral pharynx no lesions, 2+ tonsils Neck: no nodes, no JVD, supple, full ROM Respiratory: clear to auscultation bilateral Cardiovascular: RRR, no rub S1, S2 Gastrointestinal: soft, non-tender, no distention, positive bowel sounds Neurological: moves all 4 limbs Deviation from normal: Unable to assess affect or orientation to person, place or time Dx/Plan (1) Acute encephalopathy Code(s): G93.40 - ENCEPHALOPATHY, UNSPECIFIED Status: Acute Comment: continue Marta (2) Bipolar disorder Code(s): F31.9 - BIPOLAR DISORDER, UNSPECIFIED Status: Chronic Comment: await [facility] melissa (3) Diabetes type 2, controlled Code(s): E11.9 - TYPE 2 DIABETES MELLITUS WITHOUT COMPLICATIONS Status: Chronic Qualifiers: Diabetes mellitus long-term insulin use: without long-term use Diabetes mellitus complication status: with unspecified complications Qualified Code(s) : E11.8 - Type 2 diabetes mellitus with unspecified complications Comment: on accuchecks, insulin sliding scale (4) Hypertension Code(s): I10 - ESSENTIAL (PRIMARY) HYPERTENSION Status: Chronic Qualifiers: Hypertension type: essential hypertension Qualified Code(s): I10 - Essential (primary) hypertension Comment: controlled (5) Rhabdomyolysis Code(s): M62.82 - RHABDOMYOLYSIS Status: Resolved - Plan * . Review of Systems - Medications/Allergies Allergies/Adverse Reactions: Allergies Allergy/AdvReac Type Severity Reaction Status Date / Time No Known Drug Allergies Allergy Verified 01/17/18 23:28 Medications: Current Medications Acetaminophen (Tylenol Er (8hr Arthritis Pain)) 650 mg PO Q4H PRN PRN Reason: Pain Aspirin (Aspirin) 300 mg [place] DAILY [facility] Last Admin: 01/23/18 08:28 Dose: 300 mg Benztropine Mesylate (Cogentin) 1 mg PO DAILY [facility] Last Admin: 01/23/18 08:28 Dose: Not Given Cefdinir (Omnicef) 300 mg PO BID [facility] Last Admin: 01/23/18 08:28 Dose: Not Given Clonidine (Catapres) 0.1 mg PO TID PRN PRN Reason: Hypertension Clonidine (Wluyygnz-Onh-0 Patch) 0.1 mg TD Q7D [facility] Last Admin: 01/21/18 10:15 Dose: 0.1 mg Clopidogrel Bisulfate (Plavix) 75 mg PO DAILY [facility] Last Admin: 01/23/18 08:31 Dose: Not Given Dextrose/Water (Dextrose 50%) 25 gm SLOW IVP PRN PRN PRN Reason: Hypoglycemia Diltiazem HCl (Cardizem Cd) 120 mg PO BID [facility] Last Admin: 01/23/18 08:30 Dose: Not Given Docusate Sodium (Colace) 100 mg PO DAILY PRN PRN Reason: Constipation Famotidine (Pepcid) 20 mg PO BID [facility] Last Admin: 01/23/18 08:31 Dose: Not Given Glucagon (Glucagon) 1 mg IM PRN PRN PRN Reason: Hypoglycemia Hydralazine HCl (Apresoline) 10 mg SLOW IVP Q6H PRN PRN Reason: SBP>170 Dextrose/Water (D5w) 1,000 mls @ 0 mls/hr IV .Q0M PRN; As Directed PRN Reason: Hypoglycemia Valproic Acid 250 mg/ Sodium (Chloride) 102.5 mls @ 205 mls/hr IVPB QAM [facility] Last Admin: 01/23/18 08:27 Dose: 102.5 mls Valproic Acid 500 mg/ Sodium (Chloride) 105 mls @ 210 mls/hr IVPB HS [facility] Last Admin: 01/22/18 20:53 Dose: 105 mls Dextrose/Sodium Chloride (D5 0.9% Ns) 1,000 mls @ 70 mls/hr IV .[id number] [facility] Last Admin: 01/23/18 15:01 Dose: 1,000 mls Insulin Human Regular (Humulin R) 0 units SC .MILD SLIDING SCALE PRN PRN Reason: Mild Correctional Scale Last Admin: 01/18/18 13:20 Dose: 3 unit Sodium Chloride (Flush - Normal Saline) 10 ml IVF Q12HR [facility] Last Admin: 01/23/18 08:32 Dose: Not Given Sodium Chloride (Flush - Normal Saline) 10 ml IVF PRN PRN PRN Reason: Saline Flush Ziprasidone (Geodon) 20 mg PO [facility] Last Admin: 01/22/18 20:50 Dose: Not Given
[2018-01-23] MEDS: Valproate Sodium 500 MG in Sodium Chloride 0.9% 100 ML IVPB SCH (20:24)
[2018-01-23] MEDS: Ziprasidone 20 MG CAP PO SCH (20:28)
[2018-01-24 05:21] LABS: Anion Gap 11 mmol/L (10-20); BUN (Urea Nitrogen) 22 mg/dL (8.4-25.7); Calc. Creatinine Clearance 97 mL/min (70-130); Calcium 9.3 mg/dL (7.8-10.44); Carbon Dioxide 27 mmol/L (22-29); Chloride 108 mmol/L (98-107); Estimated GFR-MDRD 73; Glucose 146 mg/dL (70-105); Potassium 3.7 mmol/L (3.5-5.1); Sodium 142 mmol/L (136-145)
[2018-01-24] MEDS: Dextrose 5 % And 0.9 % NaCl 1,000 ML IV SCH ×3 (05:21→22:25)
[2018-01-24 05:27] LABS: #Basophils 0.1 thou/uL (0.0-0.2); #Eosinphils 0.3 thou/uL (0.0-0.7); #Lymphocytes 2.8 thou/uL (1.20-3.40); #Monocytes 0.7 thou/uL (0.11-0.59); #Neutrophils 4.3 thou/uL (1.40-6.50); %Basophils 1.3 % (0.0-1.0); %Eosinophils 3.2 % (0.0-10.0); %Lymphocytes 34.4 % (21.0-51.0); %Monocytes 8.6 % (0.0-10.0); %Neutrophils 52.5 % (42.0-75.0); Hemoglobin 16.2 g/dL (14.0-18.0); Mean Corpuscular HGB CONC 34.3 g/dL (32.0-36.0); Mean Corpuscular Hemoglobin 30.6 pg (27.0-31.0); Mean Corpuscular Volume 89.3 fL (78.0-98.0); Mean Platelet Volume 7.2 fL (7.4-10.4); Platelet Count 268 thou/uL (130-400); RBC Distribution Width 11.8 % (11.5-14.5); White Blood Cell (WBC) Count 8.2 thou/uL (4.8-10.8)
[2018-01-24] MEDS: Aspirin 300 MG Suppository PR SCH (07:30)
[2018-01-24] MEDS: Valproate Sodium 250 MG in Sodium Chloride 0.9% 100 ML IVPB SCH (07:45)
[2018-01-24] MEDS: Clopidogrel Bisulfate 75 MG TAB PO SCH (07:47)
[2018-01-24] MEDS: Benztropine 1 MG TAB PO SCH (07:47)
[2018-01-24] MEDS: Cefdinir 300 MG CAP PO SCH (07:47)
[2018-01-24] MEDS: Famotidine 20 MG TAB PO SCH ×3 (07:48→19:58)
[2018-01-24] MEDS ORDERED: Labetalol HCl 100 MG/20 ML VIAL SLOW IVP PRN (09:22)
[2018-01-24] MEDS: Acetaminophen ER (8hr) 650 MG TAB PO PRN (10:34)
[2018-01-24] MEDS: Insulin Regular 300 UNITS/3 ML VIAL SC PRN (12:44)
--- NOTE | 2018-01-24 13:31 | PDOC.PN ---
- Subjective Encounter Start Date: 01/24/18 Encounter Start Time: 07:40 - Objective Vital Signs & Weight: Vital Signs (12 hours) Temp Pulse Resp BP BP BP Pulse Ox 01/24/18 11:49 76 18 152/105 H 97 01/24/18 07:48 83 157/110 H 01/24/18 07:45 98.8 F 80 20 93 L 01/24/18 07:15 98.8 F 83 18 160/120 H 93 L 01/24/18 04:00 98.8 F 89 18 158/66 H 96 Weight Weight 196 lb 9.6 oz I&O: 01/23/18 01/24/18 01/25/18 06:59 06:59 06:59 Intake Total 1100 1800 Balance 1100 1800 Result Diagrams: 01/24/18 04:01 01/24/18 04:01 Additional Labs: Accuchecks 01/24/18 01/24/18 01/23/18 11:51 04:35 19:42 POC Glucose 189 H 135 H 130 H 01/23/18 16:24 POC Glucose 132 H Dx/Plan (1) Acute encephalopathy Code(s): G93.40 - ENCEPHALOPATHY, UNSPECIFIED Status: Acute Comment: continue Marta (2) Bipolar disorder Code(s): F31.9 - BIPOLAR DISORDER, UNSPECIFIED Status: Chronic Comment: await [facility] melissa (3) Diabetes type 2, controlled Code(s): E11.9 - TYPE 2 DIABETES MELLITUS WITHOUT COMPLICATIONS Status: Chronic Qualifiers: Diabetes mellitus intermediate insulin use: without termite inspector use Diabetes mellitus complication status: with unspecified complications Qualified Code(s) : E11.8 - Type 2 diabetes mellitus with unspecified complications Comment: on accuchecks, insulin sliding scale (4) Hypertension Code(s): I10 - ESSENTIAL (PRIMARY) HYPERTENSION Status: Chronic Qualifiers: Hypertension type: essential hypertension Qualified Code(s): I10 - Essential (primary) hypertension Comment: controlled - Plan * .
--- NOTE | 2018-01-24 14:29 | PDOC.PN ---
- Subjective Encounter Start Date: 01/24/18 Encounter Start Time: 07:40 Pt seen for followup re: acute encephalopathy. Opening eyes but not interacting. Nonverbal, unable to complete ROS. - Objective MAR Reviewed: Yes Vital Signs & Weight: Vital Signs (12 hours) Temp Pulse Resp BP BP BP Pulse Ox 01/24/18 11:49 76 18 152/105 H 97 01/24/18 07:48 83 157/110 H 01/24/18 07:45 98.8 F 80 20 93 L 01/24/18 07:15 98.8 F 83 18 160/120 H 93 L 01/24/18 04:00 98.8 F 89 18 158/66 H 96 Weight Weight 196 lb 9.6 oz I&O: 01/23/18 01/24/18 01/25/18 06:59 06:59 06:59 Intake Total 1100 1800 Balance 1100 1800 Result Diagrams: 01/24/18 04:01 01/24/18 04:01 Additional Labs: Accuchecks 01/24/18 01/24/18 01/23/18 11:51 04:35 19:42 POC Glucose 189 H 135 H 130 H 01/23/18 16:24 POC Glucose 132 H labs reviewed by me Phys Exam - Physical Examination Obesity HEENT: moist MMs, sclera anicteric, oral pharynx no lesions, 2+ tonsils Neck: no nodes, no JVD, supple, full ROM Respiratory: no wheezing, no rales, no rhonchi, clear to auscultation bilateral Cardiovascular: RRR, no rub S1, S2 Gastrointestinal: soft, non-tender, no distention, positive bowel sounds Neurological: moves all 4 limbs Psychiatric: normal affect Deviation from normal: Unable to assess orientation to person, place or time Dx/Plan (1) Acute encephalopathy Code(s): G93.40 - ENCEPHALOPATHY, UNSPECIFIED Status: Acute Comment: Improving, continue Geodon (2) Bipolar disorder Code(s): F31.9 - BIPOLAR DISORDER, UNSPECIFIED Status: Chronic Comment: awaiting [facility] eval (3) Diabetes type 2, controlled Code(s): E11.9 - TYPE 2 DIABETES MELLITUS WITHOUT COMPLICATIONS Status: Chronic Qualifiers: Diabetes mellitus intermediate insulin use: without pastry wrapper use Diabetes mellitus complication status: with unspecified complications Qualified Code(s) : E11.8 - Type 2 diabetes mellitus with unspecified complications Comment: continue accuchecks, insulin sliding scale (4) Hypertension Code(s): I10 - ESSENTIAL (PRIMARY) HYPERTENSION Status: Chronic Qualifiers: Hypertension type: essential hypertension Qualified Code(s): I10 - Essential (primary) hypertension Comment: controlled - Plan * . Review of Systems - Medications/Allergies Allergies/Adverse Reactions: Allergies Allergy/AdvReac Type Severity Reaction Status Date / Time No Known Drug Allergies Allergy Verified 01/17/18 23:28 Medications: Current Medications Acetaminophen (Tylenol Er (8hr Arthritis Pain)) 650 mg PO Q4H PRN PRN Reason: Pain Last Admin: 01/24/18 10:34 Dose: 650 mg Aspirin (Aspirin) 300 mg AK DAILY [facility] Last Admin: 01/24/18 07:30 Dose: 300 mg Benztropine Mesylate (Cogentin) 1 mg PO DAILY [facility] Last Admin: 01/24/18 07:47 Dose: Not Given Clonidine (Catapres) 0.1 mg PO TID PRN PRN Reason: Hypertension Clonidine (Ldbwjndx-Wlg-6 Patch) 0.1 mg TD Q7D [facility] Last Admin: 01/21/18 10:15 Dose: 0.1 mg Clopidogrel Bisulfate (Plavix) 75 mg PO DAILY [facility] Last Admin: 01/24/18 07:47 Dose: Not Given Dextrose/Water (Dextrose 50%) 25 gm SLOW IVP PRN PRN PRN Reason: Hypoglycemia Diltiazem HCl (Cardizem Cd) 120 mg PO BID [facility] Last Admin: 01/24/18 07:48 Dose: Not Given Docusate Sodium (Colace) 100 mg PO DAILY PRN PRN Reason: Constipation Famotidine (Pepcid) 20 mg PO BID [facility] Last Admin: 01/24/18 07:48 Dose: Not Given Glucagon (Glucagon) 1 mg IM PRN PRN PRN Reason: Hypoglycemia Hydralazine HCl (Apresoline) 10 mg SLOW IVP Q6H PRN PRN Reason: SBP>170 Dextrose/Water (D5w) 1,000 mls @ 0 mls/hr IV .Q0M PRN; As Directed PRN Reason: Hypoglycemia Valproic Acid 250 mg/ Sodium (Chloride) 102.5 mls @ 205 mls/hr IVPB QAM [facility] Last Admin: 01/24/18 07:45 Dose: 102.5 mls Valproic Acid 500 mg/ Sodium (Chloride) 105 mls @ 210 mls/hr IVPB HS [facility] Last Admin: 01/23/18 20:24 Dose: 105 mls Dextrose/Sodium Chloride (D5 0.9% Ns) 1,000 mls @ 70 mls/hr IV .[id number] [facility]US[facility] Last Admin: 01/24/18 12:04 Dose: Not Given Insulin Human Regular (Humulin R) 0 units SC .MILD SLIDING SCALE PRN PRN Reason: Mild Correctional Scale Last Admin: 01/24/18 12:44 Dose: 2 unit Labetalol HCl (Normodyne) 10 mg SLOW IVP Q8H PRN PRN Reason: SBP Greater Than 170 Sodium Chloride (Flush - Normal Saline) 10 ml IVF Q12HR [facility] Last Admin: 01/24/18 07:47 Dose: 10 ml Sodium Chloride (Flush - Normal Saline) 10 ml IVF PRN PRN PRN Reason: Saline Flush Ziprasidone (Geodon) 20 mg PO HS [facility] Last Admin: 01/23/18 20:28 Dose: Not Given
[2018-01-24] MEDS ORDERED: Bisacodyl 5 MG TAB PO SCH (15:30)
[2018-01-24] MEDS: Valproate Sodium 500 MG in Sodium Chloride 0.9% 100 ML IVPB SCH (20:00)
[2018-01-24] MEDS: Ziprasidone 20 MG CAP PO SCH (21:06)
[2018-01-25] MEDS: Dextrose 5 % And 0.9 % NaCl 1,000 ML IV SCH ×2 (01:54→17:54)
[2018-01-25 04:47] LABS: #Basophils 0.1 thou/uL (0.0-0.2); #Eosinphils 0.3 thou/uL (0.0-0.7); #Lymphocytes 3.5 thou/uL (1.20-3.40); #Monocytes 0.7 thou/uL (0.11-0.59); %Basophils 0.7 % (0.0-1.0); %Eosinophils 3.3 % (0.0-10.0); %Lymphocytes 41.7 % (21.0-51.0); %Monocytes 7.8 % (0.0-10.0); %Neutrophils 46.5 % (42.0-75.0); Hemoglobin 16.2 g/dL (14.0-18.0); Mean Corpuscular Hemoglobin 30.2 pg (27.0-31.0); Mean Corpuscular Volume 88.8 fL (78.0-98.0); Mean Platelet Volume 7.1 fL (7.4-10.4); Platelet Count 275 thou/uL (130-400); RBC Distribution Width 11.8 % (11.5-14.5); Red Blood Cell (RBC) Count 5.35 mill/uL (4.70-6.10); White Blood Cell (WBC) Count 8.5 thou/uL (4.8-10.8)
[2018-01-25 04:55] LABS: Anion Gap 11 mmol/L (10-20); BUN (Urea Nitrogen) 19 mg/dL (8.4-25.7); Calc. Creatinine Clearance 134 mL/min (70-130); Carbon Dioxide 22 mmol/L (22-29); Chloride 108 mmol/L (98-107); Estimated GFR-MDRD Greater than 90; Glucose 139 mg/dL (70-105); Potassium 3.4 mmol/L (3.5-5.1); Sodium 138 mmol/L (136-145)
[2018-01-25] MEDS: Valproate Sodium 250 MG in Sodium Chloride 0.9% 100 ML IVPB SCH (08:06)
[2018-01-25] MEDS: Aspirin 300 MG Suppository PR SCH (08:09)
[2018-01-25] MEDS: Famotidine 20 MG TAB PO SCH ×2 (08:17→21:02)
[2018-01-25] MEDS: Benztropine 1 MG TAB PO SCH (08:18)
[2018-01-25] MEDS: Clopidogrel Bisulfate 75 MG TAB PO SCH (08:18)
[2018-01-25] MEDS ORDERED: Potassium Chloride 20 MEQ TAB PO SCH (08:30)
[2018-01-25] MEDS ORDERED: Bisacodyl 5 MG TAB PO SCH (11:00)
[2018-01-25] MEDS ORDERED: Potassium Chloride 40 MEQ in Sodium Chloride 0.9% 500 ML IVPB SCH (12:00)
--- NOTE | 2018-01-25 14:53 | PDOC.PN ---
- Subjective Encounter Start Date: 01/25/18 Encounter Start Time: 08:40 Pt seen for followup re: acute encephalopathy. Opening eyes but nonverbal, unable to complete ROS. - Objective MAR Reviewed: Yes Vital Signs & Weight: Vital Signs (12 hours) Temp Pulse Resp BP BP Pulse Ox 01/25/18 12:23 153/104 H 01/25/18 08:12 98.2 F 73 18 157/99 H 95 01/25/18 08:00 99.0 F 77 16 95 01/25/18 04:30 99.0 F 77 16 144/101 H 97 Weight Weight 200 lb 1.6 oz I&O: 01/24/18 01/25/18 01/26/18 06:59 06:59 06:59 Intake Total 1800 1520 Balance 1800 1520 Result Diagrams: 01/25/18 04:22 01/25/18 04:22 Additional Labs: Accuchecks 01/25/18 01/25/18 01/24/18 11:50 04:37 20:19 POC Glucose 140 H 130 H 109 01/24/18 17:01 POC Glucose 138 H Labs reviewed by me Phys Exam - Physical Examination Obesity HEENT: moist MMs Neck: supple Respiratory: clear to auscultation bilateral Cardiovascular: RRR Gastrointestinal: soft Musculoskeletal: no edema Neurological: moves all 4 limbs Deviation from normal: Unable to assess Dx/Plan (1) Acute encephalopathy Code(s): G93.40 - ENCEPHALOPATHY, UNSPECIFIED Status: Acute Comment: Improving, continue Geodon, await [facility] bed (2) Bipolar disorder Code(s): F31.9 - BIPOLAR DISORDER, UNSPECIFIED Status: Chronic Comment: [facility] following (3) Diabetes type 2, controlled Code(s): E11.9 - TYPE 2 DIABETES MELLITUS WITHOUT COMPLICATIONS Status: Chronic Qualifiers: Diabetes mellitus nursing home insulin use: without nursing home use Diabetes mellitus complication status: with unspecified complications Qualified Code(s) : E11.8 - Type 2 diabetes mellitus with unspecified complications Comment: on accuchecks, insulin sliding scale (4) Hypertension Code(s): I10 - ESSENTIAL (PRIMARY) HYPERTENSION Status: Chronic Qualifiers: Hypertension type: essential hypertension Qualified Code(s): I10 - Essential (primary) hypertension Comment: controlled - Plan * . Review of Systems - Medications/Allergies Allergies/Adverse Reactions: Allergies Allergy/AdvReac Type Severity Reaction Status Date / Time No Known Drug Allergies Allergy Verified 01/17/18 23:28 Medications: Current Medications Acetaminophen (Tylenol Er (8hr Arthritis Pain)) 650 mg PO Q4H PRN PRN Reason: Pain Last Admin: 01/24/18 10:34 Dose: 650 mg Aspirin (Aspirin) 300 mg [place] DAILY [facility] Last Admin: 01/25/18 08:09 Dose: 300 mg Benztropine Mesylate (Cogentin) 1 mg PO DAILY [facility] Last Admin: 01/25/18 08:18 Dose: Not Given Clonidine (Catapres) 0.1 mg PO TID PRN PRN Reason: Hypertension Clonidine (Loawefhs-Szf-8 Patch) 0.1 mg TD Q7D [facility] Last Admin: 01/21/18 10:15 Dose: 0.1 mg Clopidogrel Bisulfate (Plavix) 75 mg PO DAILY [facility] Last Admin: 01/25/18 08:18 Dose: Not Given Dextrose/Water (Dextrose 50%) 25 gm SLOW IVP PRN PRN PRN Reason: Hypoglycemia Diltiazem HCl (Cardizem Cd) 120 mg PO BID [facility] Last Admin: 01/25/18 08:18 Dose: Not Given Docusate Sodium (Colace) 100 mg PO DAILY PRN PRN Reason: Constipation Famotidine (Pepcid) 20 mg PO BID [facility] Last Admin: 01/25/18 08:17 Dose: Not Given Glucagon (Glucagon) 1 mg IM PRN PRN PRN Reason: Hypoglycemia Hydralazine HCl (Apresoline) 10 mg SLOW IVP Q6H PRN PRN Reason: SBP>170 Dextrose/Water (D5w) 1,000 mls @ 0 mls/hr IV .Q0M PRN; As Directed PRN Reason: Hypoglycemia Valproic Acid 250 mg/ Sodium (Chloride) 102.5 mls @ 205 mls/hr IVPB QAM [facility] Last Admin: 01/25/18 08:06 Dose: 102.5 mls Valproic Acid 500 mg/ Sodium (Chloride) 105 mls @ 210 mls/hr IVPB HS [facility] Last Admin: 01/24/18 20:00 Dose: 105 mls Dextrose/Sodium Chloride (D5 0.9% Ns) 1,000 mls @ 70 mls/hr IV .[id number] [facility] Last Admin: 01/25/18 01:54 Dose: Not Given Potassium Chloride 40 meq/ (Sodium Chloride) 520 mls @ 130 mls/hr IVPB NOW [facility]US[facility] Stop: 01/25/18 15:59 Last Admin: 01/25/18 12:32 Dose: 520 mls Insulin Human Regular (Humulin R) 0 units SC .MILD SLIDING SCALE PRN PRN Reason: Mild Correctional Scale Last Admin: 01/24/18 12:44 Dose: 2 unit Labetalol HCl (Normodyne) 10 mg SLOW IVP Q8H PRN PRN Reason: SBP Greater Than 170 Sodium Chloride (Flush - Normal Saline) 10 ml IVF Q12HR [facility] Last Admin: 01/25/18 08:19 Dose: Not Given Sodium Chloride (Flush - Normal Saline) 10 ml IVF PRN PRN PRN Reason: Saline Flush Ziprasidone (Geodon) 20 mg PO HS [facility] Last Admin: 01/24/18 21:06 Dose: Not Given
[2018-01-25] MEDS: Valproate Sodium 500 MG in Sodium Chloride 0.9% 100 ML IVPB SCH (21:00)
[2018-01-25] MEDS: Ziprasidone 20 MG CAP PO SCH (21:02)
[2018-01-26] MEDS: Valproate Sodium 250 MG in Sodium Chloride 0.9% 100 ML IVPB SCH (08:42)
[2018-01-26] MEDS: Benztropine 1 MG TAB PO SCH (08:43)
[2018-01-26] MEDS: Aspirin 300 MG Suppository PR SCH (08:43)
[2018-01-26] MEDS: Famotidine 20 MG TAB PO SCH ×2 (08:44→20:22)
[2018-01-26] MEDS: Clopidogrel Bisulfate 75 MG TAB PO SCH (08:45)
[2018-01-26] MEDS: Dextrose 5 % And 0.9 % NaCl 1,000 ML IV SCH ×2 (09:18→20:29)
--- NOTE | 2018-01-26 11:11 | PDOC.PN ---
- Subjective Encounter Start Date: 01/26/18 Encounter Start Time: 11:09 Subjective: nonverbal, mental status unchanged - Objective MAR Reviewed: Yes Vital Signs & Weight: Vital Signs (12 hours) Temp Pulse Resp BP BP BP Pulse Ox 01/26/18 08:44 73 157/118 H 01/26/18 07:27 97.6 F 73 18 157/118 H 96 01/26/18 04:00 98.2 F 81 18 162/98 H 97 01/26/18 00:00 98.5 F 75 20 154/100 H 97 Weight Weight 195 lb 9 oz I&O: 01/25/18 01/26/18 01/27/18 06:59 06:59 06:59 Intake Total 1520 1960 Output Total 2 Balance 1520 1958 Result Diagrams: 01/25/18 04:22 01/25/18 04:22 Additional Labs: Accuchecks 01/26/18 01/25/18 01/25/18 05:09 21:01 16:41 POC Glucose 147 H 157 H 98 01/25/18 11:50 POC Glucose 140 H Phys Exam - Physical Examination Neck: no JVD Respiratory: clear to auscultation bilateral Cardiovascular: RRR, no significant murmur Gastrointestinal: soft, non-tender, positive bowel sounds Musculoskeletal: no edema Dx/Plan (1) Acute encephalopathy Code(s): G93.40 - ENCEPHALOPATHY, UNSPECIFIED Status: Acute Comment: Improving, continue Geodon, await [facility] bed (2) Schizoaffective disorder Code(s): F25.9 - SCHIZOAFFECTIVE DISORDER, UNSPECIFIED Status: Chronic Qualifiers: Schizoaffective disorder type: unspecified Qualified Code(s): F25.9 - Schizoaffective disorder, unspecified (3) Diabetes type 2, controlled Code(s): E11.9 - TYPE 2 DIABETES MELLITUS WITHOUT COMPLICATIONS Status: Chronic Qualifiers: Diabetes mellitus ferry terminal supervisor insulin use: without senior living use Diabetes mellitus complication status: with unspecified complications Qualified Code(s) : E11.8 - Type 2 diabetes mellitus with unspecified complications Comment: on accuchecks, insulin sliding scale (4) Hypertension Code(s): I10 - ESSENTIAL (PRIMARY) HYPERTENSION Status: Chronic Qualifiers: Hypertension type: essential hypertension Qualified Code(s): I10 - Essential (primary) hypertension Comment: controlled (5) Paroxysmal atrial fibrillation Code(s): I48.0 - PAROXYSMAL ATRIAL FIBRILLATION Status: Chronic Comment: Rate-controlled. - Plan major problem other than mental status in uncontrolled HTN -: add metoprolol 25 bid * .
[2018-01-26] MEDS ORDERED: Metoprolol Tartrate 25 MG TAB PO SCH (11:30)
[2018-01-26] MEDS: Valproate Sodium 500 MG in Sodium Chloride 0.9% 100 ML IVPB SCH (20:20)
[2018-01-26] MEDS: Metoprolol Tartrate 25 MG TAB PO SCH (20:22)
[2018-01-26] MEDS: Ziprasidone 20 MG CAP PO SCH (20:22)
[2018-01-27] MEDS: Valproate Sodium 250 MG in Sodium Chloride 0.9% 100 ML IVPB SCH (10:22)
[2018-01-27] MEDS: Aspirin 300 MG Suppository PR SCH (10:22)
[2018-01-27] MEDS: Metoprolol Tartrate 25 MG TAB PO SCH ×2 (10:22→20:00)
[2018-01-27] MEDS: Clopidogrel Bisulfate 75 MG TAB PO SCH (10:22)
[2018-01-27] MEDS: Benztropine 1 MG TAB PO SCH (10:22)
[2018-01-27] MEDS: Famotidine 20 MG TAB PO SCH ×2 (10:22→20:00)
[2018-01-27 10:55] VITALS: BMI 31.5
--- NOTE | 2018-01-27 11:34 | PDOC.PN ---
- Subjective Encounter Start Date: 01/27/18 Encounter Start Time: 11:33 Subjective: no appropriate responce - Objective MAR Reviewed: Yes Vital Signs & Weight: Vital Signs (12 hours) Temp Pulse Resp BP Pulse Ox 01/27/18 10:22 64 01/27/18 08:00 98.6 F 53 L 14 01/27/18 07:09 98.6 F 53 L 14 159/110 H 98 Weight Admit Weight 199 lb 1.6 oz Weight 195 lb 9 oz I&O: 01/26/18 01/27/18 01/28/18 06:59 06:59 06:59 Intake Total 1960 360 Output Total 2 Balance 1957 360 Result Diagrams: 01/25/18 04:22 01/25/18 04:22 Additional Labs: Accuchecks 01/27/18 01/26/18 01/26/18 05:47 20:28 16:55 POC Glucose 133 H 187 H 136 H 01/26/18 11:27 POC Glucose 132 H Phys Exam - Physical Examination catatonic Neck: no JVD Respiratory: clear to auscultation bilateral Cardiovascular: RRR, no significant murmur Gastrointestinal: soft, non-tender, positive bowel sounds Musculoskeletal: no edema Dx/Plan (1) Acute encephalopathy Code(s): G93.40 - ENCEPHALOPATHY, UNSPECIFIED Status: Acute Comment: Improving, continue Geodon, await [facility] bed (2) Schizoaffective disorder Code(s): F25.9 - SCHIZOAFFECTIVE DISORDER, UNSPECIFIED Status: Chronic Qualifiers: Schizoaffective disorder type: unspecified Qualified Code(s): F25.9 - Schizoaffective disorder, unspecified (3) Diabetes type 2, controlled Code(s): E11.9 - TYPE 2 DIABETES MELLITUS WITHOUT COMPLICATIONS Status: Chronic Qualifiers: Diabetes mellitus chcf insulin use: without chcf use Diabetes mellitus complication status: with unspecified complications Qualified Code(s) : E11.8 - Type 2 diabetes mellitus with unspecified complications Comment: on accuchecks, insulin sliding scale (4) Hypertension Code(s): I10 - ESSENTIAL (PRIMARY) HYPERTENSION Status: Chronic Qualifiers: Hypertension type: essential hypertension Qualified Code(s): I10 - Essential (primary) hypertension Comment: controlled (5) Paroxysmal atrial fibrillation Code(s): I48.0 - PAROXYSMAL ATRIAL FIBRILLATION Status: Chronic Comment: Rate-controlled. - Plan awaiting placement -: cont home meds -: no medical complications at present * .
[2018-01-27] MEDS: Insulin Regular 300 UNITS/3 ML VIAL SC PRN (17:10)
[2018-01-27] MEDS: Dextrose 5 % And 0.9 % NaCl 1,000 ML IV SCH (17:11)
[2018-01-27] MEDS: Valproate Sodium 500 MG in Sodium Chloride 0.9% 100 ML IVPB SCH (20:00)
[2018-01-27] MEDS: Ziprasidone 20 MG CAP PO SCH (20:01)
[2018-01-28] MEDS: Dextrose 5 % And 0.9 % NaCl 1,000 ML IV SCH (04:37)
[2018-01-28] MEDS: Valproate Sodium 250 MG in Sodium Chloride 0.9% 100 ML IVPB SCH (09:44)
[2018-01-28] MEDS: Famotidine 20 MG TAB PO SCH ×2 (09:44→21:31)
[2018-01-28] MEDS: cloNIDine 0.1mg/24 Hour PATCH TD SCH (09:44)
[2018-01-28] MEDS: Benztropine 1 MG TAB PO SCH (09:44)
[2018-01-28] MEDS: Clopidogrel Bisulfate 75 MG TAB PO SCH (09:44)
[2018-01-28] MEDS: Metoprolol Tartrate 25 MG TAB PO SCH ×2 (09:44→21:31)
[2018-01-28] MEDS: Aspirin 300 MG Suppository PR SCH (09:45)
--- NOTE | 2018-01-28 11:03 | PDOC.PN ---
- Subjective Encounter Start Date: 01/28/18 Encounter Start Time: 11:02 Subjective: some verbalization today, adequate po intake - Objective MAR Reviewed: Yes Vital Signs & Weight: Vital Signs (12 hours) Temp Pulse Resp BP Pulse Ox 01/28/18 08:00 97.5 F L 75 14 01/28/18 07:26 97.5 F L 75 14 146/98 H 95 Weight Admit Weight 199 lb 1.6 oz Weight 195 lb 9 oz I&O: 01/27/18 01/28/18 01/29/18 06:59 06:59 06:59 Intake Total 360 1020 Balance 360 1020 Result Diagrams: 01/25/18 04:22 01/25/18 04:22 Additional Labs: Accuchecks 01/27/18 01/27/18 01/27/18 20:45 15:49 11:22 POC Glucose 115 H 189 H 132 H Phys Exam - Physical Examination Neck: no JVD Respiratory: clear to auscultation bilateral Cardiovascular: RRR, no significant murmur Gastrointestinal: soft, positive bowel sounds Musculoskeletal: no edema Dx/Plan (1) Acute encephalopathy Code(s): G93.40 - ENCEPHALOPATHY, UNSPECIFIED Status: Acute Comment: Improving, continue Geodon, await [facility] bed (2) Schizoaffective disorder Code(s): F25.9 - SCHIZOAFFECTIVE DISORDER, UNSPECIFIED Status: Chronic Qualifiers: Schizoaffective disorder type: unspecified Qualified Code(s): F25.9 - Schizoaffective disorder, unspecified (3) Diabetes type 2, controlled Code(s): E11.9 - TYPE 2 DIABETES MELLITUS WITHOUT COMPLICATIONS Status: Chronic Qualifiers: Diabetes mellitus nursing home insulin use: without nursing home use Diabetes mellitus complication status: with unspecified complications Qualified Code(s) : E11.8 - Type 2 diabetes mellitus with unspecified complications Comment: on accuchecks, insulin sliding scale (4) Hypertension Code(s): I10 - ESSENTIAL (PRIMARY) HYPERTENSION Status: Chronic Qualifiers: Hypertension type: essential hypertension Qualified Code(s): I10 - Essential (primary) hypertension Comment: controlled (5) Paroxysmal atrial fibrillation Code(s): I48.0 - PAROXYSMAL ATRIAL FIBRILLATION Status: Chronic Comment: Rate-controlled. - Plan still awaiting inpt psychont current meds and therapies * .
[2018-01-28] MEDS: Acetaminophen ER (8hr) 650 MG TAB PO PRN (15:19)
[2018-01-28 19:26] LABS: #Basophils 0.1 thou/uL (0.0-0.2); #Eosinphils 0.2 thou/uL (0.0-0.7); #Lymphocytes 2.5 thou/uL (1.20-3.40); #Monocytes 0.6 thou/uL (0.11-0.59); #Neutrophils 6.1 thou/uL (1.40-6.50); %Basophils 1.1 % (0.0-1.0); %Eosinophils 1.7 % (0.0-10.0); %Lymphocytes 26.7 % (21.0-51.0); %Monocytes 6.6 % (0.0-10.0); %Neutrophils 63.9 % (42.0-75.0); Hemoglobin 16.3 g/dL (14.0-18.0); Mean Corpuscular HGB CONC 35.2 g/dL (32.0-36.0); Mean Corpuscular Hemoglobin 31.4 pg (27.0-31.0); Mean Corpuscular Volume 89.2 fL (78.0-98.0); Mean Platelet Volume 7.1 fL (7.4-10.4); Platelet Count 288 thou/uL (130-400); Red Blood Cell (RBC) Count 5.18 mill/uL (4.70-6.10); White Blood Cell (WBC) Count 9.5 thou/uL (4.8-10.8)
[2018-01-28 19:34] LABS: Hemoglobin A1c 6.2 % (4.0-6.0)
[2018-01-28 19:46] LABS: ALT (SGPT) 38 U/L (8-55); AST (SGOT) 26 U/L (5-34); Albumin 3.9 g/dL (3.5-5.0); Alkaline Phosphatase 111 U/L (40-150); Anion Gap 12 mmol/L (10-20); BUN (Urea Nitrogen) 15 mg/dL (8.4-25.7); Bilirubin, Total 1.3 mg/dL (0.2-1.2); Calc. Creatinine Clearance 95 mL/min (70-130); Calcium 9.2 mg/dL (7.8-10.44); Carbon Dioxide 22 mmol/L (22-29); Cardiac Risk 5.6 (Less than 4.5); Chloride 107 mmol/L (98-107); Cholesterol 151 mg/dl (< 200 Desired); Estimated GFR-MDRD 70; Globulin 3.2 g/dL (2.4-3.5); Glucose 214 mg/dL (70-105); HDL Cholesterol 27 mg/dL (>60 Neg Risk); LDL Cholesterol, Calculated 101 mg/dL; Potassium 3.4 mmol/L (3.5-5.1); Protein, Total 7.1 g/dL (6.0-8.3); Sodium 138 mmol/L (136-145); Triglycerides 117 mg/dL (Less than 150)
[2018-01-28] MEDS: Ziprasidone 20 MG CAP PO SCH (21:31)
[2018-01-29 03:00] LABS: Bilirubin Small (Negative); Blood, Urine Negative (Negative); Clarity CLEAR (Clear); Glucose, Urine (Dipstick) Negative (Negative); Leukocyte Negative (Negative); Nitrite Negative (Negative); Protein, Urine (Dipstick) Negative (Neg-Trace); Specific Gravity, Urine 1.019 (1.002-1.036); Urobilinogen > or = 8.0 mg/dL (0.2-1.0)
[2018-01-29 03:02] LABS: Bacteria/HPF None Seen HPF (None Seen); Hyaline Casts/LPF 0-3 HYALINE CAST LPF (0-3 Hyaline); Pathc Cast-AUWi Flag 0.14 (0-2.49); RBC/HPF 0-3 HPF (0-3); Squamous Epithelial 0-3 HPF (0-3); WBC/HPF 0-3 HPF (0-3)
[2018-01-29] MEDS ORDERED: Haloperidol Lactate 5 MG/ML VIAL IM PRN (09:48)
[2018-01-29] MEDS ORDERED: Haloperidol Lactate 5 MG/ML VIAL IM SCH (10:00)
[2018-01-29] MEDS: Clopidogrel Bisulfate 75 MG TAB PO SCH (10:24)
[2018-01-29] MEDS: Benztropine 1 MG TAB PO SCH (10:24)
[2018-01-29] MEDS: Aspirin 300 MG Suppository PR SCH (10:24)
[2018-01-29] MEDS: Metoprolol Tartrate 25 MG TAB PO SCH ×2 (10:25→20:27)
[2018-01-29] MEDS: Famotidine 20 MG TAB PO SCH ×2 (10:25→20:27)
[2018-01-29 11:48] VITALS: TEMP 97.6
--- NOTE | 2018-01-29 12:09 | PDOC.PN ---
- Subjective Encounter Start Date: 01/29/18 Encounter Start Time: 12:08 Subjective: non-verbal - Objective MAR Reviewed: Yes Vital Signs & Weight: Vital Signs (12 hours) Temp Pulse Resp BP Pulse Ox 01/29/18 11:45 97.6 F 72 16 149/95 H 97 01/29/18 10:24 57 L 01/29/18 09:25 97.5 F L 57 L 16 97 01/29/18 07:30 97.5 F L 57 L 16 155/96 H 95 01/29/18 04:00 98.5 F 64 20 144/90 H 99 Weight Admit Weight 199 lb 1.6 oz Weight 195 lb 9 oz I&O: 01/28/18 01/29/18 01/30/18 06:59 06:59 06:59 Intake Total 1020 Output Total 250 Balance 1020 -250 Result Diagrams: 01/28/18 19:18 01/28/18 19:18 Additional Labs: Accuchecks 01/29/18 01/29/18 01/28/18 11:06 04:50 23:37 POC Glucose 131 H 114 H 114 H 01/28/18 01/28/18 01/28/18 19:28 16:05 04:38 POC Glucose 174 H 163 H 137 H Phys Exam - Physical Examination Neck: no JVD Respiratory: clear to auscultation bilateral Cardiovascular: no significant murmur, irregular Gastrointestinal: soft, positive bowel sounds Musculoskeletal: no edema Dx/Plan (1) Acute encephalopathy Code(s): G93.40 - ENCEPHALOPATHY, UNSPECIFIED Status: Acute Comment: Improving, continue Geodon, await [facility] bed (2) Schizoaffective disorder Code(s): F25.9 - SCHIZOAFFECTIVE DISORDER, UNSPECIFIED Status: Chronic Qualifiers: Schizoaffective disorder type: unspecified Qualified Code(s): F25.9 - Schizoaffective disorder, unspecified (3) Diabetes type 2, controlled Code(s): E11.9 - TYPE 2 DIABETES MELLITUS WITHOUT COMPLICATIONS Status: Chronic Qualifiers: 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 - Plan medically stable, awaiting [facility] * .
--- NOTE | 2018-01-29 13:22 | DIS ---
PRIMARY CARE PROVIDER: Dr. Ana Maria Tang DATE OF ADMISSION: 01/17/2018 DATE OF DISCHARGE: 01/29/2018 DISCHARGE DISPOSITION: Discharged to [facility]. FINAL DIAGNOSES: 1. Encephalopathy. 2. Schizoaffective disorder. 3. Diabetes mellitus type 2. 4. Hypertension. 5. Atrial fibrillation. DISCHARGE MEDICATIONS: Clonidine 0.1 mg p.o. t.i.d. p.r.n., clonidine TTS 1 patch change every 7 day s, Geodon 20 mg at bedtime, metoprolol 25 mg twice a day, Depakote 250 a.m., 500 p.m., diltiazem 120 mg p.o. b.i.d., Plavix 75 mg a day, Cogentin 1 mg a day, Tylenol Arthritis Pain. ALLERGIES: No known allergies. CODE STATUS: FULL. PENDING AT THE TIME OF DISCHARGE: Nothing. CONSULTATIONS: Dr. Niki Camp PROCEDURES: Lumbar puncture. HOSPITAL COURSE: The patient admitted to [facility] through the [facility] with history of schizophrenia. The patient has been confused, noncooperative. He had been brou ght to the emergency room for mental status changes. He has had homicidal and suicidal ideations. Physical exam was done revealing initial CBC showed a mild elevation of white count of 13.1, hemoglob in 16.9, platelet count 305,000. This was repeated frequently. The white cell count cleared up on d ay 2. His discharge CBC is normal. Chemistries; admitting creatinine 1.61, BUN 45, creatinine kinas e 1284, bilirubin 3.3, AST 49. Admitting lactic acid was 2.3. His rhabdomyolysis cleared rapidly. His lactic acidosis cleared rapidly. His blood sugar remained well controlled during his hospital st ay, his hemoglobin A1c is 6.2. His last electrolytes revealed a sodium 138, potassium 3.4, BUN 15, c reatinine 1.08, bilirubin still minimally elevated at 1.3, most consistent with either [place] or [place] syndrome, benign liver variant. His EKG x2 revealed atrial fibrillation, controlled ventricular response. He had a LP which revealed 1 red cell, 2 white cells, colorless clear, CSF culture was neg ative. Urine culture was negative. Blood cultures negative x2. The patient has been in the hospital some 12 days. He has been cleared for transfer for over a week. He has now been accepted at the [facility]. He has been transferred there. Currently, his mental status remains the same. He is noncommunicative. He does feed himself. He does move and do things, but he is not cooperative on any level. As mentioned before, studies were done to find a reason for his change in mental status, encephalopathy other than his schizoaffective disorder, none was found. FOLLOWUP: Follow up will be at the [facility]. I have spoken with the admitting physicia n within the last hour and they have agreed to accept the patient who is medically stable.
[2018-01-29] MEDS ORDERED: cloNIDine 0.2mg/24 Hour PATCH TD SCH (18:15)
[2018-01-29] MEDS: Ziprasidone 20 MG CAP PO SCH (20:27)
[2018-01-29 20:30] VITALS: BP 148/96
== END 2018-01-29 21:15 | DRG 71 ==
LOC: ERS 17:58 → 2NO 20:24 → T4-A 01-20 12:34
PROVIDERS: ADMIT Hospitalist; ATTEND Hospitalist
PROC: 009U3ZX Drainage of Spinal Canal, Percutaneous Approach, Diagnostic (ICD-10-PCS; principal; 2018-01-17)
DX: G93.40 Encephalopathy, unspecified (principal); M62.82 Rhabdomyolysis; E87.2 Acidosis; N17.9 Acute kidney failure, unspecified; I48.0 Paroxysmal atrial fibrillation; I10 Essential (primary) hypertension; F41.9 Anxiety disorder, unspecified; F31.9 Bipolar disorder, unspecified; R32 Unspecified urinary incontinence; F25.8 Other schizoaffective disorders; E11.65 Type 2 diabetes mellitus with hyperglycemia; E86.0 Dehydration; E66.9 Obesity, unspecified; R45.850 Homicidal ideations; F29 Unspecified psychosis not due to a substance or known physiological condition; Z79.899 Other long term (current) drug therapy; Z79.84 Long term (current) use of oral hypoglycemic drugs; Z79.82 Long term (current) use of aspirin
CPT/HCPCS: 36415; 36416; 51701; 62270; 70450; 71045; 80048; 80053; 80061; 80202; 80306; 80307; 81001; 81003; 81015; 82140; 82550; 82553; 82945; 83036; 83605; 83690; 83735; 84157; 84443; 84484; 85025; 86592; 86788; 86789; 87040; 87070; 87086; 87205; 89051; 93005; 93010; 93306; 96361; 96365; 96366; 96367; 96375; 99156; 99157; A4216; G8978-GP-CL; G8979-GP-CJ; J0692; J0696; J1630; J1815; J1956; J3370; J3480; J7050

== ENCOUNTER 2019-03-24 14:05 | Emergency (ER) | payer SELFPAY ==
[2019-03-24 14:55] LABS: #Basophils 0.1 thou/uL (0.0-0.2); #Eosinphils 0.1 thou/uL (0.0-0.7); #Lymphocytes 2.5 thou/uL (1.20-3.40); #Monocytes 0.7 thou/uL (0.11-0.59); #Neutrophils 6.2 thou/uL (1.40-6.50); %Basophils 0.7 % (0.0-1.0); %Eosinophils 1.5 % (0.0-10.0); %Lymphocytes 25.6 % (21.0-51.0); %Monocytes 7.3 % (0.0-10.0); %Neutrophils 64.8 % (42.0-75.0); Mean Corpuscular HGB CONC 32.7 g/dL (32.0-36.0); Mean Corpuscular Hemoglobin 30.1 pg (27.0-31.0); Mean Corpuscular Volume 92.1 fL (78.0-98.0); Mean Platelet Volume 7.6 fL (7.4-10.4); Platelet Count 167 thou/uL (130-400); RBC Distribution Width 12.3 % (11.5-14.5); Red Blood Cell (RBC) Count 4.64 mill/uL (4.70-6.10); White Blood Cell (WBC) Count 9.5 thou/uL (4.8-10.8)
[2019-03-24 15:06] LABS: ALT (SGPT) 62 U/L (8-55); AST (SGOT) 49 U/L (5-34); Albumin 4.3 g/dL (3.5-5.0); Alkaline Phosphatase 149 U/L (40-150); Anion Gap 13 mmol/L (10-20); BUN (Urea Nitrogen) 17 mg/dL (8.4-25.7); Bilirubin, Total 0.5 mg/dL (0.2-1.2); Calc. Creatinine Clearance 0 mL/min (70-130); Calcium 9.9 mg/dL (7.8-10.44); Carbon Dioxide 28 mmol/L (22-29); Chloride 93 mmol/L (98-107); Estimated GFR-MDRD 47; Globulin 3.5 g/dL (2.4-3.5); Glucose 517 mg/dL (70-105); Potassium 4.4 mmol/L (3.5-5.1); Protein, Total 7.8 g/dL (6.0-8.3); Sodium 130 mmol/L (136-145)
[2019-03-24 16:16] LABS: Bilirubin Negative (Negative); Blood, Urine Negative (Negative); Glucose, Urine (Dipstick) >=1000 mg/dL (Negative); Leukocyte Negative (Negative); Nitrite Negative (Negative); Protein, Urine (Dipstick) Negative (Neg-Trace)
[2019-03-24 16:17] LABS: Clarity Clear (Clear)
== END 2019-03-24 16:36 | disposition home or self-care (01) ==
LOC: ERS 14:05
DX: E11.65 Type 2 diabetes mellitus with hyperglycemia (principal); I10 Essential (primary) hypertension; I48.91 Unspecified atrial fibrillation; F20.9 Schizophrenia, unspecified; F31.9 Bipolar disorder, unspecified; F41.9 Anxiety disorder, unspecified
CPT/HCPCS: 36416; 80053; 81003; 82010; 85025; 96360; 96361

== ENCOUNTER 2019-06-26 09:45 | Emergency (ER) | payer MEDICARE, SELFPAY ==
--- NOTE | 2019-06-26 10:40 | RAD ---
Chest PA and lateral: HISTORY: Productive cough, fever COMPARISON: 01/17/2019 FINDINGS: Fairly prominent right hemidiaphragm elevation. Patchy alveolar parenchymal changes in the right lung evidence for pneumonia. There is some associated bilateral pleural thickening worse on the right side and somewhat more prominent than on the prior study. The left lung is clear. Heart size is ankita l. IMPRESSION: Evidence for right lung pneumonia. Right hemidiaphragm elevation. Pleural thickening.
[2019-06-26 10:42] LABS: Hemoglobin 13.6 g/dL (14.0-18.0); Mean Corpuscular HGB CONC 33.8 g/dL (32.0-36.0); Mean Corpuscular Hemoglobin 30.5 pg (27.0-31.0); Mean Corpuscular Volume 90.3 fL (78.0-98.0); Mean Platelet Volume 7.1 fL (7.4-10.4); Platelet Count 148 thou/uL (130-400); RBC Distribution Width 11.8 % (11.5-14.5); Red Blood Cell (RBC) Count 4.46 mill/uL (4.70-6.10); White Blood Cell (WBC) Count 6.6 thou/uL (4.8-10.8)
[2019-06-26 11:13] LABS: ALT (SGPT) 57 U/L (8-55); AST (SGOT) 52 U/L (5-34); Albumin 4.2 g/dL (3.5-5.0); Alkaline Phosphatase 117 U/L (40-110); Anion Gap 15 mmol/L (10-20); BUN (Urea Nitrogen) 13 mg/dL (8.4-25.7); Bilirubin, Total 0.7 mg/dL (0.2-1.2); Calc. Creatinine Clearance 0 mL/min (70-130); Calcium 9.2 mg/dL (7.8-10.44); Carbon Dioxide 26 mmol/L (22-29); Chloride 99 mmol/L (98-107); Estimated GFR-MDRD 65; Globulin 3.2 g/dL (2.4-3.5); Glucose 308 mg/dL (70-105); Potassium 4.3 mmol/L (3.5-5.1); Protein, Total 7.4 g/dL (6.0-8.3); Sodium 136 mmol/L (136-145)
[2019-06-26 11:19] LABS: Band 1 % (5-11); Eosinophils 1 % (0-10); Lymphocytes 14 % (21-51); MDiff Complete? YES; Monocytes 22 % (0-10); Neutrophil 61 % (42-75); Platelet Morphology Comment Appears Adequate; RBC Morphology Normal
== END 2019-06-26 12:25 | disposition home or self-care (01) ==
LOC: ERS 09:45
DX: J18.9 Pneumonia, unspecified organism (principal); I49.9 Cardiac arrhythmia, unspecified; I48.91 Unspecified atrial fibrillation; E11.9 Type 2 diabetes mellitus without complications; I10 Essential (primary) hypertension; F20.9 Schizophrenia, unspecified; F41.9 Anxiety disorder, unspecified; F31.9 Bipolar disorder, unspecified
CPT/HCPCS: 36415; 71046; 80053; 85025; 94640; J7620

== ENCOUNTER 2019-07-27 12:00 | Outpatient (CLI) | payer MEDICARE ==
--- NOTE | 2019-07-27 12:38 | RAD ---
EXAM: Chest 2 views: HISTORY: Chest pain COMPARISON: 06/26/2019 FINDINGS: There is a normal-sized cardiomediastinal silhouette. There is stable elevation the right hemidiaphr agm. There is no evidence of consolidation, mass, or pleural effusion. The bones are unremarkable. IMPRESSION: No evidence of acute cardiopulmonary disease
== END 2019-07-27 12:01 | disposition home or self-care (01) ==
LOC: BICRAD 12:00
PROVIDERS: ATTEND Family Medicine
DX: J18.9 Pneumonia, unspecified organism (principal)
CPT/HCPCS: 71046

== ENCOUNTER 2021-04-14 13:34 | Inpatient (IN) | payer MEDICARE ==
[~2021-04-14 13:34] MED LIST: Iopamidol-370 76% 500 ML 1 ML ONE
[2021-04-14] MEDS ORDERED: Rocuronium Bromide 10 MG/ML (10ML VIAL) ONE ×2 (13:36→13:40)
[2021-04-14] MEDS ORDERED: Ketamine 50 MG/ML (10ML VIAL) ONE (13:36)
[2021-04-14] MEDS ORDERED: EPINEPHrine 1 MG/ML VIAL ONE (13:42)
[2021-04-14] MEDS ORDERED: EPINEPHrine 1 MG/10 ML Abboject SYRINGE ONE ×2 (13:42→15:48)
[2021-04-14] MEDS ORDERED: fentaNYL Citrate/PF 2,000 MCG in Sodium Chloride 0.9% 60 ML IV SCH (13:45)
[2021-04-14] MEDS ORDERED: Norepinephrine 8 MG/0.9% NS 0 ML ONE (13:47)
[2021-04-14] MEDS ORDERED: Norepinephrine 8 MG/0.9% NS 250 ML ONE (13:47)
[2021-04-14] MEDS ORDERED: Hydrocortisone Sod Succ/PF 100 mg/2 ml Vial ONE (14:03)
[2021-04-14] MEDS ORDERED: Diltiazem 125 MG/25 ML ONE (14:07)
[2021-04-14 15:05] LABS: Hemoglobin 15.1 g/dL (14.0-18.0); Mean Corpuscular HGB CONC 31.9 g/dL (32.0-36.0); Mean Corpuscular Hemoglobin 30.9 pg (27.0-31.0); Mean Corpuscular Volume 96.9 fL (78.0-98.0); Mean Platelet Volume 8.1 fL (7.4-10.4); Platelet Count 226 thou/uL (130-400); RBC Distribution Width 12.9 % (11.5-14.5); Red Blood Cell (RBC) Count 4.88 mill/uL (4.70-6.10); White Blood Cell (WBC) Count 13.5 thou/uL (4.8-10.8)
[2021-04-14 15:09] LABS: Actual Bicarbonate (HCO3a) 22.1 mEq/L (22-28); Analyzer IN Cardio ER; Base Excess (BEa) -6.1 mEq/L (-2.0 to +3.0); CO2 Tension 54.9 mmHg (35.0-45.0); Calcium, Ionized (arterial) 1.12 mmol/L (1.12-1.30); Hemoglobin (Hb) 14.3 g/dL (14.0-18.0)
[2021-04-14 15:10] LABS: ALV-art Gradient 561.375 mmHg (0-20); Puncture Site LRA; pH, Arterial 7.22 (7.35-7.45)
[2021-04-14 15:13] LABS: ALT (SGPT) 51 U/L (8-55); AST (SGOT) 39 U/L (5-34); Alkaline Phosphatase 120 U/L (40-110); Anion Gap 22 mmol/L (10-20); BUN (Urea Nitrogen) 57 mg/dL (8.4-25.7); Bilirubin, Total 1.1 mg/dL (0.2-1.2); Calc. Creatinine Clearance 0 mL/min (70-130); Calcium 9.7 mg/dL (7.8-10.44); Carbon Dioxide 25 mmol/L (23-31); Chloride 98 mmol/L (98-107); Globulin 3.2 g/dL (2.4-3.5); Glucose 359 mg/dL (80-115); Potassium 6.4 mmol/L (3.5-5.1); Protein, Total 7.2 g/dL (5.8-8.1); Sodium 139 mmol/L (136-145)
[2021-04-14 15:14] LABS: Acetaminophen Less than 6.0 mcg/mL (10.0-30.0); Alcohol Less than 10 mg/dL (Less than 10); Magnesium 2.6 mg/dL (1.6-2.6); Salicylate Less than 8.0 mg/dL (15.0-30.0)
[2021-04-14 15:22] LABS: Band 4 % (5-11); Lymphocytes 8 % (21-51); MDiff Complete? YES; Monocytes 9 % (0-10); Neutrophil 79 % (42-75); Platelet Morphology Comment Appears Adequate; RBC Morphology Normal
[2021-04-14] MEDS ORDERED: Propofol 500 MG/50 ML VIAL ONE (15:25)
[2021-04-14] MEDS ORDERED: Propofol 1,000 MG/100 ML VIAL IV ONE ×2 (15:25→19:41)
[2021-04-14 15:41] LABS: Bilirubin Negative (Negative); Blood, Urine 1+ (Negative); Clarity Turbid (Clear); Glucose, Urine (Dipstick) 150 mg/dL (Negative); Ketone, Urine Negative (Negative); Leukocyte Negative Leu/uL (Negative); Nitrite Negative (Negative); Protein, Urine (Dipstick) 300 mg/dL (Neg-Trace); Specific Gravity, Urine 1.026 (1.002-1.036); Squamous Epithelial None Seen HPF (0-3); WBC/HPF 0-3 HPF (0-3)
[2021-04-14 15:46] LABS: CKMB 10.4 ng/mL (0-6.6)
[2021-04-14 15:47] LABS: Amphetamine Not Detected (NotDetected); Barbiturates Screen Not Detected (NotDetected); Benzodiazepine Screen Not Detected (NotDetected); Cocaine Metabolite Screen Not Detected (NotDetected); Methadone Not Detected (NotDetected); Methamphetamine Not Detected (NotDetected); Opiate Screen Not Detected (NotDetected); Oxycodone Screen Not Detected (NotDetected); Phencyclidine (PCP) Not Detected (NotDetected); THC/Cannabinoid Screen Not Detected (NotDetected); Tricyclic Screen Not Detected (NotDetected)
[2021-04-14 15:51] LABS: Bacteria/HPF 2+ HPF (None Seen)
[2021-04-14] MEDS ORDERED: Atropine Sulfate 1 mg/10 ml Syringe ONE ×2 (15:52→15:53)
[2021-04-14] MEDS ORDERED: Ventilator Sedation Protocol 1 EACH FS SCH (16:33)
[2021-04-14] MEDS ORDERED: Norepinephrine 8 MG/0.9% NS 250 ML IVPB SCH ×2 (16:45)
[2021-04-14 16:46] LABS: SARS-CoV-2 NAA Rapid Test Not Detected (NotDetected)
[2021-04-14] MEDS ORDERED: Sodium Bicarb 50 MEQ/50 ML Abboject 8.4% SYRINGE ONE (17:12)
[2021-04-14] MEDS ORDERED: Insulin Regular 300 UNITS/3 ML VIAL ONE (17:12)
[2021-04-14] MEDS ORDERED: Dextrose 50% Abboject 50 ML SYRINGE ONE ×2 (17:12→17:13)
[2021-04-14] MEDS ORDERED: Vancomycin 1 GM/200 ML BAG ONE (17:12)
[2021-04-14 17:13] LABS: Lactic Acid 4.1 mmol/L (0.5-2.2)
[2021-04-14 17:20] LABS: Troponin I 0.136 ng/mL (< 0.028)
[2021-04-14] MEDS ORDERED: Calcium Chloride 1 GM/10 ML Abboject SYRINGE ONE (17:20)
[2021-04-14] MEDS ORDERED: Albuterol Sulfate 1.25 MG/3 ML NEB ONE (17:25)
[2021-04-14] MEDS ORDERED: Albuterol Sulfate 2.5 mg/0.5 ml Neb ONE (17:25)
[2021-04-14 17:36] LABS: Actual Bicarbonate (HCO3a) 18.7 mEq/L (22-28); Analyzer IN Cardio ER; CO2 Tension 28.6 mmHg (35.0-45.0); Calcium, Ionized (arterial) 1.83 mmol/L (1.12-1.30); Carboxyhemoglobin (COHb) 0.9 gm% (0.0-3.0); Hemoglobin (Hb) 15.2 g/dL (14.0-18.0); O2 Tension (PaO2), arterial 62.4 mmHg (> 80.0); Potassium - ABG Lab 5.91 mmol/L (3.70-5.30); pH, Arterial 7.43 (7.35-7.45)
[2021-04-14 17:37] LABS: Puncture Site LRA
[2021-04-14] MEDS ORDERED: Cefepime 2 GM VIAL ONE (17:55)
[2021-04-14] MEDS ORDERED: Dextrose 5% in Water 1,000 ML IV PRN (18:22)
[2021-04-14] MEDS ORDERED: Dextrose 50% Abboject 50 ML SYRINGE SLOW IVP PRN (18:22)
[2021-04-14] MEDS ORDERED: Lorazepam 2 MG/ML VIAL ONE (18:49)
[2021-04-14] MEDS ORDERED: Vecuronium 10 MG VIAL ONE (18:50)
[2021-04-14 18:55] LABS: ALT (SGPT) 36 U/L (8-55); AST (SGOT) 35 U/L (5-34); Albumin 2.8 g/dL (3.4-4.8); Alkaline Phosphatase 85 U/L (40-110); Anion Gap 17 mmol/L (10-20); BUN (Urea Nitrogen) 48 mg/dL (8.4-25.7); Bilirubin, Total 1.4 mg/dL (0.2-1.2); Calc. Creatinine Clearance 0 mL/min (70-130); Calcium 7.9 mg/dL (7.8-10.44); Carbon Dioxide 21 mmol/L (23-31); Chloride 103 mmol/L (98-107); Globulin 2.3 g/dL (2.4-3.5); Glucose 431 mg/dL (80-115); Potassium 4.9 mmol/L (3.5-5.1); Protein, Total 5.1 g/dL (5.8-8.1); Sodium 136 mmol/L (136-145)
[2021-04-14] MEDS ORDERED: Sterile Water 10 ML VIAL IVP PRN (19:00)
[2021-04-14 19:08] LABS: HBSAB Concentration Less than 8.00 mIU/mL; HBSAg Index 0.18 S/CO (0-0.99); Hep B Core Total Ab Non-Reactive (NonReactive); Hep B Core Total Index 0.08 S/CO (0-0.79); Hep B Surf AB Non-Reactive (NonReactive); Hep B Surf Ag Non-Reactive S/CO (NonReactive); Hep C IgG Ab Non-Reactive (NonReactive); Hep C Index 0.07 S/CO (0-0.79)
[2021-04-14] MEDS: Sodium Chloride 0.9% 1,000 ML IV SCH (19:43)
[2021-04-14] MEDS: Vecuronium 10 MG VIAL IVP PRN ×2 (19:49→22:52)
[2021-04-14] MEDS ORDERED: Vancomycin 1 GM in Premix Bag 1 BAG IVPB SCH (20:00)
[2021-04-14 20:11] LABS: Troponin I 0.164 ng/mL (< 0.028)
[2021-04-14 20:18] LABS: Actual Bicarbonate (HCO3a) 23.8 mEq/L (22-28); Base Excess (BEa) -0.1 mEq/L (-2.0 to +3.0); CO2 Tension 36.5 mmHg (35.0-45.0); Calcium, Ionized (arterial) 1.18 mmol/L (1.12-1.30); Hemoglobin (Hb) 14.7 g/dL (14.0-18.0); Potassium - ABG Lab 5.18 mmol/L (3.70-5.30); pH, Arterial 7.43 (7.35-7.45)
[2021-04-14 20:23] LABS: O2 Tension (PaO2), arterial 54.7 mmHg (> 80.0)
[2021-04-14 20:24] LABS: ALV-art Gradient 612.675 mmHg (0-20); Puncture Site LINE
[2021-04-14] MEDS: Albumin 25% 25 GM/100 ML BOT IVPB SCH (20:27)
[2021-04-14] MEDS: Famotidine/PF 20 mg/2ml Vial SLOW IVP SCH (20:28)
[2021-04-14] MEDS ORDERED: Heparin 5,000 UNITS/ML VIAL SC SCH (21:00)
[2021-04-14] MEDS: HumaLOG 300 UNITS/3 ML VIAL SC PRN (22:37)
[2021-04-15] MEDS ORDERED: Morphine 2 MG/ML VIAL SLOW IVP PRN (01:15)
[2021-04-15] MEDS ORDERED: Propofol BOLUS 1,000 MG/100 ML VIAL IV PRN (01:15)
[2021-04-15] MEDS ORDERED: DISCONTINUE PREVIOUS NARCOTIC PAIN MEDICATIONS AND BENZODIAZEPINES FS SCH (01:15)
[2021-04-15] MEDS ORDERED: Fentanyl BOLUS 250 ML IVPB PRN (01:15)
[2021-04-15 01:20] LABS: Magnesium 1.9 mg/dL (1.6-2.6)
[2021-04-15] MEDS: Vecuronium 10 MG VIAL IVP PRN (02:03)
[2021-04-15] MEDS: Lorazepam 2 MG/ML VIAL SLOW IVP PRN ×4 (02:05→21:06)
[2021-04-15] MEDS: Sodium Chloride 0.9% 1,000 ML IV SCH ×3 (02:26→22:49)
[2021-04-15] MEDS: Propofol 1,000 MG/100 ML VIAL IV PRN ×4 (02:26→21:39)
[2021-04-15] MEDS: Albumin 25% 25 GM/100 ML BOT IVPB SCH (02:51)
[2021-04-15 04:15] LABS: #Lymphocytes 1.9 thou/uL (1.20-3.40); #Monocytes 1.3 thou/uL (0.11-0.59); #Neutrophils 6.4 thou/uL (1.40-6.50); %Basophils 0.4 % (0.0-1.0); %Eosinophils 0.3 % (0.0-10.0); %Lymphocytes 19.8 % (21.0-51.0); %Monocytes 13.2 % (0.0-10.0); %Neutrophils 66.4 % (42.0-75.0); Hemoglobin 13.5 g/dL (14.0-18.0); Mean Corpuscular HGB CONC 32.5 g/dL (32.0-36.0); Mean Corpuscular Hemoglobin 30.4 pg (27.0-31.0); Mean Corpuscular Volume 93.4 fL (78.0-98.0); Mean Platelet Volume 8.1 fL (7.4-10.4); Platelet Count 180 thou/uL (130-400); RBC Distribution Width 13.2 % (11.5-14.5); Red Blood Cell (RBC) Count 4.44 mill/uL (4.70-6.10); White Blood Cell (WBC) Count 9.7 thou/uL (4.8-10.8)
[2021-04-15 04:39] LABS: ALT (SGPT) 38 U/L (8-55); AST (SGOT) 30 U/L (5-34); Albumin 3.2 g/dL (3.4-4.8); Alkaline Phosphatase 79 U/L (40-110); Anion Gap 14 mmol/L (10-20); BUN (Urea Nitrogen) 52 mg/dL (8.4-25.7); Bilirubin, Total 0.9 mg/dL (0.2-1.2); Calc. Creatinine Clearance 43 mL/min (70-130); Calcium 8.6 mg/dL (7.8-10.44); Carbon Dioxide 27 mmol/L (23-31); Chloride 103 mmol/L (98-107); Globulin 2.4 g/dL (2.4-3.5); Glucose 249 mg/dL (80-115); Phosphorus 2.6 mg/dL (2.3-4.7); Potassium 4.4 mmol/L (3.5-5.1); Protein, Total 5.6 g/dL (5.8-8.1); Sodium 140 mmol/L (136-145)
[2021-04-15] MEDS: HumaLOG 300 UNITS/3 ML VIAL SC PRN ×3 (05:23→22:51)
[2021-04-15] MEDS ORDERED: Fentanyl CADD 0 ML ONE (05:39)
[2021-04-15] MEDS: Heparin 5,000 UNITS/ML VIAL SC SCH ×2 (08:23→21:06)
[2021-04-15] MEDS: Pantoprazole 40 MG VIAL IVP SCH (08:24)
[2021-04-15 08:34] LABS: Actual Bicarbonate (HCO3a) 26.2 mEq/L (22-28); Base Excess (BEa) 2.9 mEq/L (-2.0 to +3.0); Calcium, Ionized (arterial) 1.13 mmol/L (1.12-1.30); Carboxyhemoglobin (COHb) 0.7 gm% (0.0-3.0); Hemoglobin (Hb) 13.4 g/dL (14.0-18.0); Potassium - ABG Lab 4.21 mmol/L (3.70-5.30); pH, Arterial 7.48 (7.35-7.45)
[2021-04-15 08:35] LABS: Puncture Site RRA
[2021-04-15] MEDS: Fentanyl CADD 100 ML IV SCH (12:22)
[2021-04-15] MEDS: Cefepime 1 GM in Sodium Chloride 0.9% 100 ML IVPB SCH (17:21)
[2021-04-15 19:23] LABS: Vancomycin, Random 12.4 ug/mL (See Comment)
[2021-04-15] MEDS: Famotidine/PF 20 mg/2ml Vial SLOW IVP SCH (21:07)
[2021-04-15] MEDS: Vancomycin 1 GM in Premix Bag 1 BAG IVPB SCH (21:16)
[2021-04-16] MEDS: Propofol 1,000 MG/100 ML VIAL IV PRN ×4 (01:48→15:46)
[2021-04-16 03:56] LABS: #Basophils 0.1 thou/uL (0.0-0.2); #Eosinphils 0.2 thou/uL (0.0-0.7); #Monocytes 0.8 thou/uL (0.11-0.59); #Neutrophils 5.5 thou/uL (1.40-6.50); %Lymphocytes 22.8 % (21.0-51.0); %Monocytes 9.8 % (0.0-10.0); %Neutrophils 64.4 % (42.0-75.0); Hemoglobin 13.7 g/dL (14.0-18.0); Mean Corpuscular HGB CONC 32.9 g/dL (32.0-36.0); Mean Corpuscular Volume 91.4 fL (78.0-98.0); Mean Platelet Volume 7.2 fL (7.4-10.4); Platelet Count 189 thou/uL (130-400); Red Blood Cell (RBC) Count 4.58 mill/uL (4.70-6.10); White Blood Cell (WBC) Count 8.5 thou/uL (4.8-10.8)
[2021-04-16 04:07] LABS: ALT (SGPT) 33 U/L (8-55); AST (SGOT) 34 U/L (5-34); Albumin 3.2 g/dL (3.4-4.8); Alkaline Phosphatase 78 U/L (40-110); Anion Gap 16 mmol/L (10-20); BUN (Urea Nitrogen) 43 mg/dL (8.4-25.7); Bilirubin, Total 1.3 mg/dL (0.2-1.2); Calc. Creatinine Clearance 60 mL/min (70-130); Calcium 8.6 mg/dL (7.8-10.44); Carbon Dioxide 22 mmol/L (23-31); Chloride 109 mmol/L (98-107); Globulin 2.3 g/dL (2.4-3.5); Glucose 141 mg/dL (80-115); Phosphorus 2.3 mg/dL (2.3-4.7); Potassium 3.7 mmol/L (3.5-5.1); Protein, Total 5.5 g/dL (5.8-8.1); Sodium 143 mmol/L (136-145)
[2021-04-16] MEDS: Lorazepam 2 MG/ML VIAL SLOW IVP PRN (05:09)
[2021-04-16] MEDS: Pantoprazole 40 MG VIAL IVP SCH (08:09)
[2021-04-16] MEDS: Heparin 5,000 UNITS/ML VIAL SC SCH (08:09)
[2021-04-16] MEDS: Sodium Chloride 0.9% 1,000 ML IV SCH ×2 (08:43→10:22)
[2021-04-16 08:56] LABS: Actual Bicarbonate (HCO3a) 18.7 mEq/L (22-28); Base Excess (BEa) -1.2 mEq/L (-2.0 to +3.0); Calcium, Ionized (arterial) 1.12 mmol/L (1.12-1.30); Carboxyhemoglobin (COHb) 0.5 gm% (0.0-3.0); Hemoglobin (Hb) 14.4 g/dL (14.0-18.0); O2 Tension (PaO2), arterial 69.7 mmHg (> 80.0); Potassium - ABG Lab 3.69 mmol/L (3.70-5.30)
[2021-04-16 08:57] LABS: CO2 Tension 21.2 mmHg (35.0-45.0); Puncture Site RRA; pH, Arterial 7.56 (7.35-7.45)
[2021-04-16] MEDS ORDERED: Communication Order-Pharmacy FS ONE (10:06)
[2021-04-16] MEDS ORDERED: Fentanyl CADD 100 ML ONE (10:24)
[2021-04-16] MEDS: Fentanyl CADD 100 ML IV SCH (10:29)
[2021-04-16] MEDS ORDERED: Enoxaparin Sodium 120 MG/0.8 ML SYRINGE SC SCH (10:30)
[2021-04-16] MEDS: HumaLOG 300 UNITS/3 ML VIAL SC PRN ×2 (10:52→16:17)
[2021-04-16 13:29] LABS: Hemoglobin 13.9 g/dL (14.0-18.0); Platelet Count 168 thou/uL (130-400)
[2021-04-16] MEDS ORDERED: Digoxin 0.5 MG/2 ML AMP SLOW IVP SCH (13:30)
[2021-04-16] MEDS: Sodium Chloride 0.45% 500 ML IV SCH ×2 (13:42→16:52)
[2021-04-16] MEDS: Diltiazem 125 MG in Sodium Chloride 0.9% 100 ML IVPB SCH (14:01)
[2021-04-16] MEDS: Cefepime 1 GM in Sodium Chloride 0.9% 100 ML IVPB SCH (17:17)
[2021-04-16] MEDS ORDERED: Sodium Chloride 0.45% 500 ML IV SCH (17:45)
[2021-04-16] MEDS ORDERED: Phenylephrine 40 MG in Sodium Chloride 0.9% 250 ML 250 ML IVPB SCH (17:45)
[2021-04-16] MEDS: Phenylephrine 40 MG in Sodium Chloride 0.9% 250 ML 250 ML IVPB SCH (20:36)
[2021-04-16] MEDS: Vancomycin 1 GM in Premix Bag 1 BAG IVPB SCH (21:05)
[2021-04-16] MEDS: Enoxaparin Sodium 120 MG/0.8 ML SYRINGE SC SCH (21:05)
[2021-04-17 05:01] LABS: #Basophils 0.1 thou/uL (0.0-0.2); #Eosinphils 0.3 thou/uL (0.0-0.7); #Lymphocytes 2.1 thou/uL (1.20-3.40); #Monocytes 1.4 thou/uL (0.11-0.59); #Neutrophils 8.6 thou/uL (1.40-6.50); %Basophils 0.7 % (0.0-1.0); %Eosinophils 2.7 % (0.0-10.0); %Lymphocytes 16.8 % (21.0-51.0); %Monocytes 11.1 % (0.0-10.0); %Neutrophils 68.7 % (42.0-75.0); Hemoglobin 14.1 g/dL (14.0-18.0); Mean Corpuscular HGB CONC 30.2 g/dL (32.0-36.0); Mean Corpuscular Hemoglobin 28.7 pg (27.0-31.0); Mean Corpuscular Volume 94.9 fL (78.0-98.0); Mean Platelet Volume 7.3 fL (7.4-10.4); Platelet Count 204 thou/uL (130-400); RBC Distribution Width 13.2 % (11.5-14.5); White Blood Cell (WBC) Count 12.5 thou/uL (4.8-10.8)
[2021-04-17 05:23] LABS: ALT (SGPT) 27 U/L (8-55); AST (SGOT) 30 U/L (5-34); Albumin 3.2 g/dL (3.4-4.8); Alkaline Phosphatase 98 U/L (40-110); Anion Gap 13 mmol/L (10-20); BUN (Urea Nitrogen) 38 mg/dL (8.4-25.7); Bilirubin, Total 1.2 mg/dL (0.2-1.2); Calc. Creatinine Clearance 65 mL/min (70-130); Calcium 8.2 mg/dL (7.8-10.44); Carbon Dioxide 25 mmol/L (23-31); Chloride 108 mmol/L (98-107); Globulin 2.4 g/dL (2.4-3.5); Glucose 181 mg/dL (80-115); Phosphorus 5.6 mg/dL (2.3-4.7); Potassium 4.9 mmol/L (3.5-5.1); Protein, Total 5.6 g/dL (5.8-8.1); Sodium 141 mmol/L (136-145)
[2021-04-17] MEDS: Fentanyl CADD 100 ML IV SCH (06:42)
[2021-04-17] MEDS: HumaLOG 300 UNITS/3 ML VIAL SC PRN ×2 (06:42→22:00)
[2021-04-17 07:36] LABS: Actual Bicarbonate (HCO3a) 19.9 mEq/L (22-28); Base Excess (BEa) -4.2 mEq/L (-2.0 to +3.0); CO2 Tension 33.8 mmHg (35.0-45.0); Calcium, Ionized (arterial) 1.13 mmol/L (1.12-1.30); Carboxyhemoglobin (COHb) 0.9 gm% (0.0-3.0); Hemoglobin (Hb) 14.8 g/dL (14.0-18.0); O2 Tension (PaO2), arterial 63.4 mmHg (> 80.0); Potassium - ABG Lab 4.74 mmol/L (3.70-5.30); pH, Arterial 7.39 (7.35-7.45)
[2021-04-17 07:40] LABS: Puncture Site RRA
[2021-04-17] MEDS: Propofol 1,000 MG/100 ML VIAL IV PRN ×3 (07:41→18:01)
[2021-04-17] MEDS: Enoxaparin Sodium 120 MG/0.8 ML SYRINGE SC SCH ×2 (07:41→21:05)
[2021-04-17] MEDS: Pantoprazole 40 MG VIAL IVP SCH (07:41)
[2021-04-17] MEDS: Sodium Chloride 0.9% 1,000 ML IV SCH (07:41)
[2021-04-17] MEDS: Diltiazem 125 MG in Sodium Chloride 0.9% 100 ML IVPB SCH (11:15)
[2021-04-17] MEDS: Phenylephrine 40 MG in Sodium Chloride 0.9% 250 ML 250 ML IVPB SCH (11:18)
[2021-04-17] MEDS ORDERED: Morphine 4 MG/ML VIAL SLOW IVP PRN (14:30)
[2021-04-17] MEDS: Cefepime 1 GM in Sodium Chloride 0.9% 100 ML IVPB SCH (18:00)
[2021-04-17] MEDS: Vancomycin 1 GM in Premix Bag 1 BAG IVPB SCH (21:05)
[2021-04-17] MEDS: Lorazepam 2 MG/ML VIAL SLOW IVP PRN (22:52)
[2021-04-18] MEDS: Sodium Chloride 0.9% 1,000 ML IV SCH ×2 (03:14→09:38)
[2021-04-18 04:35] LABS: #Basophils 0.1 thou/uL (0.0-0.2); #Eosinphils 0.3 thou/uL (0.0-0.7); #Lymphocytes 2.8 thou/uL (1.20-3.40); #Monocytes 1.5 thou/uL (0.11-0.59); #Neutrophils 9.7 thou/uL (1.40-6.50); %Basophils 0.5 % (0.0-1.0); %Eosinophils 2.3 % (0.0-10.0); %Lymphocytes 19.4 % (21.0-51.0); %Monocytes 10.2 % (0.0-10.0); %Neutrophils 67.6 % (42.0-75.0); Hemoglobin 14.7 g/dL (14.0-18.0); Mean Corpuscular HGB CONC 30.2 g/dL (32.0-36.0); Mean Corpuscular Hemoglobin 28.9 pg (27.0-31.0); Mean Corpuscular Volume 95.7 fL (78.0-98.0); Mean Platelet Volume 7.2 fL (7.4-10.4); Platelet Count 256 thou/uL (130-400); RBC Distribution Width 13.1 % (11.5-14.5); Red Blood Cell (RBC) Count 5.08 mill/uL (4.70-6.10); White Blood Cell (WBC) Count 14.4 thou/uL (4.8-10.8)
[2021-04-18 05:43] LABS: ALT (SGPT) 45 U/L (8-55); AST (SGOT) 62 U/L (5-34); Albumin 3.2 g/dL (3.4-4.8); Alkaline Phosphatase 140 U/L (40-110); Anion Gap 15 mmol/L (10-20); BUN (Urea Nitrogen) 40 mg/dL (8.4-25.7); Bilirubin, Total 0.9 mg/dL (0.2-1.2); Calc. Creatinine Clearance 66 mL/min (70-130); Calcium 7.9 mg/dL (7.8-10.44); Carbon Dioxide 24 mmol/L (23-31); Chloride 109 mmol/L (98-107); Globulin 2.8 g/dL (2.4-3.5); Glucose 166 mg/dL (80-115); Phosphorus 5.1 mg/dL (2.3-4.7); Potassium 5.5 mmol/L (3.5-5.1); Sodium 142 mmol/L (136-145)
[2021-04-18] MEDS ORDERED: LOKELMA 10 GM PACKET PO SCH (07:15)
[2021-04-18] MEDS: Fentanyl CADD 100 ML IV SCH (07:37)
[2021-04-18 08:04] LABS: Actual Bicarbonate (HCO3a) 22.9 mEq/L (22-28); Base Excess (BEa) -3.5 mEq/L (-2.0 to +3.0); CO2 Tension 46.2 mmHg (35.0-45.0); Calcium, Ionized (arterial) 1.13 mmol/L (1.12-1.30); Carboxyhemoglobin (COHb) 0.9 gm% (0.0-3.0); Hemoglobin (Hb) 14.7 g/dL (14.0-18.0); Potassium - ABG Lab 5.19 mmol/L (3.70-5.30); pH, Arterial 7.31 (7.35-7.45)
[2021-04-18 08:05] LABS: O2 Tension (PaO2), arterial 59.9 mmHg (> 80.0); Puncture Site RRA
[2021-04-18] MEDS: Lorazepam 2 MG/ML VIAL SLOW IVP PRN ×3 (08:21→13:33)
[2021-04-18] MEDS: Enoxaparin Sodium 120 MG/0.8 ML SYRINGE SC SCH ×2 (08:23→20:32)
[2021-04-18] MEDS ORDERED: Acetaminophen 325 MG TAB PO PRN (08:43)
[2021-04-18] MEDS: Pantoprazole 40 MG VIAL IVP SCH (08:47)
[2021-04-18] MEDS: Acetaminophen 325 MG TAB PO PRN ×2 (09:25→16:23)
[2021-04-18] MEDS: Propofol 1,000 MG/100 ML VIAL IV PRN ×2 (09:57→19:23)
[2021-04-18] MEDS: HumaLOG 300 UNITS/3 ML VIAL SC PRN ×3 (10:06→21:51)
[2021-04-18 10:14] LABS: Triglycerides 150 mg/dL (Less than 150)
[2021-04-18] MEDS ORDERED: Senokot S 8.6-50 MG TAB PO SCH (10:30)
[2021-04-18] MEDS ORDERED: Polyethylene Glycol 3350 17 GM Packet PER TUBE SCH (10:30)
[2021-04-18] MEDS: Polyethylene Glycol 3350 17 GM Packet PER TUBE SCH (10:44)
[2021-04-18] MEDS: Senokot S 8.6-50 MG TAB PO SCH ×2 (10:44→20:32)
[2021-04-18] MEDS: Vancomycin 1.5 GRAM/300 ML BAG 1.5 GM in Premix Bag 1 BAG IVPB SCH (14:06)
[2021-04-18] MEDS: Phenylephrine 40 MG in Sodium Chloride 0.9% 250 ML 250 ML IVPB SCH (14:46)
[2021-04-18] MEDS ORDERED: Bisacodyl 10 MG SUPP PR PRN (17:16)
[2021-04-18] MEDS ORDERED: Bisacodyl 10 MG SUPP PR SCH (17:30)
[2021-04-18] MEDS: Cefepime 1 GM in Sodium Chloride 0.9% 100 ML IVPB SCH (17:35)
[2021-04-19] MEDS: Phenylephrine 40 MG in Sodium Chloride 0.9% 250 ML 250 ML IVPB SCH ×2 (02:22→18:33)
[2021-04-19] MEDS ORDERED: Fentanyl CADD 100 ML ONE (02:42)
[2021-04-19] MEDS: Fentanyl CADD 100 ML IV SCH (02:53)
[2021-04-19] MEDS: Propofol 1,000 MG/100 ML VIAL IV PRN ×6 (04:55→23:43)
[2021-04-19 05:06] LABS: #Basophils 0.1 thou/uL (0.0-0.2); #Eosinphils 0.5 thou/uL (0.0-0.7); #Lymphocytes 2.1 thou/uL (1.20-3.40); #Monocytes 1.5 thou/uL (0.11-0.59); #Neutrophils 10.5 thou/uL (1.40-6.50); %Basophils 0.7 % (0.0-1.0); %Eosinophils 3.3 % (0.0-10.0); %Lymphocytes 14.3 % (21.0-51.0); %Monocytes 10.2 % (0.0-10.0); %Neutrophils 71.4 % (42.0-75.0); Hemoglobin 14.5 g/dL (14.0-18.0); Mean Corpuscular HGB CONC 29.8 g/dL (32.0-36.0); Mean Corpuscular Hemoglobin 29.1 pg (27.0-31.0); Mean Corpuscular Volume 97.6 fL (78.0-98.0); Mean Platelet Volume 7.2 fL (7.4-10.4); Platelet Count 264 thou/uL (130-400); RBC Distribution Width 13.2 % (11.5-14.5); Red Blood Cell (RBC) Count 4.97 mill/uL (4.70-6.10); White Blood Cell (WBC) Count 14.6 thou/uL (4.8-10.8)
[2021-04-19 05:25] LABS: ALT (SGPT) 39 U/L (8-55); AST (SGOT) 43 U/L (5-34); Albumin 3.1 g/dL (3.4-4.8); Alkaline Phosphatase 163 U/L (40-110); Anion Gap 12 mmol/L (10-20); BUN (Urea Nitrogen) 39 mg/dL (8.4-25.7); Bilirubin, Total 0.9 mg/dL (0.2-1.2); Calc. Creatinine Clearance 81 mL/min (70-130); Calcium 8.2 mg/dL (7.8-10.44); Carbon Dioxide 26 mmol/L (23-31); Chloride 110 mmol/L (98-107); Globulin 2.8 g/dL (2.4-3.5); Glucose 162 mg/dL (80-115); Phosphorus 4.2 mg/dL (2.3-4.7); Potassium 5.8 mmol/L (3.5-5.1); Protein, Total 5.9 g/dL (5.8-8.1); Sodium 142 mmol/L (136-145)
[2021-04-19] MEDS: Sodium Chloride 0.9% 1,000 ML IV SCH (06:05)
[2021-04-19 07:31] LABS: Actual Bicarbonate (HCO3a) 23.4 mEq/L (22-28); Base Excess (BEa) -4.6 mEq/L (-2.0 to +3.0); Calcium, Ionized (arterial) 1.22 mmol/L (1.12-1.30); Hemoglobin (Hb) 14.5 g/dL (14.0-18.0); O2 Tension (PaO2), arterial 71.9 mmHg (> 80.0)
[2021-04-19 07:36] LABS: Puncture Site RRA; pH, Arterial 7.25 (7.35-7.45)
[2021-04-19] MEDS: Lorazepam 2 MG/ML VIAL SLOW IVP PRN ×2 (08:27→12:03)
[2021-04-19] MEDS: Acetaminophen 325 MG TAB PO PRN (08:27)
[2021-04-19] MEDS: Polyethylene Glycol 3350 17 GM Packet PER TUBE SCH (09:00)
[2021-04-19] MEDS: Senokot S 8.6-50 MG TAB PO SCH ×2 (09:00→21:11)
[2021-04-19] MEDS: Pantoprazole 40 MG VIAL IVP SCH (09:00)
[2021-04-19] MEDS: HumaLOG 300 UNITS/3 ML VIAL SC PRN ×2 (12:48→22:28)
[2021-04-19] MEDS: Enoxaparin Sodium 120 MG/0.8 ML SYRINGE SC SCH (12:54)
[2021-04-19] MEDS: Vancomycin 1.5 GRAM/300 ML BAG 1.5 GM in Premix Bag 1 BAG IVPB SCH (14:25)
[2021-04-19] MEDS: Cefepime 1 GM in Sodium Chloride 0.9% 100 ML IVPB SCH (17:16)
[2021-04-19 18:53] LABS: Anion Gap 12 mmol/L (10-20); BUN (Urea Nitrogen) 43 mg/dL (8.4-25.7); Calc. Creatinine Clearance 83 mL/min (70-130); Calcium 8.1 mg/dL (7.8-10.44); Carbon Dioxide 23 mmol/L (23-31); Chloride 109 mmol/L (98-107); Glucose 139 mg/dL (80-115); Potassium 5.4 mmol/L (3.5-5.1); Sodium 139 mmol/L (136-145)
[2021-04-19] MEDS: Apixaban 5 MG TAB PO SCH (21:11)
[2021-04-20] MEDS: Acetaminophen 325 MG TAB PO PRN ×2 (03:33→08:31)
[2021-04-20] MEDS: HumaLOG 300 UNITS/3 ML VIAL SC PRN ×2 (03:34→14:45)
[2021-04-20 04:38] LABS: #Basophils 0.1 thou/uL (0.0-0.2); #Eosinphils 0.6 thou/uL (0.0-0.7); #Lymphocytes 1.3 thou/uL (1.20-3.40); #Monocytes 1.5 thou/uL (0.11-0.59); #Neutrophils 10.2 thou/uL (1.40-6.50); %Basophils 0.4 % (0.0-1.0); %Eosinophils 4.6 % (0.0-10.0); %Lymphocytes 9.5 % (21.0-51.0); %Monocytes 10.7 % (0.0-10.0); %Neutrophils 74.7 % (42.0-75.0); Hemoglobin 14.6 g/dL (14.0-18.0); Mean Corpuscular HGB CONC 30.5 g/dL (32.0-36.0); Mean Corpuscular Hemoglobin 29.1 pg (27.0-31.0); Mean Corpuscular Volume 95.3 fL (78.0-98.0); Platelet Count 264 thou/uL (130-400); RBC Distribution Width 13.1 % (11.5-14.5); White Blood Cell (WBC) Count 13.6 thou/uL (4.8-10.8)
[2021-04-20 04:52] LABS: ALT (SGPT) 44 U/L (8-55); AST (SGOT) 60 U/L (5-34); Albumin 3.1 g/dL (3.4-4.8); Alkaline Phosphatase 228 U/L (40-110); Anion Gap 11 mmol/L (10-20); BUN (Urea Nitrogen) 40 mg/dL (8.4-25.7); Bilirubin, Total 0.9 mg/dL (0.2-1.2); Calc. Creatinine Clearance 85 mL/min (70-130); Calcium 8.3 mg/dL (7.8-10.44); Carbon Dioxide 26 mmol/L (23-31); Chloride 109 mmol/L (98-107); Globulin 2.9 g/dL (2.4-3.5); Glucose 236 mg/dL (80-115); Phosphorus 4.1 mg/dL (2.3-4.7); Potassium 5.7 mmol/L (3.5-5.1); Sodium 140 mmol/L (136-145)
[2021-04-20] MEDS: Cefepime 1 GM in Sodium Chloride 0.9% 100 ML IVPB SCH ×2 (06:10→17:28)
[2021-04-20] MEDS: Fentanyl CADD 100 ML IV SCH (06:11)
[2021-04-20 06:44] LABS: Actual Bicarbonate (HCO3a) 23.2 mEq/L (22-28); Base Excess (BEa) -4.1 mEq/L (-2.0 to +3.0); CO2 Tension 51.2 mmHg (35.0-45.0); Carboxyhemoglobin (COHb) 0.9 gm% (0.0-3.0); Hemoglobin (Hb) 14.7 g/dL (14.0-18.0); Potassium - ABG Lab 5.23 mmol/L (3.70-5.30); pH, Arterial 7.27 (7.35-7.45)
[2021-04-20 06:45] LABS: O2 Tension (PaO2), arterial 56.2 mmHg (> 80.0)
[2021-04-20 06:46] LABS: Puncture Site RRA
[2021-04-20] MEDS ORDERED: Fludrocortisone Acetate 0.1 MG TAB PER TUBE SCH (07:30)
[2021-04-20] MEDS: Polyethylene Glycol 3350 17 GM Packet PER TUBE SCH (08:28)
[2021-04-20] MEDS: Senokot S 8.6-50 MG TAB PO SCH ×2 (08:28→20:40)
[2021-04-20] MEDS: Propofol 1,000 MG/100 ML VIAL IV PRN ×2 (08:29→15:01)
[2021-04-20] MEDS: Apixaban 5 MG TAB PO SCH ×2 (08:29→20:41)
[2021-04-20] MEDS: Pantoprazole 40 MG VIAL IVP SCH (08:29)
[2021-04-20] MEDS: Phenylephrine 40 MG in Sodium Chloride 0.9% 250 ML 250 ML IVPB SCH (12:56)
[2021-04-20 13:54] VITALS: BMI 43.2
[2021-04-20] MEDS ORDERED: Furosemide 100 MG/10 ML VIAL SLOW IVP SCH (14:00)
[2021-04-20] MEDS ORDERED: Magnesium Citrate 300 ML BOT PO SCH (14:00)
[2021-04-20 14:58] LABS: Vancomycin, Trough 13.4 ug/mL
[2021-04-20 14:59] LABS: Anion Gap 11 mmol/L (10-20); BUN (Urea Nitrogen) 40 mg/dL (8.4-25.7); Calc. Creatinine Clearance 94 mL/min (70-130); Calcium 8.2 mg/dL (7.8-10.44); Carbon Dioxide 25 mmol/L (23-31); Chloride 109 mmol/L (98-107); Glucose 206 mg/dL (80-115); Potassium 5.3 mmol/L (3.5-5.1); Sodium 140 mmol/L (136-145)
[2021-04-20] MEDS: Sodium Chloride 0.9% 1,000 ML IV SCH (14:59)
[2021-04-20] MEDS: Vancomycin 1.5 GRAM/300 ML BAG 1.5 GM in Premix Bag 1 BAG IVPB SCH (16:00)
[2021-04-20] MEDS ORDERED: Methylnaltrexone 12 MG/0.6 ML VIAL SC SCH (20:00)
[2021-04-21] MEDS: Fentanyl CADD 100 ML IV SCH (05:14)
[2021-04-21] MEDS: Propofol 1,000 MG/100 ML VIAL IV PRN ×4 (05:15→16:19)
[2021-04-21] MEDS: Cefepime 1 GM in Sodium Chloride 0.9% 100 ML IVPB SCH ×2 (05:15→16:42)
[2021-04-21] MEDS: Furosemide 100 MG/10 ML VIAL SLOW IVP SCH ×2 (05:15→12:40)
[2021-04-21 05:24] LABS: #Eosinphils 0.6 thou/uL (0.0-0.7); #Monocytes 1.1 thou/uL (0.11-0.59); #Neutrophils 9.3 thou/uL (1.40-6.50); %Basophils 0.1 % (0.0-1.0); %Eosinophils 4.8 % (0.0-10.0); %Lymphocytes 8.5 % (21.0-51.0); %Monocytes 9.3 % (0.0-10.0); %Neutrophils 77.3 % (42.0-75.0); Mean Corpuscular HGB CONC 28.5 g/dL (32.0-36.0); Mean Corpuscular Volume 94.7 fL (78.0-98.0); Platelet Count 264 thou/uL (130-400); Red Blood Cell (RBC) Count 5.18 mill/uL (4.70-6.10); White Blood Cell (WBC) Count 12.1 thou/uL (4.8-10.8)
[2021-04-21 05:43] LABS: ALT (SGPT) 50 U/L (8-55); AST (SGOT) 54 U/L (5-34); Albumin 2.9 g/dL (3.4-4.8); Alkaline Phosphatase 234 U/L (40-110); Anion Gap 13 mmol/L (10-20); BUN (Urea Nitrogen) 39 mg/dL (8.4-25.7); Bilirubin, Total 1.2 mg/dL (0.2-1.2); Calc. Creatinine Clearance 95 mL/min (70-130); Calcium 8.2 mg/dL (7.8-10.44); Carbon Dioxide 28 mmol/L (23-31); Chloride 106 mmol/L (98-107); Globulin 2.8 g/dL (2.4-3.5); Glucose 247 mg/dL (80-115); Magnesium 2.4 mg/dL (1.6-2.6); Phosphorus 3.4 mg/dL (2.3-4.7); Potassium 4.9 mmol/L (3.5-5.1); Protein, Total 5.7 g/dL (5.8-8.1); Sodium 142 mmol/L (136-145)
[2021-04-21] MEDS: HumaLOG 300 UNITS/3 ML VIAL SC PRN ×4 (06:18→20:30)
[2021-04-21 07:50] LABS: Actual Bicarbonate (HCO3a) 26.5 mEq/L (22-28); Base Excess (BEa) 0.7 mEq/L (-2.0 to +3.0); CO2 Tension 46.4 mmHg (35.0-45.0); Calcium, Ionized (arterial) 1.11 mmol/L (1.12-1.30); Carboxyhemoglobin (COHb) 1.1 gm% (0.0-3.0); Hemoglobin (Hb) 14.5 g/dL (14.0-18.0); Potassium - ABG Lab 4.28 mmol/L (3.70-5.30); pH, Arterial 7.37 (7.35-7.45)
[2021-04-21] MEDS: Senokot S 8.6-50 MG TAB PO SCH ×2 (08:06→20:42)
[2021-04-21] MEDS: Apixaban 5 MG TAB PO SCH ×2 (08:06→20:24)
[2021-04-21] MEDS: Pantoprazole 40 MG VIAL IVP SCH (08:06)
[2021-04-21] MEDS: Polyethylene Glycol 3350 17 GM Packet PER TUBE SCH (08:06)
[2021-04-21 08:24] LABS: O2 Tension (PaO2), arterial 58.7 mmHg (> 80.0); Puncture Site RRA
[2021-04-21] MEDS: Sodium Chloride 0.9% 1,000 ML IV SCH (11:07)
[2021-04-21] MEDS: Vancomycin 1.5 GRAM/300 ML BAG 1.5 GM in Premix Bag 1 BAG IVPB SCH (14:32)
[2021-04-21] MEDS: Acetaminophen 325 MG TAB PO PRN (20:24)
[2021-04-22] MEDS: Fentanyl CADD 100 ML IV SCH ×2 (01:09→18:18)
[2021-04-22] MEDS: Propofol 1,000 MG/100 ML VIAL IV PRN ×6 (03:03→21:42)
[2021-04-22 05:25] LABS: #Eosinphils 0.4 thou/uL (0.0-0.7); #Lymphocytes 1.1 thou/uL (1.20-3.40); #Monocytes 0.7 thou/uL (0.11-0.59); #Neutrophils 6.9 thou/uL (1.40-6.50); %Basophils 0.3 % (0.0-1.0); %Eosinophils 3.9 % (0.0-10.0); %Lymphocytes 11.8 % (21.0-51.0); %Monocytes 7.9 % (0.0-10.0); %Neutrophils 76.1 % (42.0-75.0); Hemoglobin 13.5 g/dL (14.0-18.0); Mean Corpuscular HGB CONC 31.3 g/dL (32.0-36.0); Mean Corpuscular Hemoglobin 28.9 pg (27.0-31.0); Mean Corpuscular Volume 92.1 fL (78.0-98.0); Mean Platelet Volume 7.9 fL (7.4-10.4); Platelet Count 263 thou/uL (130-400); RBC Distribution Width 12.8 % (11.5-14.5); Red Blood Cell (RBC) Count 4.69 mill/uL (4.70-6.10)
[2021-04-22] MEDS: Cefepime 1 GM in Sodium Chloride 0.9% 100 ML IVPB SCH ×2 (05:30→17:50)
[2021-04-22] MEDS: HumaLOG 300 UNITS/3 ML VIAL SC PRN ×4 (05:30→21:11)
[2021-04-22] MEDS: Sodium Chloride 0.9% 1,000 ML IV SCH ×2 (05:31→16:19)
[2021-04-22 06:54] LABS: ALT (SGPT) 34 U/L (8-55); AST (SGOT) 27 U/L (5-34); Albumin 2.7 g/dL (3.4-4.8); Alkaline Phosphatase 203 U/L (40-110); Anion Gap 11 mmol/L (10-20); BUN (Urea Nitrogen) 38 mg/dL (8.4-25.7); Calc. Creatinine Clearance 108 mL/min (70-130); Calcium 8.3 mg/dL (7.8-10.44); Carbon Dioxide 31 mmol/L (23-31); Chloride 106 mmol/L (98-107); Globulin 2.7 g/dL (2.4-3.5); Glucose 281 mg/dL (80-115); Potassium 3.5 mmol/L (3.5-5.1); Protein, Total 5.4 g/dL (5.8-8.1); Sodium 144 mmol/L (136-145)
[2021-04-22 07:31] LABS: Actual Bicarbonate (HCO3a) 26.2 mEq/L (22-28); Base Excess (BEa) 3.5 mEq/L (-2.0 to +3.0); CO2 Tension 33.7 mmHg (35.0-45.0); Calcium, Ionized (arterial) 1.14 mmol/L (1.12-1.30); Hemoglobin (Hb) 13.9 g/dL (14.0-18.0); Potassium - ABG Lab 3.34 mmol/L (3.70-5.30); pH, Arterial 7.51 (7.35-7.45)
[2021-04-22 08:01] LABS: O2 Tension (PaO2), arterial 51.7 mmHg (> 80.0)
[2021-04-22 08:02] LABS: ALV-art Gradient 619.175 mmHg (0-20); Puncture Site RRA
[2021-04-22] MEDS: Polyethylene Glycol 3350 17 GM Packet PER TUBE SCH (08:22)
[2021-04-22] MEDS: Senokot S 8.6-50 MG TAB PO SCH ×2 (08:22→21:06)
[2021-04-22] MEDS: Apixaban 5 MG TAB PO SCH ×2 (08:22→21:06)
[2021-04-22] MEDS: Pantoprazole 40 MG VIAL IVP SCH (08:22)
[2021-04-22] MEDS: Fludrocortisone Acetate 0.1 MG TAB PO SCH (09:24)
[2021-04-22] MEDS: methylPREDNISolone Sod Succ 40 MG VIAL IVP SCH ×2 (13:44→21:07)
[2021-04-22] MEDS ORDERED: Furosemide 20 MG/2 ML VIAL SLOW IVP SCH (14:30)
[2021-04-22 14:40] LABS: Vancomycin, Trough 10.6 ug/mL
[2021-04-22] MEDS ORDERED: Electrolyte Replacement Protocol 1 EACH FS SCH (16:00)
[2021-04-22] MEDS ORDERED: Potassium Phosphate 30 MMOL in Sodium Chloride 0.9% 500 ML IVPB SCH (16:00)
[2021-04-22] MEDS: Vancomycin 1 GM in Premix Bag 1 BAG IVPB SCH (16:36)
[2021-04-22] MEDS ORDERED: Fentanyl CADD 100 ML ONE ×2 (18:13→21:35)
[2021-04-22 20:18] LABS: SARS-CoV-2 PCR by NAA Not Detected (NotDetected)
[2021-04-23] MEDS: Vancomycin 1 GM in Premix Bag 1 BAG IVPB SCH ×2 (02:42→14:42)
[2021-04-23 04:37] LABS: #Lymphocytes 1.1 thou/uL (1.20-3.40); #Monocytes 0.4 thou/uL (0.11-0.59); #Neutrophils 6.8 thou/uL (1.40-6.50); %Basophils 0.1 % (0.0-1.0); %Eosinophils 0.2 % (0.0-10.0); %Lymphocytes 13.4 % (21.0-51.0); %Monocytes 4.7 % (0.0-10.0); %Neutrophils 81.5 % (42.0-75.0); Hemoglobin 13.7 g/dL (14.0-18.0); Mean Corpuscular HGB CONC 30.8 g/dL (32.0-36.0); Mean Corpuscular Hemoglobin 28.6 pg (27.0-31.0); Mean Corpuscular Volume 92.9 fL (78.0-98.0); Mean Platelet Volume 7.8 fL (7.4-10.4); Platelet Count 275 thou/uL (130-400); RBC Distribution Width 12.9 % (11.5-14.5); Red Blood Cell (RBC) Count 4.78 mill/uL (4.70-6.10); White Blood Cell (WBC) Count 8.3 thou/uL (4.8-10.8)
[2021-04-23 05:02] LABS: ALT (SGPT) 29 U/L (8-55); AST (SGOT) 21 U/L (5-34); Albumin 2.7 g/dL (3.4-4.8); Alkaline Phosphatase 209 U/L (40-110); Anion Gap 14 mmol/L (10-20); BUN (Urea Nitrogen) 40 mg/dL (8.4-25.7); Bilirubin, Total 0.8 mg/dL (0.2-1.2); Calc. Creatinine Clearance 106 mL/min (70-130); Calcium 8.2 mg/dL (7.8-10.44); Carbon Dioxide 28 mmol/L (23-31); Chloride 104 mmol/L (98-107); Globulin 2.7 g/dL (2.4-3.5); Glucose 397 mg/dL (80-115); Potassium 4.3 mmol/L (3.5-5.1); Protein, Total 5.4 g/dL (5.8-8.1); Sodium 142 mmol/L (136-145)
[2021-04-23 05:04] LABS: Magnesium 2.1 mg/dL (1.6-2.6)
[2021-04-23] MEDS: methylPREDNISolone Sod Succ 40 MG VIAL IVP SCH ×3 (06:05→22:20)
[2021-04-23] MEDS: Cefepime 1 GM in Sodium Chloride 0.9% 100 ML IVPB SCH ×2 (06:05→18:41)
[2021-04-23] MEDS: HumaLOG 300 UNITS/3 ML VIAL SC PRN ×2 (06:06→10:18)
[2021-04-23 07:11] LABS: Actual Bicarbonate (HCO3a) 21.1 mEq/L (22-28); Base Excess (BEa) -2.5 mEq/L (-2.0 to +3.0); CO2 Tension 32.9 mmHg (35.0-45.0); Calcium, Ionized (arterial) 1.16 mmol/L (1.12-1.30); Carboxyhemoglobin (COHb) 0.5 gm% (0.0-3.0); Hemoglobin (Hb) 12.3 g/dL (14.0-18.0); O2 Tension (PaO2), arterial 60.2 mmHg (> 80.0); Potassium - ABG Lab 4.91 mmol/L (3.70-5.30); pH, Arterial 7.43 (7.35-7.45)
[2021-04-23 07:31] LABS: Puncture Site LRA
[2021-04-23 07:32] LABS: ALV-art Gradient 611.675 mmHg (0-20)
[2021-04-23] MEDS: Pantoprazole 40 MG VIAL IVP SCH (09:07)
[2021-04-23] MEDS: Polyethylene Glycol 3350 17 GM Packet PER TUBE SCH (09:07)
[2021-04-23] MEDS: Fludrocortisone Acetate 0.1 MG TAB PO SCH (09:07)
[2021-04-23] MEDS: Senokot S 8.6-50 MG TAB PO SCH ×2 (09:07→22:20)
[2021-04-23] MEDS: Apixaban 5 MG TAB PO SCH ×2 (09:07→22:20)
[2021-04-23] MEDS: Propofol 1,000 MG/100 ML VIAL IV PRN ×3 (10:08→22:20)
[2021-04-23] MEDS ORDERED: Fentanyl CADD 100 ML ONE (10:26)
[2021-04-23] MEDS: Fentanyl CADD 100 ML IV SCH (10:31)
[2021-04-23] MEDS ORDERED: Diltiazem HCl 125 MG, Admixture Fee 1 EACH in Sodium Chloride 0.9% 100 ML IVPB SCH (12:00)
[2021-04-23] MEDS ORDERED: Methylnaltrexone 12 MG/0.6 ML VIAL SC SCH (12:00)
[2021-04-23] MEDS ORDERED: NPH, Human Insulin Isophane 300 UNIT/3 ML VIAL SC SCH ×2 (12:00→16:39)
[2021-04-23] MEDS: Acetaminophen 325 MG TAB PO PRN (12:22)
[2021-04-23 16:18] VITALS: TEMP 99.3
[2021-04-23] MEDS: Insulin Regular 300 UNITS/3 ML VIAL SC PRN (16:43)
[2021-04-23] MEDS: Sodium Chloride 0.9% 1,000 ML IV SCH (18:40)
[2021-04-23] MEDS: NPH, Human Insulin Isophane 300 UNIT/3 ML VIAL SC SCH (18:46)
[2021-04-23] MEDS ORDERED: Bisacodyl 10 MG SUPP PR SCH (21:00)
[2021-04-24] MEDS: Insulin Regular 300 UNITS/3 ML VIAL SC PRN ×3 (00:01→10:14)
[2021-04-24 04:35] LABS: #Lymphocytes 1.4 thou/uL (1.20-3.40); #Monocytes 0.5 thou/uL (0.11-0.59); %Basophils 0.2 % (0.0-1.0); %Eosinophils 0.5 % (0.0-10.0); %Lymphocytes 14.3 % (21.0-51.0); %Monocytes 4.5 % (0.0-10.0); %Neutrophils 80.5 % (42.0-75.0); Hemoglobin 13.7 g/dL (14.0-18.0); Mean Corpuscular HGB CONC 31.4 g/dL (32.0-36.0); Mean Corpuscular Hemoglobin 29.2 pg (27.0-31.0); Mean Platelet Volume 7.8 fL (7.4-10.4); Platelet Count 316 thou/uL (130-400); RBC Distribution Width 12.7 % (11.5-14.5); Red Blood Cell (RBC) Count 4.71 mill/uL (4.70-6.10)
[2021-04-24] MEDS: Fentanyl CADD 100 ML IV SCH (04:56)
[2021-04-24] MEDS: Vancomycin 1 GM in Premix Bag 1 BAG IVPB SCH ×2 (04:57→14:21)
[2021-04-24] MEDS: NPH, Human Insulin Isophane 300 UNIT/3 ML VIAL SC SCH ×4 (04:58→17:47)
[2021-04-24 05:05] LABS: Vancomycin, Trough 15.5 ug/mL
[2021-04-24 05:09] LABS: Lipase 41 U/L (8-78); Phosphorus 4.1 mg/dL (2.3-4.7)
[2021-04-24 05:11] LABS: ALT (SGPT) 31 U/L (8-55); AST (SGOT) 25 U/L (5-34); Albumin 2.8 g/dL (3.4-4.8); Alkaline Phosphatase 239 U/L (40-110); Anion Gap 14 mmol/L (10-20); BUN (Urea Nitrogen) 45 mg/dL (8.4-25.7); Bilirubin, Total 0.7 mg/dL (0.2-1.2); Calc. Creatinine Clearance 106 mL/min (70-130); Calcium 8.6 mg/dL (7.8-10.44); Carbon Dioxide 27 mmol/L (23-31); Chloride 104 mmol/L (98-107); Globulin 2.8 g/dL (2.4-3.5); Glucose 418 mg/dL (80-115); Magnesium 2.4 mg/dL (1.6-2.6); Potassium 4.7 mmol/L (3.5-5.1); Protein, Total 5.6 g/dL (5.8-8.1); Sodium 140 mmol/L (136-145)
[2021-04-24 05:17] LABS: Lactic Acid 1.8 mmol/L (0.5-2.2)
[2021-04-24] MEDS: Cefepime 1 GM in Sodium Chloride 0.9% 100 ML IVPB SCH (05:49)
[2021-04-24] MEDS: methylPREDNISolone Sod Succ 40 MG VIAL IVP SCH ×2 (05:49→14:12)
[2021-04-24] MEDS: Propofol 1,000 MG/100 ML VIAL IV PRN ×3 (05:59→14:11)
[2021-04-24 07:25] LABS: Base Excess (BEa) 0.3 mEq/L (-2.0 to +3.0); CO2 Tension 45.5 mmHg (35.0-45.0); Calcium, Ionized (arterial) 1.23 mmol/L (1.12-1.30); Carboxyhemoglobin (COHb) 0.6 gm% (0.0-3.0); Hemoglobin (Hb) 13.9 g/dL (14.0-18.0); O2 Tension (PaO2), arterial 73.5 mmHg (> 80.0); Potassium - ABG Lab 4.35 mmol/L (3.70-5.30); pH, Arterial 7.37 (7.35-7.45)
[2021-04-24 07:27] LABS: Puncture Site RRA
[2021-04-24 07:28] LABS: ALV-art Gradient 582.625 mmHg (0-20)
[2021-04-24] MEDS: Senokot S 8.6-50 MG TAB PO SCH (09:19)
[2021-04-24] MEDS: Apixaban 5 MG TAB PO SCH (09:19)
[2021-04-24] MEDS: Polyethylene Glycol 3350 17 GM Packet PER TUBE SCH (09:20)
[2021-04-24] MEDS: Pantoprazole 40 MG VIAL IVP SCH (09:20)
[2021-04-24] MEDS ORDERED: Lantus 1000 UNITS/10 ML VIAL SC SCH (12:45)
[2021-04-24 14:24] VITALS: BP 112/87
[2021-04-24] MEDS ORDERED: EPINEPHrine 1 MG/10 ML Abboject SYRINGE ONE (14:50)
[2021-04-24] MEDS ORDERED: Atropine Sulfate 1 mg/10 ml Syringe ONE ×2 (14:50→15:09)
[2021-04-24] MEDS ORDERED: Sodium Bicarb 50 MEQ/50 ML Abboject 8.4% SYRINGE ONE (14:50)
[2021-04-24] MEDS ORDERED: Norepinephrine 8 MG/0.9% NS 250 ML ONE (14:56)
[2021-04-24 15:06] LABS: Actual Bicarbonate (HCO3a) 34.9 mEq/L (22-28); Calcium, Ionized (arterial) 1.22 mmol/L (1.12-1.30); Carboxyhemoglobin (COHb) 0.6 gm% (0.0-3.0); Hemoglobin (Hb) 15.6 g/dL (14.0-18.0); Potassium - ABG Lab 3.98 mmol/L (3.70-5.30)
[2021-04-24 15:52] LABS: CO2 Tension 84.4 mmHg (35.0-45.0); O2 Tension (PaO2), arterial 36.5 mmHg (> 80.0); Puncture Site RFA; pH, Arterial 7.23 (7.35-7.45)
[2021-04-24 16:12] LABS: Actual Bicarbonate (HCO3a) 24.2 mEq/L (22-28); Calcium, Ionized (arterial) 1.15 mmol/L (1.12-1.30); Carboxyhemoglobin (COHb) 1.1 gm% (0.0-3.0); Hemoglobin (Hb) 15.4 g/dL (14.0-18.0); Potassium - ABG Lab 3.97 mmol/L (3.70-5.30)
[2021-04-24 16:13] LABS: CO2 Tension 69.2 mmHg (35.0-45.0); O2 Tension (PaO2), arterial 41.7 mmHg (> 80.0); Puncture Site Arterial Line; pH, Arterial 7.16 (7.35-7.45)
[2021-04-24] MEDS ORDERED: Vecuronium 10 MG VIAL ONE (16:16)
[2021-04-24] MEDS ORDERED: Vecuronium 10 MG VIAL IV PRN (16:46)
[2021-04-24] MEDS: Sodium Chloride 0.9% 1,000 ML IV SCH (17:26)
[2021-04-24] MEDS ORDERED: Sodium Bicarbonate 150 MEQ in Dextrose 5% in Water 1,000 ML IV SCH (18:00)
[2021-04-24] MEDS ORDERED: EPINEPHrine 4 MG in Dextrose 5% in Water 250 ML IV SCH (18:00)
[2021-04-24] MEDS ORDERED: Meropenem 2 GM in Sodium Chloride 0.9% 100 ML IVPB SCH (18:00)
[2021-04-24] MEDS ORDERED: Norepinephrine 8 MG/0.9% NS 250 ML IVPB SCH (18:30)
== END 2021-04-24 18:28 | disposition expired | DRG 870 ==
LOC: ERS 13:34 → ERHOLD 16:15 → CCU 18:37
PROVIDERS: ADMIT Internal Medicine; ATTEND Internal Medicine
PROC: 5A1955Z Respiratory Ventilation, Greater than 96 Consecutive Hours (ICD-10-PCS; principal; 2021-04-14)
PROC: 3E033XZ Introduction of Vasopressor into Peripheral Vein, Percutaneous Approach (ICD-10-PCS; 2021-04-14)
PROC: 0BH17EZ Insertion of Endotracheal Airway into Trachea, Via Natural or Artificial Opening (ICD-10-PCS; 2021-04-14)
PROC: 06HY33Z Insertion of Infusion Device into Lower Vein, Percutaneous Approach (ICD-10-PCS; 2021-04-14)
PROC: 0D9670Z Drainage of Stomach with Drainage Device, Via Natural or Artificial Opening (ICD-10-PCS; 2021-04-14)
PROC: 5A1D70Z Performance of Urinary Filtration, Intermittent, Less than 6 Hours Per Day (ICD-10-PCS; 2021-04-14)
PROC: 04HY32Z Insertion of Monitoring Device into Lower Artery, Percutaneous Approach (ICD-10-PCS; 2021-04-24)
PROC: 06HY33Z Insertion of Infusion Device into Lower Vein, Percutaneous Approach (ICD-10-PCS; 2021-04-24)
PROC: 5A12012 Performance of Cardiac Output, Single, Manual (ICD-10-PCS; 2021-04-24)
DX: A41.9 Sepsis, unspecified organism (principal); J96.01 Acute respiratory failure with hypoxia; G93.41 Metabolic encephalopathy; J96.02 Acute respiratory failure with hypercapnia; R65.21 Severe sepsis with septic shock; J18.9 Pneumonia, unspecified organism; N17.9 Acute kidney failure, unspecified; Z68.41 Body mass index [BMI] 40.0-44.9, adult; I13.0 Hypertensive heart and chronic kidney disease with heart failure and stage 1 through stage 4 chronic kidney disease, or unspecified chronic kidney disease; I48.21 Permanent atrial fibrillation; M62.82 Rhabdomyolysis; E27.40 Unspecified adrenocortical insufficiency; K56.7 Ileus, unspecified; E87.2 Acidosis; Z66 Do not resuscitate; Z20.822 Contact with and (suspected) exposure to COVID-19; E87.5 Hyperkalemia; N18.30 Chronic kidney disease, stage 3 unspecified; E87.6 Hypokalemia; E83.39 Other disorders of phosphorus metabolism; F41.9 Anxiety disorder, unspecified; F31.9 Bipolar disorder, unspecified; E66.01 Morbid (severe) obesity due to excess calories; J98.6 Disorders of diaphragm; F25.9 Schizoaffective disorder, unspecified; R79.89 Other specified abnormal findings of blood chemistry; I50.9 Heart failure, unspecified; E11.22 Type 2 diabetes mellitus with diabetic chronic kidney disease; R00.1 Bradycardia, unspecified; E11.65 Type 2 diabetes mellitus with hyperglycemia; D63.1 Anemia in chronic kidney disease; R45.1 Restlessness and agitation; Z90.49 Acquired absence of other specified parts of digestive tract; Z78.1 Physical restraint status; Z90.89 Acquired absence of other organs; Z87.891 Personal history of nicotine dependence; Z79.899 Other long term (current) drug therapy; Z79.84 Long term (current) use of oral hypoglycemic drugs; Z79.82 Long term (current) use of aspirin; Z79.02 Long term (current) use of antithrombotics/antiplatelets; Z86.16 Personal history of COVID-19; I46.9 Cardiac arrest, cause unspecified; K59.00 Constipation, unspecified
CPT/HCPCS: 31500; 36415; 36416; 36556; 36600; 70450; 71045; 71275; 74018; 76705; 80053; 80202; 80306; 80307; 81003; 81015; 82010; 82550; 82553; 82805; 83605; 83690; 83735; 83880; 84100; 84145; 84478; 84484; 85025; 85379; 86140; 86704; 86706; 86803; 86850; 86900; 86901; 87040; 87070; 87205; 87340; 93005; 93010; 93306; 94002; 94003; 94640; 96365; 96366; 96367; 96368; 96375; 99292; C9113; J0171; J0461; J0692; J1160; J1644; J1650; J1720; J1815; J1940; J2060; J2212; J2270; J2370; J2704; J2920; J3010; J3370; J3490; J7030; J7050; J7070; J7611; J7620; P9047; Q9967; S0028; U0002; U0003; U0005